=== PATIENT | male | born 1955 | race Caucasian/White ===

== ENCOUNTER → 2017-02-06 | Outpatient (REF) | payer OTHER | LOC: M SFHCPLAZ 10:06 | PROVIDERS: ATTEND Family Medicine | DX: K74.60 Unspecified cirrhosis of liver (principal); R63.4 Abnormal weight loss; B18.2 Chronic viral hepatitis C; K52.9 Noninfective gastroenteritis and colitis, unspecified; Z53.9 Procedure and treatment not carried out, unspecified reason ==

== ENCOUNTER → 2017-02-12 | Outpatient (CLI) | payer OTHER ==
[2017-02-12 19:22] LABS: MEAN CORPUSCULAR HGB CONC 34.2 g/dl (32.0-36.5); MEAN CORPUSCULAR VOLUME 96.4 fl (80.0-96.0); RED CELL DISTRIBUTION WIDTH 12.2 % (11.5-14.5); WHITE BLOOD COUNT 5.3 K/mm3 (4.0-10.0)
[2017-02-12 19:32] LABS: ALBUMIN 4.2 GM/DL (3.2-5.2); ALBUMIN/GLOBULIN RATIO 1.11 (1.00-1.93); ALKALINE PHOSPHATASE 108 U/L (45-117); ALT/SGPT 89 U/L (12-78); ANION GAP 10 MEQ/L (8-16); AST/SGOT 84 U/L (15-37); BILIRUBIN,TOTAL 0.6 MG/DL (0.2-1.0); BLOOD UREA NITROGEN 5 MG/DL (7-18); CARBON DIOXIDE LEVEL 23 MEQ/L (21-32); CHLORIDE LEVEL 100 MEQ/L (98-107); CREATININE FOR GFR 0.58 MG/DL (0.70-1.30); FREE T4 0.88 NG/DL (0.76-1.46); GLOMERULAR FILTRATION RATE > 60.0 (>56); GLUCOSE, FASTING 109 MG/DL (70-105); POTASSIUM SERUM 3.8 MEQ/L (3.5-5.1); SODIUM LEVEL 133 MEQ/L (136-145)
--- NOTE | 2017-02-12 23:42 | REP ---
Clinical: Abnormal weight loss. Comparison: None. Findings: The bilateral lung collins are well-aerated and demonstrate minimal emphysematous changes along with mild bronchiectasis. A small calcified granuloma is noted in the right lower lobe along with few calcified mediastinal lymph nodes suggesting prior granulomatous disease. No acute consolidation, nodule, or mass lesion appreciated. No pleural effusion/reaction or pneumothorax. Tracheobronchial tree is patent. No adenopathy. Mild atherosclerotic changes to the thoracic aorta and coronary arteries noted without aortic aneurysm, cardiomegaly, or pericardial effusion. Impression: Mild emphysematous changes and prior granulomatous disease. No acute mediastinal or pleuroparenchymal process appreciated. Signed by Odilon Perez MD 02/12/2017 11:33 P
--- NOTE | 2017-02-13 06:39 | REP ---
Clinical: Headache. Abnormal weight loss . Comparison: None . Findings: The ventricles, sulci, and cisterns are normal in position and appearance. Lamb-white differentiation is maintained. No acute intracranial hemorrhage, mass/mass effect, pathology or trauma/injury. No evidence for acute infarction. No extra-axial fluid collection. Calvarium is intact. Paranasal sinuses and mastoid air cells are clear. Impression: Normal noncontrast head CT. No evidence for acute intracranial pathology or trauma/injury. Signed by Odilon Perez MD 02/13/2017 06:30 A
[2017-02-18 14:18] LABS: Chitobioside Carbohydrat (ACCA 56 units (0-90); HEPATITIS C QUANTITATION HCV Not Detected IU/mL (.); Laminaribioside Carbohyd (ALCA 64 units (0-60); Mannobioside Carbohydrat (AMCA 112 units (0-100); Saccharomyces cerevisiae IgG A 32 units (0-50)
== END ==
LOC: M LAB 18:03
PROVIDERS: ATTEND Family Medicine
DX: J44.9 Chronic obstructive pulmonary disease, unspecified (principal); R63.4 Abnormal weight loss; G44.309 Post-traumatic headache, unspecified, not intractable; K74.60 Unspecified cirrhosis of liver; B18.2 Chronic viral hepatitis C; K52.9 Noninfective gastroenteritis and colitis, unspecified

== ENCOUNTER → 2017-02-22 | Outpatient (REF) | payer OTHER | LOC: M LAB REF 11:50 | PROVIDERS: ATTEND Family Medicine | DX: K52.9 Noninfective gastroenteritis and colitis, unspecified (principal) ==

== ENCOUNTER → 2017-04-22 | Outpatient (CLI) | payer OTHER ==
[~2017-04-22] MED LIST: FLUT1SPR2; FOLI1TAB4; MELO15TA4 PO; OMEP20CA3 PO; TRAZ-136 PO; VITA100T2
--- NOTE | 2017-04-22 09:46 | REP ---
RIGHT UPPER QUADRANT ULTRASOUND: Real-time sonographic evaluation of the right upper quadrant performed and compared to a prior study of . The gallbladder demonstrates no evidence of gallstones. There is no gallbladder wall thickening or pericholecystic fluid. There is no intrahepatic or extrahepatic biliary dilatation, the common bile duct measuring 6 mm in diameter. The liver and pancreas demonstrate homogeneous echotexture with no gross mass, pancreatic tail is not well seen due to overlying bowel gas. Right kidney demonstrates no hydronephrosis or nephrolithiasis with normal size at 12.3 cm in length. IMPRESSION: Essentially negative right upper quadrant ultrasound. Signed by Henrique Lamb MD 04/22/2017 11:58 A
== END ==
LOC: M RAD 08:52
PROVIDERS: ATTEND Family Medicine
DX: B18.2 Chronic viral hepatitis C (principal)

== ENCOUNTER → 2017-05-15 | Outpatient (CLI) | payer OTHER ==
[~2017-05-15] MED LIST changes: +GASTROGRAFIN SOLUTION 30ML (Q9963) As Ordered ONE; +ISOVUE-370 76% 100ML VIAL (Q9967) As Ordered ONE
--- NOTE | 2017-05-16 14:33 | REP ---
Nickel: Abnormal weight loss. Technique: Axial contrast enhanced images from the lung bases to the pubic symphysis using oral and 100 ml Isovue 370 intravenous contrast material with precontrast and delayed images of the abdomen as well as coronal and sagittal re-formations. Findings: Lung bases are clear. Visualized heart and pericardium are normal. Liver, spleen, pancreas, gallbladder, bilateral adrenal glands and kidneys are normal. Prominent lymph nodes in the livia hepatis and epigastric region above the level of the pancreatic head/neck measure up to 17 mm and are otherwise nonspecific. The enteric system including stomach, small and large bowel is without obstruction or acute inflammatory process. Surgical clips in the right lower quadrant suggest prior appendectomy. Pelvis demonstrates normal bladder and mildly prominent prostate gland measuring 4.9 cm maximal diameter. No pelvic fluid or ascites. No retroperitoneal adenopathy. No free air. Impression: 1. Mildly prominent lymph nodes in the livia hepatis and epigastric region are otherwise nonspecific. No obvious upper abdominal mass lesion or further pathology is appreciated at CT evaluation. 2. Prominent prostate gland measuring 4.9 cm maximal diameter. Signed by Odilon Perez MD 05/16/2017 12:25 A
== END ==
LOC: M RAD 09:09
PROVIDERS: ATTEND Internal Medicine Gastroenterology
DX: R63.4 Abnormal weight loss (principal)
CPT/HCPCS: 74178; Q9963; Q9967

== ENCOUNTER → 2017-05-23 | Outpatient (CLI) | payer OTHER ==
[~2017-05-23] VITALS: Ht 177.8 cm; Wt 68.9 kg
[~2017-05-23] MED LIST changes: -GASTROGRAFIN SOLUTION 30ML (Q9963) As Ordered ONE; -ISOVUE-370 76% 100ML VIAL (Q9967) As Ordered ONE; +LIDOCAINE 2% INJ 100 MG/5 ML SDV (FOR ANES.) As Ordered ONE; +NS 1,000 ML IV ONE; +PROPOFOL 200 MG/20 ML VIAL As Ordered ONE
--- NOTE | 2017-05-23 12:10 | ROOR ---
Patient Name: Maverick Benjamin Procedure Date: 05/23/2017 11:27 AM Date of : 1955 Age: 61 Room: [facility] Gender: Male Note Status: Finalized Procedure: Upper GI endoscopy Indications: Cirrhosis with suspected esophageal varices, Weight loss Providers: Kali Hampton MD Referring MD: Yonatan Ortiz MD Requesting Provider: Medicines: Monitored Anesthesia Care Complications: No immediate complications. Procedure: Pre-Anesthesia Assessment: - Prior to the procedure, a History and Physical was performed, and patient medications and allergies were reviewed. The patient is competent. The risks and benefits of the procedure and the sedation options and risks were discussed with the patient. All questions were answered and informed consent was obtained. Patient identification and proposed procedure were verified by the physician, the nurse and the fishery biologist in the procedure room. Mental Status Examination: normal. Airway Examination: normal oropharyngeal airway and neck mobility. Respiratory Examination: clear to auscultation. CV Examination: normal. Prophylactic Antibiotics: The patient does not require prophylactic antibiotics. Prior Anticoagulants: The patient has taken no previous anticoagulant or antiplatelet agents. ASA Grade Assessment: II - A patient with mild systemic disease. After reviewing the risks and benefits, the patient was deemed in satisfactory condition to undergo the procedure. The anesthesia plan was to use monitored anesthesia care (MAC). Immediately prior to administration of medications, the patient was re-assessed for adequacy to receive sedatives. The heart rate, respiratory rate, oxygen saturations, blood pressure, adequacy of pulmonary ventilation, and response to care were monitored throughout the procedure. The physical status of the patient was re-assessed after the procedure. The Endoscope was introduced through the mouth, and advanced to the second part of duodenum. The upper GI endoscopy was accomplished without difficulty. The patient tolerated the procedure well. Findings: The examined esophagus was normal. There is no endoscopic evidence of varices in the entire esophagus. Diffuse minimal inflammation characterized by erythema and granularity was found in the gastric body and in the gastric antrum. Biopsies were taken with a cold forceps for histology. No gross lesions were noted in the duodenal bulb and in the second portion of the duodenum. Biopsies for histology were taken with a cold forceps for evaluation of celiac disease. Verification of patient identification for the specimen was done by the physician and nurse using the patient's name, date and medical record number. Estimated blood loss was minimal. Impression: - Normal esophagus. - Gastritis. Biopsied. - No gross lesions in the duodenal bulb and in the second portion of the duodenum. Biopsied. Recommendation: - Patient has a contact number available for emergencies. The signs and symptoms of potential delayed complications were discussed with the patient. Return to normal activities tomorrow. Written discharge instructions were provided to the patient. - Resume previous diet. - Continue present medications. - Await pathology results. - Return to GI clinic as previously scheduled 06/06/2017 at 1:30 PM. - Return to primary care physician. Kali Hampton MD Kali Hampton MD 05/23/2017 12:10:07 PM This report has been signed electronically. Number of Addenda: 0 Note Initiated On: 05/23/2017 11:27 AM Estimated Blood Loss: Estimated blood loss was minimal.
--- NOTE | 2017-05-23 12:16 | ROOR ---
Patient Name: Maverick Benjamin Procedure Date: 05/23/2017 11:27 AM Date of : 1955 Age: 61 Room: [facility] Gender: Male Note Status: Finalized Procedure: Colonoscopy Indications: Chronic diarrhea Providers: Kali Hampton MD Referring MD: Yonatan Ortiz MD Requesting Provider: Medicines: Monitored Anesthesia Care Complications: No immediate complications. Procedure: Pre-Anesthesia Assessment: - Prior to the procedure, a History and Physical was performed, and patient medications and allergies were reviewed. The patient is competent. The risks and benefits of the procedure and the sedation options and risks were discussed with the patient. All questions were answered and informed consent was obtained. Patient identification and proposed procedure were verified by the physician, the nurse and the concession attendant in the procedure room. Mental Status Examination: alert and oriented. Airway Examination: normal oropharyngeal airway and neck mobility. Respiratory Examination: clear to auscultation. CV Examination: normal. Prophylactic Antibiotics: The patient does not require prophylactic antibiotics. Prior Anticoagulants: The patient has taken no previous anticoagulant or antiplatelet agents. ASA Grade Assessment: II - A patient with mild systemic disease. After reviewing the risks and benefits, the patient was deemed in satisfactory condition to undergo the procedure. The anesthesia plan was to use monitored anesthesia care (MAC). Immediately prior to administration of medications, the patient was re-assessed for adequacy to receive sedatives. The heart rate, respiratory rate, oxygen saturations, blood pressure, adequacy of pulmonary ventilation, and response to care were monitored throughout the procedure. The physical status of the patient was re-assessed after the procedure. The Colonoscope was introduced through the anus and advanced to the terminal ileum, with identification of the appendiceal orifice and IC valve. The colonoscopy was performed without difficulty. The patient tolerated the procedure well. The quality of the bowel preparation was adequate to identify polyps 6 mm and larger in size and fair. The terminal ileum, ileocecal valve, appendiceal orifice, and rectum were photographed. Scope insertion time was 3 minutes. Scope withdrawal time was 12 minutes. The total duration of the procedure was 17 minutes. Findings: The perianal and digital rectal examinations were normal. The terminal ileum appeared normal. A 3 mm polyp was found in the ascending colon. The polyp was sessile. The polyp was removed with a cold biopsy forceps. Resection and retrieval were complete. Verification of patient identification for the specimen was done by the physician and nurse using the patient's name, date and medical record number. Estimated blood loss was minimal. Two sessile polyps were found in the transverse colon. The polyps were 3 to 4 mm in size. These polyps were removed with a cold biopsy forceps. Resection and retrieval were complete. A few sessile polyps were found in the rectum. The polyps were 3 to 4 mm in size. These polyps were removed with a cold biopsy forceps. Resection and retrieval were complete. Non-bleeding external and internal hemorrhoids were found during retroflexion. The hemorrhoids were large. Normal mucosa was found from rectum to cecum. Biopsies for histology were taken with a cold forceps from the ascending colon, transverse colon and rectum for evaluation of microscopic colitis. Impression: - Preparation of the colon was fair. - The examined portion of the ileum was normal. - One 3 mm polyp in the ascending colon, removed with a cold biopsy forceps. Resected and retrieved. - Two 3 to 4 mm polyps in the transverse colon, removed with a cold biopsy forceps. Resected and retrieved. - A few 3 to 4 mm polyps in the rectum, removed with a cold biopsy forceps. Resected and retrieved. - Non-bleeding external and internal hemorrhoids. - Normal mucosa from rectum to cecum. Biopsied. Recommendation: - Patient has a contact number available for emergencies. The signs and symptoms of potential delayed complications were discussed with the patient. Return to normal activities tomorrow. Written discharge instructions were provided to the patient. - Resume previous diet. - Continue present medications. - Await pathology results. - Repeat colonoscopy in 3 - 5 years for surveillance based on pathology results. - Return to GI clinic as previously scheduled 06/06/2017 at 1:30 PM - Return to primary care physician. Kali Hampton MD Kali Hampton MD 05/23/2017 12:15:50 PM This report has been signed electronically. Number of Addenda: 0 Note Initiated On: 05/23/2017 11:27 AM Estimated Blood Loss: Estimated blood loss was minimal.
[2017-05-23 12:42] VITALS: BP 149/86
== END | disposition home or self-care (01) ==
LOC: M OPP 10:07
PROVIDERS: ATTEND Internal Medicine Gastroenterology
DX: R19.7 Diarrhea, unspecified (principal); R63.4 Abnormal weight loss; D12.2 Benign neoplasm of ascending colon; D12.3 Benign neoplasm of transverse colon; K62.1 Rectal polyp; K64.4 Residual hemorrhoidal skin tags; K64.8 Other hemorrhoids; K74.60 Unspecified cirrhosis of liver; K29.70 Gastritis, unspecified, without bleeding; Z86.19 Personal history of other infectious and parasitic diseases; M19.90 Unspecified osteoarthritis, unspecified site; R06.2 Wheezing; F19.10 Other psychoactive substance abuse, uncomplicated; Z79.899 Other long term (current) drug therapy; Z80.1 Family history of malignant neoplasm of trachea, bronchus and lung

== ENCOUNTER 2017-06-11 19:38 | Emergency (ER) | payer OTHER ==
[~2017-06-11] VITALS: Ht 177.8 cm; Wt 66.8 kg
[~2017-06-11 19:38] MED LIST changes: -FOLI1TAB4; -LIDOCAINE 2% INJ 100 MG/5 ML SDV (FOR ANES.) As Ordered ONE; -NS 1,000 ML IV ONE; -PROPOFOL 200 MG/20 ML VIAL As Ordered ONE; -VITA100T2
[2017-06-11] MEDS ORDERED: VITA100T2 (19:58)
[2017-06-11] MEDS ORDERED: FOLI1TAB4 (19:58)
[2017-06-11] MEDS ORDERED: NS 1,000 ML IV ONE (20:30)
[2017-06-11] MEDS ORDERED: GI COCKTAIL 50ML BTL(HYOSCYAMINE/MAALOX/LIDOCAINE VISCOUS)(1:3:1) PO ONE (20:30)
[2017-06-11] MEDS ORDERED: ASPIRIN 81 MG CHEW TABLET PO ONE (20:30)
[2017-06-11 20:58] LABS: INR 0.99
[2017-06-11 21:16] LABS: ALBUMIN 4.1 GM/DL (3.2-5.2); ALBUMIN/GLOBULIN RATIO 1.17 (1.00-1.93); ALKALINE PHOSPHATASE 113 U/L (45-117); ALT/SGPT 101 U/L (12-78); ANION GAP 8 MEQ/L (8-16); AST/SGOT 133 U/L (15-37); BILIRUBIN,DIRECT 0.2 MG/DL (0.0-0.2); BILIRUBIN,TOTAL 0.6 MG/DL (0.2-1.0); BLOOD UREA NITROGEN 6 MG/DL (7-18); CALCIUM LEVEL 8.3 MG/DL (8.5-10.1); CARBON DIOXIDE LEVEL 23 MEQ/L (21-32); CHLORIDE LEVEL 103 MEQ/L (98-107); CREATININE FOR GFR 0.57 MG/DL (0.70-1.30); GLOMERULAR FILTRATION RATE > 60.0 (>56); GLUCOSE, FASTING 86 MG/DL (70-105); POTASSIUM SERUM 3.9 MEQ/L (3.5-5.1); SODIUM LEVEL 134 MEQ/L (136-145); TOTAL PROTEIN 7.6 GM/DL (6.4-8.2)
[2017-06-11 21:21] LABS: BASO # 0.1 10^3/uL (0.0-0.2); EOS # 0.1 10^3/uL (0.0-0.50); IMMATURE GRANULOCYTE % 0.3 % (0-0); LYMPH # 2.4 10^3/uL (1.5-4.5); LYMPH % 39.6 % (24.0-44.0); MEAN CORPUSCULAR HGB CONC 35.8 g/dl (32.0-36.5); MEAN CORPUSCULAR VOLUME 92.2 fl (80.0-96.0); MONO # 0.6 10^3/uL (0.0-0.8); MONO % 9.9 % (0.0-5.0); NEUTROPHILS # 2.9 10^3/uL (1.8-7.7); NEUTROPHILS % 47.2 % (36.0-66.0); PLATELET COUNT, AUTOMATED 104 10^3/uL (150-450); RED CELL DISTRIBUTION WIDTH 12.2 % (11.5-14.5); WHITE BLOOD COUNT 6.1 10^3/uL (4.0-10.0)
[2017-06-11 21:46] LABS: METHADONE URINE NEGATIVE (NEGATIVE)
[2017-06-11 21:47] LABS: ADD MORPHOLOGY? NO
[2017-06-11 22:15] VITALS: BP 118/61
--- NOTE | 2017-06-12 00:14 | REP ---
Clinical: Chest pain . Comparison: 04/13/2016 . Technique: PA and lateral. Findings: The mediastinum and cardiac silhouette are normal. The lung collins are clear and without acute consolidation, effusion, or pneumothorax. The skeletal structures are intact and normal. Impression: 1. No acute cardiopulmonary process. Signed by Odilon Perez MD 06/12/2017 12:06 A
--- NOTE | 2017-06-12 20:44 | ECGEPIP ---
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
== END 2017-06-11 22:22 | disposition home or self-care (01) ==
LOC: M ED 19:38
DX: F32.9 Major depressive disorder, single episode, unspecified (principal); F10.20 Alcohol dependence, uncomplicated; F17.200 Nicotine dependence, unspecified, uncomplicated; Z79.899 Other long term (current) drug therapy

== ENCOUNTER → 2017-07-29 | Outpatient (REF) | payer OTHER ==
[~2017-07-29] MED LIST changes: +FOLI1TAB4; +VITA100T2
[2017-07-29 13:24] LABS: MEAN CORPUSCULAR HEMOGLOBIN 32.6 pg (27.0-33.0); MEAN CORPUSCULAR HGB CONC 34.4 g/dl (32.0-36.5); PLATELET COUNT, AUTOMATED 189 10^3/uL (150-450); RED CELL DISTRIBUTION WIDTH 11.8 % (11.5-14.5); WHITE BLOOD COUNT 6.2 10^3/uL (4.0-10.0)
[2017-07-29 13:47] LABS: ALBUMIN 4.4 GM/DL (3.2-5.2); ALKALINE PHOSPHATASE 82 U/L (45-117); ALT/SGPT 67 U/L (12-78); ANION GAP 7 MEQ/L (8-16); AST/SGOT 77 U/L (7-37); BILIRUBIN,TOTAL 0.6 MG/DL (0.2-1.0); BLOOD UREA NITROGEN 6 MG/DL (7-18); CALCIUM LEVEL 9.9 MG/DL (8.5-10.1); CARBON DIOXIDE LEVEL 27 MEQ/L (21-32); CHLORIDE LEVEL 102 MEQ/L (98-107); CREATININE FOR GFR 0.68 MG/DL (0.70-1.30); GLOMERULAR FILTRATION RATE > 60.0 (>56); GLUCOSE, FASTING 96 MG/DL (70-105); SODIUM LEVEL 136 MEQ/L (136-145); TOTAL PROTEIN 8.4 GM/DL (6.4-8.2)
[2017-07-29 13:50] LABS: POTASSIUM SERUM 5.4 MEQ/L (3.5-5.1)
== END ==
LOC: M SFHCPLAZ 10:52
PROVIDERS: ATTEND Family Medicine
DX: B18.2 Chronic viral hepatitis C (principal)

== ENCOUNTER → 2017-10-13 | Outpatient (CLI) | payer OTHER | LOC: M RAD 07:25 | DX: B18.2 Chronic viral hepatitis C (principal); K74.60 Unspecified cirrhosis of liver; R77.2 Abnormality of alphafetoprotein | CPT/HCPCS: 76705 ==

== ENCOUNTER → 2017-11-27 | Outpatient (REF) | payer OTHER | LOC: M SFHCPLAZ 17:01 | DX: J02.9 Acute pharyngitis, unspecified (principal) ==

== ENCOUNTER → 2018-01-27 | Outpatient (REF) | payer OTHER ==
[2018-01-27 19:13] LABS: HEMATOCRIT 39.6 % (42.0-52.0); HEMOGLOBIN 13.3 g/dl (13.5-17.5); MEAN CORPUSCULAR HEMOGLOBIN 31.8 pg (27.0-33.0); MEAN CORPUSCULAR HGB CONC 33.6 g/dl (32.0-36.5); MEAN CORPUSCULAR VOLUME 94.7 fl (80.0-96.0); PLATELET COUNT, AUTOMATED 215 10^3/uL (150-450); RED BLOOD COUNT 4.18 10^6/uL (4.30-6.10); RED CELL DISTRIBUTION WIDTH 12.2 % (11.5-14.5); WHITE BLOOD COUNT 5.8 10^3/uL (4.0-10.0)
[2018-01-27 19:30] LABS: ANION GAP 6 MEQ/L (8-16); BLOOD UREA NITROGEN 8 MG/DL (7-18); CALCIUM LEVEL 8.7 MG/DL (8.8-10.2); CARBON DIOXIDE LEVEL 26 MEQ/L (21-32); CHLORIDE LEVEL 110 MEQ/L (98-107); CREATININE FOR GFR 0.82 MG/DL (0.70-1.30); GLOMERULAR FILTRATION RATE > 60.0 (>49); GLUCOSE, FASTING 95 MG/DL (70-100); POTASSIUM SERUM 4.1 MEQ/L (3.5-5.1); SODIUM LEVEL 142 MEQ/L (136-145)
[2018-01-27 19:31] LABS: ALBUMIN/GLOBULIN RATIO 1.11 (1.00-1.93); ALKALINE PHOSPHATASE 87 U/L (45-117); ALT/SGPT 21 U/L (12-78); AST/SGOT 20 U/L (7-37); BILIRUBIN,TOTAL 0.3 MG/DL (0.2-1.0); PSA SCREENING 0.79 NG/ML (< 4.0); TOTAL PROTEIN 7.6 GM/DL (6.4-8.2)
[2018-01-27 19:36] LABS: ALPHA FETOPROTEIN TUMOR QUANT < 1.3 NG/ML (<8.1)
== END ==
LOC: M SFHCADAM 11:29
DX: K74.60 Unspecified cirrhosis of liver (principal); F32.9 Major depressive disorder, single episode, unspecified; Z12.5 Encounter for screening for malignant neoplasm of prostate; R77.2 Abnormality of alphafetoprotein

== ENCOUNTER 2018-06-07 13:49 | Emergency (ER) | payer OTHER ==
[2018-06-07] MEDS: NORCO, ANEXSIA 5/325MG TABLET (HYDROcodone/ACETAMINOPHEN) PO (14:20)
== END 2018-06-07 15:39 | disposition home or self-care (01) ==
LOC: M ED 13:49
DX: S13.4XXA Sprain of ligaments of cervical spine, initial encounter (principal); G44.309 Post-traumatic headache, unspecified, not intractable; Y04.8XXA Assault by other bodily force, initial encounter; Y92.89 Other specified places as the place of occurrence of the external cause; K21.9 Gastro-esophageal reflux disease without esophagitis; F17.210 Nicotine dependence, cigarettes, uncomplicated; Z79.899 Other long term (current) drug therapy
CPT/HCPCS: 70450

== ENCOUNTER → 2018-07-30 | Outpatient (REF) | payer OTHER ==
[2018-07-30 20:15] LABS: HEMATOCRIT 48.8 % (42.0-52.0); HEMOGLOBIN 16.5 g/dl (13.5-17.5); MEAN CORPUSCULAR HEMOGLOBIN 32.2 pg (27.0-33.0); MEAN CORPUSCULAR HGB CONC 33.8 g/dl (32.0-36.5); MEAN CORPUSCULAR VOLUME 95.3 fl (80.0-96.0); PLATELET COUNT, AUTOMATED 211 10^3/uL (150-450); RED BLOOD COUNT 5.12 10^6/uL (4.30-6.10); RED CELL DISTRIBUTION WIDTH 12.1 % (11.5-14.5); WHITE BLOOD COUNT 7.4 10^3/uL (4.0-10.0)
[2018-07-30 20:35] LABS: ALBUMIN 4.4 GM/DL (3.2-5.2); ALBUMIN/GLOBULIN RATIO 1.16 (1.00-1.93); ALKALINE PHOSPHATASE 101 U/L (45-117); ALT/SGPT 24 U/L (12-78); ANION GAP 8 MEQ/L (8-16); AST/SGOT 24 U/L (7-37); BILIRUBIN,TOTAL 0.6 MG/DL (0.2-1.0); BLOOD UREA NITROGEN 7 MG/DL (7-18); CALCIUM LEVEL 9.7 MG/DL (8.8-10.2); CARBON DIOXIDE LEVEL 28 MEQ/L (21-32); CHLORIDE LEVEL 100 MEQ/L (98-107); CHOLESTEROL LEVEL 175 MG/DL (<200); CHOLESTEROL RISK RATIO 2.333 (<5); CREATININE FOR GFR 0.71 MG/DL (0.70-1.30); GLOMERULAR FILTRATION RATE > 60.0 (>49); GLUCOSE, FASTING 123 MG/DL (70-100); HDL CHOLESTEROL 75 MG/DL (>40); LDL CHOLESTEROL 81 MG/DL (<100); NON-HDL-C 100 MG/DL; POTASSIUM SERUM 5.3 MEQ/L (3.5-5.1); SODIUM LEVEL 136 MEQ/L (136-145); TOTAL PROTEIN 8.2 GM/DL (6.4-8.2); TRIGLYCERIDES LEVEL 96 MG/DL (<150)
== END ==
LOC: M SFHCADAM 12:03
DX: B18.2 Chronic viral hepatitis C (principal); R77.2 Abnormality of alphafetoprotein; F32.9 Major depressive disorder, single episode, unspecified
CPT/HCPCS: 84443

== ENCOUNTER 2018-11-18 12:23 | Emergency (ER) | payer OTHER ==
[~2018-11-18] VITALS: Ht 177.8 cm; Wt 71.6 kg
[~2018-11-18 12:23] MED LIST changes: +FOLI1TAB11; -FOLI1TAB4; +MELO15TA28 PO; -MELO15TA4 PO; -TRAZ-136 PO; +TRAZ-163 PO; -VITA100T2; +VITA100T8
[2018-11-18] MEDS ORDERED: NS 1,000 ML IV ONE (13:15)
[2018-11-18 13:40] LABS: BASO # 0.1 10^3/uL (0.0-0.2); BASO % 1.4 % (0.0-1.0); EOS # 0.1 10^3/uL (0.0-0.50); HEMATOCRIT 46.7 % (42.0-52.0); HEMOGLOBIN 16.6 g/dl (13.5-17.5); LYMPH # 1.2 10^3/uL (1.5-4.5); MEAN CORPUSCULAR HEMOGLOBIN 32.9 pg (27.0-33.0); MEAN CORPUSCULAR HGB CONC 35.5 g/dl (32.0-36.5); MEAN CORPUSCULAR VOLUME 92.5 fl (80.0-96.0); MONO # 0.6 10^3/uL (0.0-0.8); MONO % 10.9 % (0.0-5.0); NEUTROPHILS # 3.2 10^3/uL (1.8-7.7); NEUTROPHILS % 62.5 % (36.0-66.0); PLATELET COUNT, AUTOMATED 192 10^3/uL (150-450); RED BLOOD COUNT 5.05 10^6/uL (4.30-6.10)
[2018-11-18] MEDS: GASTROGRAFIN SOLUTION 30ML PO SCH ×2 (13:45→14:13)
[2018-11-18 14:12] LABS: ALBUMIN 3.9 GM/DL (3.2-5.2); ALT/SGPT 87 U/L (12-78); AMYLASE 37 U/L (25-115); BILIRUBIN,DIRECT 0.2 MG/DL (0.0-0.2); BILIRUBIN,TOTAL 0.6 MG/DL (0.2-1.0); BLOOD UREA NITROGEN 4 MG/DL (7-18); CALCIUM LEVEL 8.4 MG/DL (8.8-10.2); CARBON DIOXIDE LEVEL 22 MEQ/L (21-32); CHLORIDE LEVEL 99 MEQ/L (98-107); CREATININE FOR GFR 0.65 MG/DL (0.70-1.30); GLOMERULAR FILTRATION RATE > 60.0 (>49); GLUCOSE, FASTING 116 MG/DL (70-100); LIPASE 127 U/L (73-393); POTASSIUM SERUM 3.5 MEQ/L (3.5-5.1); SODIUM LEVEL 132 MEQ/L (136-145); TOTAL PROTEIN 8.2 GM/DL (6.4-8.2)
[2018-11-18] MEDS ORDERED: ISOVUE-370 76% 100ML VIAL (Q9967) As Ordered ONE (14:35)
--- NOTE | 2018-11-18 16:38 | REP ---
CT ABDOMEN AND PELVIS WITH ORAL AND IV CONTRAST: TECHNIQUE: Axial contrast enhanced images from the lung bases to the pubic symphysis using 100 mL Isovue 370 intravenous contrast material with multiplanar reformations. COMPARISON: 05/15/2017 Visualized lung bases are clear. Liver demonstrates diffuse fatty infiltration. Gallbladder is grossly unremarkable. Spleen demonstrates a few tiny calcified granulomas. Adrenals, pancreas and kidneys appear unremarkable. There is no hydroureteronephrosis bilaterally. There is moderate atherosclerotic calcification of the abdominal aorta without evidence of aneurysm. There is no adenopathy. There is no free air or free fluid. There is no bowel wall thickening. There are metallic clips in the right lower quadrant. No pelvic mass is seen. Urinary bladder is unremarkable. IMPRESSION: No acute abnormalities. Diffuse fatty infiltration of the liver. Electronically Signed by Henrique Lamb MD 11/18/2018 11:49 P
[2018-11-18 16:54] VITALS: BP 134/81
== END 2018-11-18 17:20 | disposition home or self-care (01) ==
LOC: M ED 12:23
DX: R63.0 Anorexia (principal); E87.1 Hypo-osmolality and hyponatremia
CPT/HCPCS: 74177; 80048; 80076; 82150; 83690; 85025; 87507; 96360; 99284; Q9963; Q9967

== ENCOUNTER → 2018-11-25 | Outpatient (REF) | payer OTHER | LOC: M SFHCPLAZ 18:21 | PROVIDERS: ATTEND Physician Assistant | DX: R63.0 Anorexia (principal) ==

== ENCOUNTER → 2019-01-14 | Outpatient (CLI) | payer OTHER ==
--- NOTE | 2019-01-18 16:12 | REP ---
Clinical: Lung screening. History smoking. Comparison: 02/12/2017. Technique: Axial low-dose noncontrast images from the thoracic inlet to the upper abdomen using lung screening technique. Findings: The lung collins are well-aerated. No consolidation, significant nodule or mass lesion is appreciated. Few small 2 mm calcified nodules are identified consistent with prior granulomatous disease and remain stable compared to 02/12/2017. No pleural effusion/reaction or pneumothorax. Tracheobronchial tree is patent. Mediastinum demonstrates mild atherosclerotic changes of the coronary arteries without cardiomegaly. Impression: Lung-RADS category I. No significant nodule or suspicious abnormality. Evidence for granulomatous disease. Management recommendations include annual low-dose CT evaluation. Electronically Signed by Odilon Perez MD 01/15/2019 05:36 A
== END ==
LOC: M RAD 15:47
PROVIDERS: ATTEND Physician Assistant
DX: Z12.2 Encounter for screening for malignant neoplasm of respiratory organs (principal); Z87.891 Personal history of nicotine dependence; R91.8 Other nonspecific abnormal finding of lung field

== ENCOUNTER 2019-05-14 15:55 | Emergency (ER) | payer OTHER ==
[~2019-05-14] VITALS: Ht 177.8 cm; Wt 77.3 kg
[~2019-05-14 15:55] MED LIST changes: -OMEP20CA3 PO; +OMEP20CA4 PO
[2019-05-14 16:06] VITALS: BP 135/79
[2019-05-14] MEDS ORDERED: OXYC1TAB23 (16:10)
[2019-05-14] MEDS ORDERED: NS 1,000 ML IV SCH (16:15)
[2019-05-14 16:44] LABS: HEMATOCRIT 38.5 % (42.0-52.0); HEMOGLOBIN 13.5 g/dl (13.5-17.5); MEAN CORPUSCULAR HEMOGLOBIN 33.7 pg (27.0-33.0); MEAN CORPUSCULAR HGB CONC 35.1 g/dl (32.0-36.5); PLATELET COUNT, AUTOMATED 143 10^3/uL (150-450); RED BLOOD COUNT 4.01 10^6/uL (4.30-6.10); WHITE BLOOD COUNT 6.3 10^3/uL (4.0-10.0)
[2019-05-14 16:59] LABS: BLOOD UREA NITROGEN 6 MG/DL (7-18); CARBON DIOXIDE LEVEL 23 MEQ/L (21-32); CHLORIDE LEVEL 103 MEQ/L (98-107); CREATININE FOR GFR 0.61 MG/DL (0.70-1.30); ETHYL ALCOHOL (ETHANOL) 0.173 % (0.000-0.010); GLOMERULAR FILTRATION RATE > 60.0 (>49); GLUCOSE, FASTING 84 MG/DL (70-100); SODIUM LEVEL 137 MEQ/L (136-145)
[2019-05-14] MEDS ORDERED: ISOVUE-370 76% 100ML VIAL (Q9967) As Ordered ONE (17:07)
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
== END 2019-05-14 17:33 | disposition left against medical advice (07) ==
LOC: M ED 15:55 → EDBD 15:55 → M ED 17:33
DX: Z04.1 Encounter for examination and observation following transport accident (principal); F10.20 Alcohol dependence, uncomplicated; V13.4XXA Pedal cycle driver injured in collision with car, pick-up truck or van in traffic accident, initial encounter; Y92.410 Unspecified street and highway as the place of occurrence of the external cause; Z79.899 Other long term (current) drug therapy; F17.210 Nicotine dependence, cigarettes, uncomplicated
CPT/HCPCS: 36415; 70450; 71260; 72125; 73070; 80048; 85027; 99284; G0480; Q9967

== ENCOUNTER 2019-05-16 11:39 | Emergency (ER) | payer OTHER ==
[~2019-05-16] VITALS: Ht 177.8 cm; Wt 77.1 kg
[~2019-05-16 11:39] MED LIST changes: +OXYC1TAB23
[2019-05-16 11:40] VITALS: BP 134/76
[2019-05-16 13:01] LABS: AMPHETAMINES LEVEL URINE NEGATIVE (NEGATIVE); BARBITURATES URINE NEGATIVE (NEGATIVE); BENZODIAZEPINES URINE NEGATIVE (NEGATIVE); CANNABINOIDS URINE NEGATIVE (NEGATIVE); COCAINE METABOLITE URINE NEGATIVE (NEGATIVE); METHADONE URINE NEGATIVE (NEGATIVE); OPIATES URINE NEGATIVE (NEGATIVE); PHENCYCLIDINE URINE NEGATIVE (NEGATIVE)
[2019-05-16] MEDS ORDERED: IBUPROFEN 800 MG TAB PO ONE (13:30)
== END 2019-05-16 13:30 | disposition home or self-care (01) ==
LOC: M ED 11:39
DX: M54.2 Cervicalgia (principal); F10.129 Alcohol abuse with intoxication, unspecified; K21.9 Gastro-esophageal reflux disease without esophagitis; F17.210 Nicotine dependence, cigarettes, uncomplicated; Z87.828 Personal history of other (healed) physical injury and trauma
CPT/HCPCS: 36415; 80307; 99284; G0480

== ENCOUNTER → 2019-10-06 | Outpatient (REF) | payer OTHER ==
[~2019-10-06] MED LIST changes: +OMEP1CAP73 PO; -OMEP20CA4 PO; -TRAZ-163 PO; +TRAZ-257 PO
[2019-10-06 13:26] LABS: HEMATOCRIT 48.3 % (42.0-52.0); HEMOGLOBIN 15.9 g/dl (13.5-17.5); MEAN CORPUSCULAR HEMOGLOBIN 32.1 pg (27.0-33.0); MEAN CORPUSCULAR HGB CONC 32.9 g/dl (32.0-36.5); MEAN CORPUSCULAR VOLUME 97.4 fl (80.0-96.0); PLATELET COUNT, AUTOMATED 214 10^3/uL (150-450); RED BLOOD COUNT 4.96 10^6/uL (4.30-6.10); WHITE BLOOD COUNT 5.1 10^3/uL (4.0-10.0)
[2019-10-06 14:11] LABS: ALBUMIN 4.2 GM/DL (3.2-5.2); ALT/SGPT 34 U/L (12-78); BILIRUBIN,TOTAL 0.5 MG/DL (0.2-1.0); BLOOD UREA NITROGEN 5 MG/DL (7-18); CALCIUM LEVEL 8.8 MG/DL (8.8-10.2); CARBON DIOXIDE LEVEL 24 MEQ/L (21-32); CHLORIDE LEVEL 101 MEQ/L (98-107); CHOLESTEROL LEVEL 174 MG/DL (<200); CHOLESTEROL RISK RATIO 2.558 (<5); CREATININE FOR GFR 0.78 MG/DL (0.70-1.30); FREE T4 0.89 NG/DL (0.76-1.46); GLOMERULAR FILTRATION RATE > 60.0 (>49); GLUCOSE, FASTING 85 MG/DL (70-100); HDL CHOLESTEROL 68 MG/DL (>40); LDL CHOLESTEROL 95 MG/DL (<100); NON-HDL-C 106 MG/DL; POTASSIUM SERUM 4.7 MEQ/L (3.5-5.1); SODIUM LEVEL 136 MEQ/L (136-145); TRIGLYCERIDES LEVEL 54 MG/DL (<150)
[2019-10-06 14:42] LABS: HEMOGLOBIN A1c 5.1 %
== END ==
LOC: M SFHCADAM 11:03
PROVIDERS: ATTEND Family Medicine
DX: R77.2 Abnormality of alphafetoprotein (principal); K74.60 Unspecified cirrhosis of liver; F32.9 Major depressive disorder, single episode, unspecified; K76.0 Fatty (change of) liver, not elsewhere classified

== ENCOUNTER → 2019-11-17 | Outpatient (CLI) | payer OTHER ==
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
== END ==
LOC: M PAIN 10:30
PROVIDERS: ATTEND Nurse Practitioner Family
DX: M54.2 Cervicalgia (principal); Z86.19 Personal history of other infectious and parasitic diseases; J44.9 Chronic obstructive pulmonary disease, unspecified; F17.210 Nicotine dependence, cigarettes, uncomplicated; Z88.8 Allergy status to other drugs, medicaments and biological substances; Z79.899 Other long term (current) drug therapy

== ENCOUNTER 2020-10-05 10:37 | Emergency (ER) | payer OTHER, SELFPAY ==
[~2020-10-05] VITALS: Ht 177.8 cm; Wt 78.3 kg
--- OUTSIDE RECORDS SUMMARY | 2020-10-05 10:51 | CCD | Continuity of Care Document ---
Author Author Maverick BIRD M.D. Organization Unknown Address [address] [place] [address] Phone [phone] Problems Description No Information Available Social History Type Date Description Comments Sex Unknown Allergies, Adverse Reactions, Alerts Description No Known Drug Allergies Medications Active Medications SIG Qnty Indications Ordering Provide r Date Meloxicam 15mg Tablets 1 by mouth tid 90taErick Zazueta M.D. 07/17/2020 Acamprosate Calcium 333mg Tablets DR 2 tabs po tid 90taErick Zazueta M.D. 07/14/[address] by mouth daily 30caps Erick Bird M.D. 07/14/2020 Anoro Ellipta 62.5-25mcg/Inh Aeros ol 1 puff by mouth daily 2units Erick Bird M.D. 07/14/20 20 Fluticasone Propionate 50mcg/Act Suspension 1 spray per nostril twice a day 16gm Sarah Bird M.D. 07/14/2020 History Medications Melodetta 24 Fe 1-20mg-mcg(24) ChewErick Bustillo M.D. 07/17/2020 - 020 Meloxicam 15mg Tablets 1 by mouth every day 90taErick Zazueta M.D. 07/14/2020 - 07/17/2020 Immunizations Description No Information Available Vital Signs Date Vital Result Comment 07/14/2020 9:39am BP Systolic 126 mmHg BP Diastolic 79 mmHg Heart Rate 105 /min Respiratory Rate 18 /min Body Temperature 98.0 F Weight 165.00 lb Results Description No Information Available Procedures Description No Information Available Medical Devices Description No Information Available Encounters Description No Information Available Assessments Description No Information Available Plan of Treatment No Information Available Functional Status Description No Information Available Mental Status Description No Information Available Referrals Description No Information Available
--- OUTSIDE RECORDS SUMMARY | 2020-10-05 10:51 | CCD | Continuity of Care Document ---
Author Author Maverick BIRD M.D. Organization Unknown Address [address] [place] [address] Phone [phone] Problems Description No Information Available Social History Type Date Description Comments Sex Unknown Allergies, Adverse Reactions, Alerts Description No Known Drug Allergies Medications Active Medications SIG Qnty Indications Ordering Provide r Date Acamprosate Calcium 333mg Tablets DR 2 tabs po tid 90tabs Erick Bird M.D. 07/14/[address] by mouth daily 30caps Erick Bird M.D. 07/14/2020 Meloxicam 15mg Tablets 1 by mouth every day 90tabs Erick Bird M.D. 07/14/2020 Anoro Ellipta 62.5-25mcg/Inh Aeros ol 1 puff by mouth daily 2units Erick Bird M.D. 07/14/20 20 Fluticasone Propionate 50mcg/Act Suspension 1 spray per nostril twice a day 16gm Sarah Bird M.D. 07/14/2020 Immunizations Description No Information Available Vital Signs [...]
--- OUTSIDE RECORDS SUMMARY | 2020-10-05 10:51 | CCD | Continuity of Care Document ---
Author Author Maverick BIRD M.D. Organization Unknown Address [address] [place] [address] Phone [phone] Problems Description No Information Available Social History [...]
--- OUTSIDE RECORDS SUMMARY | 2020-10-05 10:52 | CCD | Continuity of Care Document ---
Author Author Maverick MCCARTY M.D. Organization Unknown Address [address] [place] [address] Phone [phone] Problems Description No Information Available Social History Type Date Description Comments Sex Unknown Allergies, Adverse Reactions, Alerts Description No Information Available Medications Description No Information Available Immunizations Description No Information Available Vital Signs Description No Information Available Results Description No Information Available Procedures Description No Information Available Medical Devices Description No Information Available Encounters Description No Information Available Assessments Description No Information Available Plan of Treatment No Information Available Functional Status Description No Information Available Mental Status Description No Information Available Referrals Description No Information Available
--- OUTSIDE RECORDS SUMMARY | 2020-10-05 10:53 | CCD ---
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 12:00:00 AM [facility] Individual Counseling for Substance Abuse Treatment, C ognitive-Behavioral INDIV [employer] FINISHER FOR SUBSTANCE ABUSE, COGNITIVE BEHAVIORAL 07/01/2020 12:00:00 AM [facility] Detoxification Services for Substance Abuse Treatment DETOXIFICATION SERVICES FOR SUBSTANCE ABUSE TREATMENT 07/01/2020 12:00:00 AM [facility] ESTABILISHED PATIENT [facility] FAC[facility] CHARGE 020 12:00:00 AM EST eCW1 ([facility]) Group Counseling for Substance Abuse Treatment, Cognit ulysses-Behavioral GROUP [employer] FINISHER FOR SUBSTANCE ABUSE, COGNITIVE BEHAVIORAL 10/28/2019 12:00:00 AM [facility] Results ID Date Data Source [id number] 07/06/2020 07:35:00 AM [facility] Name Value Range Interpretation Code Description Data Ana rce(s) Supporting Document(s) Sodium 138 mmol/L 136-145 Normal (applies to non-numeric resul ts) [facility] Potassium 3.5-5.1 Normal (applies to non-numeric resul ts) [facility] Chloride 103 mmol/L 98-107 Normal (applies to non-numeric resul ts) [facility] Carbon Dioxide CO2 21-32 Normal (applies to non-numer ic results) [facility] Anion Gap 5.0-16.0 Normal (applies to non-numeric resul ts) [facility] BUN 14 mg/dL 7-18 Normal (applies to non-numeric results) [facility] Creatinine,Serum 0.8-1.5 Below low normal [facility] GFR >60 Normal (applies to non-numeric results) [facility] Glucose Level 98 mg/dL 60-99 Normal (applies to non-numeric re sults) [facility] Reference range is only applicable when patient is fasting Note the following drug interference: Sulfasalazine Sulfapyridine Can see falsely depressed Can see falsely elevated result with up to 17% results with up to 11% decrease in measurement increase in measurement Recommend patients be collected for this test prior to administration of either drug. Calcium 8.5-10.1 Normal (applies to non-numeric resul ts) [facility] ID Date Data Source [id number] 07/06/2020 07:36:00 AM EDT [facility] Name Value Range Interpretation Code Description Data Ana rce(s) Supporting Document(s) Magnesium 1.8-2.4 Normal (applies to non-numeric resul ts) [facility] ID Date Data Source [id number] 07/02/2020 08:43:00 AM EDT [facility] Name Value Range Interpretation Code Description Data Ana rce(s) Supporting Document(s) Sodium 135 mmol/L 136-145 Below low normal [facility] ospital Potassium 3.5-5.1 Normal (applies to non-numeric resul ts) [facility] Chloride 100 mmol/L 98-107 Normal (applies to non-numeric resul ts) [facility] Carbon Dioxide CO2 21-32 Normal (applies to non-numer ic results) [facility] Anion Gap 5.0-16.0 Normal (applies to non-numeric resul ts) [facility] BUN 6 mg/dL 7-18 Below low normal [facility] Creatinine,Serum 0.8-1.5 Below low normal [facility] GFR >60 Normal (applies to non-numeric results) [facility] Glucose Level 101 mg/dL 60-99 Above high normal [facility] Reference range is only applicable when patient is fasting Note the following drug interference: Sulfasalazine Sulfapyridine Can see falsely depressed Can see falsely elevated result with up to 17% results with up to 11% decrease in measurement increase in measurement Recommend patients be collected for this test prior to administration of either drug. Calcium 8.5-10.1 Normal (applies to non-numeric resul ts) [facility] ID Date Data Source [id number] 07/04/2020 02:42:00 PM EDT [facility] Name Value Range Interpretation Code Description Data Ana rce(s) Supporting Document(s) Chlamydia,Urine Negative Normal (applies to non-numeric results) [facility] Test Performed By: [facility] [address] [place] [address] Director: Ana María Smith MD . GC Urine Negative Normal (applies to non-numeric resul ts) [facility] Test Performed By: [facility] [address] [place] [address] Director: Ana María Smith MD . Methodology: Second generation nucleic acid amplification. ID Date Data Source [id number] 07/04/2020 11:40:00 AM EDT [facility] Name Value Range Interpretation Code Description Data Ana rce(s) Supporting Document(s) Hepatitis A Ab,IgG result Normal (applies to no n-numeric results) [facility] Result indicates no past exposure or imm unity to hepatitis A infection. REFERENCE VALUE Unvaccinated: Negative Vaccinated: Positive Test Performed by: [place] [address] Stove Fitter: Luis Alfredo Beck M.D. Ph.D.; CLIA# [id number] ID Date Data Source [id number] 07/04/2020 10:11:00 AM EDT [facility] Value Range Interpretation Code Description Data Ana e(s) Supporting Document(s) Hepatitis A Ab,IgG result Normal (applies to no n-numeric results) [facility] Result indicates no past exposure or imm unity to hepatitis A infection. REFERENCE VALUE Unvaccinated: Negative Vaccinated: Positive Test Performed by: [place] [address] Stove Fitter: Luis Alfredo Beck M.D. Ph.D.; CLIA# [id number] ID Date Data Source [id number] 07/01/2020 01:58:00 PM EDT [facility] Name Value Range Interpretation Code Description Data Ana rce(s) Supporting Document(s) Sodium 130 mmol/L 136-145 Below low normal [facility] ospital Potassium 3.5-5.1 Below low normal [facility] spital Chloride 95 mmol/L 98-107 Below low normal [facility] spital Carbon Dioxide CO2 21-32 Normal (applies to non-numer ic results) [facility] Anion Gap 5.0-16.0 Normal (applies to non-numeric resul ts) [facility] BUN 3 mg/dL 7-18 Below low normal [facility] spital Creatinine,Serum 0.8-1.5 Below low normal [facility] GFR >60 Normal (applies to non-numeric results) [facility] Glucose Level 119 mg/dL 60-99 Above high normal [facility] Reference range is only applicable when patient is fasting Note the following drug interference: Sulfasalazine Sulfapyridine Can see falsely depressed Can see falsely elevated result with up to 17% results with up to 11% decrease in measurement increase in measurement Recommend patients be collected for this test prior to administration of either drug. Calcium 8.5-10.1 Normal (applies to non-numeric resul ts) [facility] Bilirubin,Total 0.1-1.9 Normal (applies to non-numeric results) [facility] SGOT(AST) 63 U/L 15-37 Above high normal [facility] ospital Note the following drug interference: Sulfasalazine Sulfapyridine Can see falsely depressed Can see falsely elevated result with up to 10% results with up to 10% decrease in measurement increase in measurement Recommend patients be collected for this test prior to administration of either drug. SGPT(ALT) 51 U/L 12-78 Normal (applies to non-numeric resul ts) [facility] Note the following drug interference: Sulfasalazine Sulfapyridine Can see falsely depressed Can see falsely elevated result with up to 29% results with up to 10% decrease in measurement increase in measurement Recommend patients be collected for this test prior to administration of either drug. Alkaline Phosphatase 70 U/L 38-126 Normal (applies to non-num young results) [facility] can increase Alkaline Phosp le vels up to 2 times the normal adult value. Normal values for children and adolescents are 2 to 3 times the normal adult value. Total Protein 6.0-8.2 Normal (applies to non-numeric re sults) [facility] Albumin Level 3.4-5.0 Normal (applies to non-numeric re sults) [facility] ID Date Data Source [id number] 07/01/2020 01:58:00 PM EDT [facility] Name Value Range Interpretation Code Description Data Ana rce(s) Supporting Document(s) Magnesium 1.8-2.4 Below low normal [facility] spital ID Date Data Source [id number] 07/01/2020 01:58:00 PM EDT [facility] Value Range Interpretation Code Description Data Ana rce(s) Supporting Document(s) Phosphorus 2.5-4.9 Normal (applies to non-numeric resul ts) [facility] ID Date Data Source [id number] 07/01/2020 01:58:00 PM EDT [facility] Name Value Range Interpretation Code Description Data Ana rce(s) Supporting Document(s) Thyroid Stimulate Hormone TSH 0.358-3.74 No rmal (applies to non-numeric results) [facility] ID Date Data Source [id number] 07/01/2020 01:58:00 PM EDT [facility] Value Range Interpretation Code Description Data Ana rce(s) Supporting Document(s) Bilirubin,Direct 0.05-0.20 Normal (applies to non-numeric results) [facility] ID Date Data Source [id number] 07/01/2020 06:13:00 PM EDT [facility] Value Range Interpretation Code Description Data Ana rce(s) Supporting Document(s) CPK result 116 U/L 39-308 Normal (applies to non-numeric resul ts) [facility] Test Performed By: [facility] [address] [place] [address] Director: Ana María Smith MD ID Date Data Source [id number] 07/01/2020 05:10:00 PM EDT [facility] Name Value Range Interpretation Code Description Data Ana rce(s) Supporting Document(s) CPK 116 U/L 39-308 Normal (applies to non-numeric resul ts) [facility] Test Performed By: [facility] [address] [place] [address] Director: Ana María Smith MD ID Date Data Source [id number] 07/01/2020 01:52:00 PM EDT [facility] Name Value Range Interpretation Code Description Data Ana rce(s) Supporting Document(s) Ethanol Less than 10.0 Above high normal [facility] ID Date Data Source [id number] 07/01/2020 01:51:00 PM EDT [facility] Name Value Range Interpretation Code Description Data Ana rce(s) Supporting Document(s) White Blood Count 3.5-10.5 Normal (applies to non-numeri c results) [facility] Red Blood Count 4.30-5.70 Normal (applies to non-numeric results) [facility] Hemoglobin 13.5-17.5 Normal (applies to non-numeric resul ts) [facility] Hematocrit 38.8-50.0 Normal (applies to non-numeric resul ts) [facility] Mean Corpuscular Volume 81.2-95.1 Normal (applies to non- numeric results) [facility] Mean Corpuscular Hgb 25.6-32.[address] [facility] Mean Corpuscular Hgb Conc 32.0-36.0 Normal (applies to no n-numeric results) [facility] Red Cell Distribution Width 11.8-15.6 Normal (appli es to non-numeric results) [facility] Platelet Count 198 x10 3/uL 150-450 Normal (applies to non-numeric results) [facility] Mean Platelet Volume 9.4-12.4 Below low normal [facility] Neutrophils% (Auto) 31.0-71.0 Normal (applies to non-nume ava results) [facility] Lymphocytes% (Auto) 20.0-55.0 Normal (applies to non-nume ava results) [facility] Monocytes% (Auto) 4.0-12.0 Normal (applies to non-numeri c results) [facility] Eosinophils% (Auto) 1.0-8.0 Normal (applies to non-nume ava results) [facility] Basophils% (Auto) 0.0-2.0 Normal (applies to non-numeri c results) [facility] Immature Granulocytes% (Auto) 0.0-2.0 Normal (tong lies to non-numeric results) [facility] Neutrophils# (Auto) 1.50-6.20 Normal (applies to non-nume ava results) [facility] Lymphocytes# (Auto) 1.20-4.00 Normal (applies to non-nume ava results) [facility] Monocytes# (Auto) 0.00-0.90 Normal (applies to non-numeri c results) [facility] Eosinophils# (Auto) 0.00-0.50 Normal (applies to non-nume ava results) [facility] Basophils# (Auto) 0.00-0.20 Normal (applies to non-numeri c results) [facility] Immature Granulocytes# (Auto) 0.00-7.00 No rmal (applies to non-numeric results) [facility] ID Date Data Source [id number] 07/04/2020 03:30:[address] [facility] Name Value Range Interpretation Code Description Data Ana rce(s) Supporting Document(s) Chlamydia,Urine result Negative Normal (applies to non-n umeric results) [facility] Test [facility] By: [facility] [address] [place] [address] Director: Ana María Smith MD . GC Urine result Negative Normal (applies to non-numeric results) [facility] Test Performed By: [facility] [address] [place] [address] Director: Ana María Smith MD . Methodology: Second generation nucleic acid amplification. ID Date Data Source [id number] 07/01/2020 01:53:00 PM EDT [facility] Name Value Range Interpretation Code Description Data Ana rce(s) Supporting Document(s) UDS Phencyclidine Screen Negative Normal (applies to non -numeric results) [facility] UDS Benzodiazepines Screen Negative Normal (applies to n on-numeric results) [facility] UDS Cocaine Screen Negative Normal (applies to non-numer ic results) [facility] UDS Ampetamine Screen Negative Normal (applies to non-nu meric results) [facility] UDS Cannabinoids Screen Negative [facility] UDS Opiates Screen Negative Normal (applies to non-numer ic results) [facility] UDS Barbiturates Screen Negative Normal (applies to non- numeric results) [facility] UDS Tricyclic Screen Negative Normal (applies to non-num young results) [facility] Therapeutic Drug Ranges for Emergency Threshold Levels (ng/mL) PCP 25 Benzodiazepine 300 Cocaine 300 Amphetamines 1000 Cannabinoids 50 Opiates 300 Barbiturates 300 Tricyclic(TCA) 1000 Emergency toxicology analytes exceeding the therapeutic threshold levels are positive. Positive findings are unconfirmed. Positive drug levels may be confirmed at the request of the ordering provider. Results are to be used for medical treatment purposes only. ID Date Data Source [id number] 07/01/2020 01:35:00 PM T [facility] Collected By: Academic Physician Name Value Range Interpretation Code Description Data Ana rce(s) Supporting Document(s) Color,Urine Colorl-Dk Y Normal (applies to non-numeric res ults) [facility] Clarity,Urine Clear Normal (applies to non-numeric re sults) [facility] Specific [place],Urine 1.005-1.030 Normal (applies to non- numeric results) [facility] pH,Urine 5.0-8.0 Normal (applies to non-numeric resul ts) [facility] Protein,Urine Negative Normal (applies to non-numeric re sults) [facility] Glucose,Urine Negative Normal (applies to non-numeric re sults) [facility] Ketones,Urine Negative Normal (applies to non-numeric re sults) [facility] Blood,Urine Negative Normal (applies to non-numeric resu lts) [facility] Bilirubin,Urine Negative Normal (applies to non-numeric results) [facility] Urobilinogen,Urine 0.2-1.0 Normal (applies to non-numer ic results) [facility] Leukocyte Esterase,Urine Negative Normal (applies to non -numeric results) [facility] Nitrite,Urine Negative Normal (applies to non-numeric re sults) [facility] ID Date Data Source [id number] 03/05/2020 11:23:00 AM EDT [facility] Imaging Services Department Imaging Report [address], [place] [address] %(RAD)RES..mtdd.print.filter("line") Name: SIVA BENJAMIN : 1955 Age/Sex: 64M Ordering Provider: Ja Givens MD Med Rec #: [id number] Reg Status: DIS IN Room #: 125-1 Date of Service: 03/04/20 Report Number: [id number] cc:Ja Givens MD; PCP None Send Report To: [id number] XRP/XR C Spine w Flex and Ext Reason for exam: Neck pain FINDINGS: Prior anterior fusion at C5/7. No instrumentation complication. Mild degenerative retrolisthesis on C3 on C4 demonstrates minimal instability, return to neutral position during flexion. No other sites of instability. Moderate narrowing of the superior C3/4 disc space with angio osteophytes at C4/5. No significant compromise. IMPRESSION: Prior C5-C7 fusion with moderate degenerative disc disease. Minimal sagittal instability at C3/4. Time portable performed: Fluoroscopy time in seconds: Number of Exposures: Contrast Agent in ml: Method of Administration: REPORT SIGNATURE ON FILE Reported By: Diaz Llamas MD <Electronically signed by Diaz Llamas MD> 03/06/20 0906 Dictation Date/Time: 03/04/20 1112 Transcribed Date/Time: 03/05/20 1123 Oyster Farmer: LARRYJAY JAY Name Value Range Interpretation Code Description Data Ana rce(s) Supporting Document(s) ID Date Data Source [id number] 03/05/2020 11:26:00 AM EDT [facility] Imaging Services Department Imaging Report [address], [place] [address] %(RAD)RES..mtdd.print.filter("line") Name: SIVA BENJAMIN : 1955 Age/Sex: 64M Ordering Provider: Ja Givens MD Med Rec #: [id number] Reg Status: DIS IN Room #: 125-1 Date of Service: 03/04/20 Report Number: [id number] cc:Ja Givens MD; PCP None Send Report To: [id number] XRP/XR T Spine 3 View Reason for exam: Pleuritic chest pain FINDINGS: Thoracic spine alignment is within normal limits. Mild superior endplate concavities mid thoracic vertebral bodies, could well be degenerative in nature. T4 through T6 are involved. Osteoporosis is present. No definite compression fracture and no evidence of acute compression fracture. Mild degenerative findings. IMPRESSION: 1. No acute abnormality. 2. Mild degenerative disc disease. 3. T4 through T6 superior endplate concavities are nonspecific. Time portable performed: Fluoroscopy time in seconds: Number of Exposures: Contrast Agent in ml: Method of Administration: REPORT SIGNATURE ON FILE Reported By: Diaz Llamas MD <Electronically signed by Diaz Llamas MD> 03/06/20 0906 Dictation Date/Time: 03/04/20 1116 Transcribed Date/Time: 03/05/20 1126 Oyster Farmer: HIEN Name Value Range Interpretation Code Description Data Ana rce(s) Supporting Document(s) ID Date Data Source [id number] 03/04/2020 02:28:00 PM EDT [facility] Imaging Services Department Imaging Report [address], [place] [address] %(RAD)RES..mtdd.print.filter("line") Name: SIVA BENJAMIN : 1955 Age/Sex: 64M Ordering Provider: Ja Givens MD Med Rec #: [id number] Reg Status: DIS IN Room #: 125-1 Date of Service: 03/03/20 Report Number: [id number] cc:Ja Givens MD; PCP None Send Report To: [id number] XRP/XR Chest 2 View [Pa & Lat] Reason for exam: cough FINDINGS: There is no evidence of acute consolidation or congestive heart failure. The lungs are hyperexpanded bilaterally. There is mild bibasilar subsegmental atelectasis and/or pleural parenchymal scarring. The heart is not enlarged. There is no hilar adenopathy. The aorta is slightly calcified. There are no pleural effusions. The bones are demineralized with mild degenerative changes. Slight demineralization with fixation hardware projecting over the lower cervicals pine. IMPRESSION: No evidence of significant acute pulmonary disease. Time portable performed: Fluoroscopy time in seconds: Number of Exposures: Contrast Agent in ml: Method of Administration: REPORT SIGNATURE ON FILE Reported By: Fadi Farris MD <Electronically signed by Fadi Farris MD> 03/06/20 0909 Dictation Date/Time: 03/03/20 1537 Transcribed Date/Time: 03/04/20 1428 Oyster Farmer: HIEN Name Value Range Interpretation Code Description Data Ana rce(s) Supporting Document(s) ID Date Data Source [id number] 03/02/2020 08:09:00 AM EDT [facility] Name Value Range Interpretation Code Description Data Ana rce(s) Supporting Document(s) Bilirubin,Total 0.1-1.9 Normal (applies to non-numeric results) [facility] Bilirubin,Direct 0.05-0.20 Normal (applies to non-numeric results) [facility] SGOT(AST) 63 U/L 15-37 Above high normal [facility] ospital Note the following drug interference: Sulfasalazine Sulfapyridine Can see falsely depressed Can see falsely elevated result with up to 10% results with up to 10% decrease in measurement increase in measurement Recommend patients be collected for this test prior to administration of either drug. SGPT(ALT) 91 U/L 12-78 Above high normal [facility] ospital Note the following drug interference: Sulfasalazine Sulfapyridine Can see falsely depressed Can see falsely elevated result with up to 29% results with up to 10% decrease in measurement increase in measurement Recommend patients be collected for this test prior to administration of either drug. Alkaline Phosphatase 80 U/L 38-126 Normal (applies to non-num young results) [facility] can increase Alkaline Phosp le vels up to 2 times the normal adult value. Normal values for children and adolescents are 2 to 3 times the normal adult value. Total Protein 6.0-8.2 Normal (applies to non-numeric re sults) [facility] Albumin Level 3.4-5.0 Normal (applies to non-numeric re sults) [facility] ID Date Data Source [id number] 03/02/2020 08:09:00 AM EDT [facility] Name Value Range Interpretation Code Description Data Ana rce(s) Supporting Document(s) Magnesium 1.8-2.4 Normal (applies to non-numeric resul ts) [facility] ID Date Data Source [id number] 03/02/2020 08:09:00 AM EDT [facility] Name Value Range Interpretation Code Description Data Ana rce(s) Supporting Document(s) Sodium 136 mmol/L 136-145 Normal (applies to non-numeric resul ts) [facility] Potassium 3.5-5.1 Normal (applies to non-numeric resul ts) [facility] Chloride 99 mmol/L 98-107 Normal (applies to non-numeric resul ts) [facility] Carbon Dioxide CO2 21-32 Normal (applies to non-numer ic results) [facility] Anion Gap 5.0-16.0 Normal (applies to non-numeric resul ts) [facility] BUN 8 mg/dL 7-18 Normal (applies to non-numeric results) [facility] Creatinine,Serum 0.8-1.5 Below low normal [facility] GFR >60 Normal (applies to non-numeric results) [facility] Glucose Level 102 mg/dL 60-99 Above high normal [facility] Reference range is only applicable when patient is fasting Note the following drug interference: Sulfasalazine Sulfapyridine Can see falsely depressed Can see falsely elevated result with up to 17% results with up to 11% decrease in measurement increase in measurement Recommend patients be collected for this test prior to administration of either drug. Calcium 8.5-10.1 Normal (applies to non-numeric resul ts) [facility] ID Date Data Source [id number] 03/02/2020 08:08:00 AM EDT [facility] Name Value Range Interpretation Code Description Data Ana rce(s) Supporting Document(s) Ammonia 18 umol/L 11-32 Normal (applies to non-numeric resul ts) [facility] Note the following drug interference: Sulfasalazine Sulfapyridine Can see falsely elevated Can see falsely depressed result with up to 10% results with up to 19% increase in measurement decrease in measurement Recommend patients be collected for this test prior to administration of either drug. ID Date Data Source [id number] 03/02/2020 07:49:00 AM EDT [facility] Name Value Range Interpretation Code Description Data Ana rce(s) Supporting Document(s) White Blood Count 3.5-10.5 Normal (applies to non-numeri c results) [facility] Red Blood Count 4.30-5.70 Normal (applies to non-numeric results) [facility] Hemoglobin 13.5-17.5 Normal (applies to non-numeric resul ts) [facility] Hematocrit 38.8-50.0 Normal (applies to non-numeric resul ts) [facility] Mean Corpuscular Volume 81.2-95.1 Normal (applies to non- numeric results) [facility] Mean Corpuscular Hgb 25.6-32.2 Normal (applies to non-num young results) [facility] Mean Corpuscular Hgb Conc 32.0-36.0 Normal (applies to no n-numeric results) [facility] Red Cell Distribution Width 11.8-15.6 Normal (appli es to non-numeric results) [facility] Platelet Count 146 x10 3/uL 150-450 Below low normal [facility] Mean Platelet Volume 9.4-12.4 Normal (applies to non-num young results) [facility] Neutrophils% (Auto) 31.0-71.0 Normal (applies to non-nume ava results) [facility] Lymphocytes% (Auto) 20.0-55.0 Normal (applies to non-nume ava results) [facility] Monocytes% (Auto) 4.0-12.0 Above high normal [facility] Eosinophils% (Auto) 1.0-8.0 Normal (applies to non-nume ava results) [facility] Basophils% (Auto) 0.0-2.0 Normal (applies to non-numeri c results) [facility] Immature Granulocytes% (Auto) 0.0-2.0 Normal (tong lies to non-numeric results) [facility] Neutrophils# (Auto) 1.50-6.20 Normal (applies to non-nume ava results) [facility] Lymphocytes# (Auto) 1.20-4.00 Below low normal [facility] Monocytes# (Auto) 0.00-0.90 Normal (applies to non-numeri c results) [facility] Eosinophils# (Auto) 0.00-0.50 Normal (applies to non-nume ava results) [facility] Basophils# (Auto) 0.00-0.20 Normal (applies to non-numeri c results) [facility] Immature Granulocytes# (Auto) 0.00-7.00 No rmal (applies to non-numeric results) [facility] ID Date Data Source [id number] 03/03/2020 07:02:00 PM EDT [facility] Name Value Range Interpretation Code Description Data [facility] rce(s) Supporting Document(s) Hepatitis A Ab,IgG result Normal (applies to no n-numeric results) [facility] Result indicates no past exposure or imm unity to hepatitis A infection. REFERENCE VALUE Unvaccinated: Negative Vaccinated: Positive Test Performed by: [place] [address] Stove Fitter: Luis Alfredo Beck M.D. Ph.D.; CLIA# [id number] ID Date Data Source [id number] 03/03/2020 06:31:00 PM EDT [facility] Name Value Range Interpretation Code Description Data [facility] rce(s) Supporting Document(s) Hepatitis A Ab,IgG result Normal (applies to no n-numeric results) [facility] Result indicates no past exposure or imm unity to hepatitis A infection. REFERENCE VALUE Unvaccinated: Negative Vaccinated: Positive Test Performed by: [place] [address] Stove Fitter: Luis Alfredo Beck M.D. Ph.D.; CLIA# [id number] ID Date Data Source [id number] 03/01/2020 10:47:00 PM EDT [facility] Value Range Interpretation Code Description Data Ana rce(s) Supporting Document(s) CPK result 321 U/L 39-308 Wayne [facility] Test Performed By: [facility] [address] [place] [address] Director: Ana María Smith MD ID Date Data Source [id number] 03/01/2020 10:47:00 PM EDT [facility] Value Range Interpretation Code Description Data Ana rce(s) Supporting Document(s) Hepatitis C Virus Ab result Nonreactive Very abnormal (applies to non-numeric units [facility] Test Performed By: [place] [address] Director: Ana María Smith MD Results called 03/01/202240, WOO IRAHETA read back information to Sherry Khan THIS IS A STATE REPORTABLE COMMUNICABLE DISEASE. MAYO read back critical information 03/01/207 ASYA Note: This patient's sample tests reactive with a high Index >/= 11.00. Samples with high indexes have been shown to repeat positive using a different methodology 95% of the time or greater but <5 of every 100 samples might be false positives. Additional testing for verification of the result can be requested by the physician if necessary. ([facility] MMWR No RR-3. 2003). ID Date Data Source [id number] 03/01/2020 10:47:00 PM T [facility] Value Range Interpretation Code Description Data Ana rce(s) Supporting Document(s) Hep Bs Ag result T-Test Nonreactive Normal (applies to non -numeric results) [facility] Test Performed By: [facility] [address] [place] [address] Director: Ana María Smith MD ID Date Data Source [id number] 03/01/2020 10:47:00 PM T [facility] Value Range Interpretation Code Description Data Ana rce(s) Supporting Document(s) Syphilis Serology result Nonreactive Normal (applies to non-numeric results) [facility] Test Performed By: [facility] [address] [place] [address] Director: Ana María Smith MD ID Date Data Source [id number] 03/01/2020 10:44:00 PM EDT [facility] Test Performed By: [facility] [address] [place] [address] Director: Ana María Smith MD Test Performed By: [facility] [address] [place] [address] Director: Ana María Smith MD Name Value Range Interpretation Code Description Data Ana rce(s) Supporting Document(s) Hep C Ab-T Test Nonreactive [facility] Test Performed By: [place] [address] Director: Ana María Smith MD Results called 03/01/20 2241, WOO MYRTLE read back information to Sherry Khan THIS IS A STATE REPORTABLE COMMUNICABLE DISEASE. Note: This patient's sample tests reactive with a high Index >/= 11.00. Samples with high indexes have been shown to repeat positive using a different methodology 95% of the time or greater but <5 of every 100 samples might be false positives. Additional testing for verification of the result can be requested by the physician if necessary. ([facility] MMWR No RR-3. 2003). ID Date Data Source [id number] 03/01/2020 10:44:00 PM EDT [facility] Test Performed By: [facility] [address] [place] [address] Director: Ana María Smith MD Test Performed By: [place] [address] Director: Ana María Smith MD Name Value Range Interpretation Code Description Data Ana rce(s) Supporting Document(s) ID Date Data Source [id number] 03/01/2020 10:44:00 PM EDT [facility] Test Performed By: [facility] [address] [place] [address] Director: Ana María Smith MD Test Performed By: [facility] [address] [place] [address] Director: Ana María Smith MD Name Value Range Interpretation Code Description Data Ana rce(s) Supporting Document(s) ID Date Data Source [id number] 03/01/2020 09:59:00 PM EDT [facility] Name Value Range Interpretation Code Description Data Ana rce(s) Supporting Document(s) CPK 321 U/L 39-308 Above high normal [facility] Test Performed By: [facility] [address] [place] [address] Director: Ana María Smith MD ID Date Data Source [id number] 03/01/2020 04:30:00 PM EDT [facility] Name Value Range Interpretation Code Description Data Ana rce(s) Supporting Document(s) Sodium 129 mmol/L 136-145 Below low normal [facility] Potassium 3.5-5.1 Below low normal [facility] spital Chloride 93 mmol/L 98-107 Below low normal [facility] sp[facility] Carbon Dioxide CO2 21-32 Normal (applies to non-numer ic results) [facility] Anion Gap 5.0-16.0 Normal (applies to non-numeric resul ts) [facility] BUN 6 mg/dL 7-18 Below low normal [facility] spital Creatinine,Serum 0.8-1.5 Below low normal [facility] GFR >60 Normal (applies to non-numeric results) [facility] Glucose Level 108 mg/dL 60-99 Above high normal [facility] Reference range is only applicable when patient is fasting Note the following drug interference: Sulfasalazine Sulfapyridine Can see falsely depressed Can see falsely elevated result with up to 17% results with up to 11% decrease in measurement increase in measurement Recommend patients be collected for this test prior to administration of either drug. Calcium 8.5-10.1 Normal (applies to non-numeric resul ts) [facility] Bilirubin,Total 0.1-1.9 Normal (applies to non-numeric results) [facility] SGOT(AST) 88 U/L 15-37 Above high normal [facility] Note the following drug interference: Sulfasalazine Sulfapyridine Can see falsely depressed Can see falsely elevated result with up to 10% results with up to 10% decrease in measurement increase in measurement Recommend patients be collected for this test prior to administration of either drug. SGPT(ALT) 115 U/L 12-78 Above high normal [facility] Note the following drug interference: Sulfasalazine Sulfapyridine Can see falsely depressed Can see falsely elevated result with up to 29% results with up to 10% decrease in measurement increase in measurement Recommend patients be collected for this test prior to administration of either drug. Alkaline Phosphatase 72 U/L 38-126 Normal (applies to non-num young results) [facility] can increase Alkaline Phosp le vels up to 2 times the normal adult value. Normal values for children and adolescents are 2 to 3 times the normal adult value. Total Protein 6.0-8.2 Normal (applies to non-numeric re sults) [facility] Albumin Level 3.4-5.0 Normal (applies to non-numeric re sults) [facility] ID Date Data Source [id number] 03/01/2020 04:30:00 PM [facility] Value Range Interpretation Code Description Data Ana rce(s) Supporting Document(s) Bilirubin,Direct 0.05-0.20 Normal (applies to non-numeric results) [facility] ID Date Data Source [id number] 03/01/2020 04:30:00 PM T [facility] Value Range Interpretation Code Description Data Ana rce(s) Supporting Document(s) Phosphorus 2.5-4.9 Normal (applies to non-numeric resul ts) [facility] ID Date Data Source [id number] 03/01/2020 04:30:00 PM [facility] Value Range Interpretation Code Description Data Ana rce(s) Supporting Document(s) Magnesium 1.8-2.4 Below low normal [facility] ID Date Data Source [id number] 03/01/2020 04:30:00 PM EDT [facility] Name Value Range Interpretation Code Description Data Ana rce(s) Supporting Document(s) Thyroid Stimulate Hormone TSH 0.358-3.74 No rmal (applies to non-numeric results) [facility] ID Date Data Source [id number] 03/01/2020 04:11:00 PM EDT [facility] Name Value Range Interpretation Code Description Data Ana rce(s) Supporting Document(s) Ethanol Less than 10.0 Above high normal [facility] ID Date Data Source [id number] 03/01/2020 03:56:00 PM EDT [facility] Name Value Range Interpretation Code Description Data Ana rce(s) Supporting Document(s) White Blood Count 3.5-10.5 Normal (applies to non-numeri c results) [facility] Red Blood Count 4.30-5.70 Normal (applies to non-numeric results) [facility] Hemoglobin 13.5-17.5 Normal (applies to non-numeric resul ts) [facility] Hematocrit 38.8-50.0 Normal (applies to non-numeric resul ts) [facility] Mean Corpuscular Volume 81.2-95.1 Normal (applies to non- numeric results) [facility] Mean Corpuscular Hgb 25.6-32.[address] [facility] Mean Corpuscular Hgb Conc 32.0-36.0 Normal (applies to no n-numeric results) [facility] Red Cell Distribution Width 11.8-15.6 Normal (appli es to non-numeric results) [facility] Platelet Count 151 x10 3/uL 150-450 Normal (applies to non-numeric results) [facility] Mean Platelet Volume 9.4-12.4 Normal (applies to non-num young results) [facility] Neutrophils% (Auto) 31.0-71.0 Normal (applies to non-nume ava results) [facility] Lymphocytes% (Auto) 20.0-55.0 Normal (applies to non-nume ava results) [facility] Monocytes% (Auto) 4.0-12.0 Normal (applies to non-numeri c results) [facility] Eosinophils% (Auto) 1.0-8.0 Normal (applies to non-nume ava results) [facility] Basophils% (Auto) 0.0-2.0 Normal (applies to non-numeri c results) [facility] Immature Granulocytes% (Auto) 0.0-2.0 Normal (tong lies to non-numeric results) [facility] Neutrophils# (Auto) 1.50-6.20 Normal (applies to non-nume ava results) [facility] Lymphocytes# (Auto) 1.20-4.00 Normal (applies to non-nume ava results) [facility] Monocytes# (Auto) 0.00-0.90 Normal (applies to non-numeri c results) [facility] Eosinophils# (Auto) 0.00-0.50 Normal (applies to non-nume ava results) [facility] Basophils# (Auto) 0.00-0.20 Normal (applies to non-numeri c results) [facility] Immature Granulocytes# (Auto) 0.00-7.00 No rmal (applies to non-numeric results) [facility] ID Date Data Source [id number] 03/03/2020 04:17:00 PM EDT [facility] Name Value Range Interpretation Code Description Data Ana rce(s) Supporting Document(s) Chlamydia,Urine result Negative Normal (applies to non-n umeric results) [facility] Test Performed By: [facility] [address] [place] [address] Director: Ana María Smith MD . GC Urine result Negative Normal (applies to non-numeric results) [facility] Test Performed By: [facility] [address] [place] [address] Director: Ana María Smith MD . Methodology: Second generation nucleic acid amplification. ID Date Data Source [id number] 03/03/2020 03:52:00 PM EDT [facility] Name Value Range Interpretation Code Description Data Ana rce(s) Supporting Document(s) Chlamydia,Urine Negative Normal (applies to non-numeric results) [facility] Test Performed By: [facility] [address] [place] [address] Director: Ana María Smith MD . GC Urine Negative Normal (applies to non-numeric resul ts) [facility] Test Performed By: [facility] [address] [place] [address] Director: Ana María Smith MD . Methodology: Second generation nucleic acid amplification. ID Date Data Source [id number] 03/01/2020 03:45:00 PM EDT [facility] Name Value Range Interpretation Code Description Data Ana rce(s) Supporting Document(s) UDS Phencyclidine Screen Negative Normal (applies to non -numeric results) [facility] UDS Benzodiazepines Screen Negative Normal (applies to n on-numeric results) [facility] UDS Cocaine Screen Negative Normal (applies to non-numer ic results) [facility] UDS Ampetamine Screen Negative Normal (applies to non-nu meric results) [facility] UDS Cannabinoids Screen Negative [facility] UDS Opiates Screen Negative Normal (applies to non-numer ic results) [facility] UDS Barbiturates Screen Negative Normal (applies to non- numeric results) [facility] UDS Tricyclic Screen Negative Normal (applies to non-num young results) [facility] Therapeutic Drug Ranges for Emergency Threshold Levels (ng/mL) PCP 25 Benzodiazepine 300 Cocaine 300 Amphetamines 1000 Cannabinoids 50 Opiates 300 Barbiturates 300 Tricyclic(TCA) 1000 Emergency toxicology analytes exceeding the therapeutic threshold levels are positive. Positive findings are unconfirmed. Positive drug levels may be confirmed at the request of the ordering provider. Results are to be used for medical treatment purposes only. ID Date Data Source [id number] 03/01/2020 03:32:00 PM EDT [facility] Collected By: Nurse Name Value Range Interpretation Code Description Data Ana rce(s) Supporting Document(s) Color,Urine Colorl-Dk Y Normal (applies to non-numeric res ults) [facility] Clarity,Urine Clear Normal (applies to non-numeric re sults) [facility] Specific [place],Urine 1.005-1.030 Normal (applies to non- numeric results) [facility] pH,Urine 5.0-8.0 Normal (applies to non-numeric resul ts) [facility] Protein,Urine Negative Normal (applies to non-numeric re sults) [facility] Glucose,Urine Negative Normal (applies to non-numeric re sults) [facility] Ketones,Urine Negative Normal (applies to non-numeric re sults) [facility] Blood,Urine Negative Normal (applies to non-numeric resu lts) [facility] Bilirubin,Urine Negative Normal (applies to non-numeric results) [facility] Urobilinogen,Urine 0.2-1.0 Normal (applies to non-numer ic results) [facility] Leukocyte Esterase,Urine Negative Normal (applies to non -numeric results) [facility] Nitrite,Urine Negative Normal (applies to non-numeric re sults) [facility] ID Date Data Source [id number] 11/02/2019 07:18:00 AM EST [facility] Name Value Range Interpretation Code Description Data Ana rce(s) Supporting Document(s) Sodium 140 mmol/L 136-145 Normal (applies to non-numeric resul ts) [facility] Potassium 3.5-5.1 Normal (applies to non-numeric resul ts) [facility] Chloride 103 mmol/L 98-107 Normal (applies to non-numeric resul ts) [facility] Carbon Dioxide CO2 21-32 Normal (applies to non-numer ic results) [facility] Anion Gap 5.0-16.0 Normal (applies to non-numeric resul ts) [facility] BUN 7 mg/dL 7-18 Normal (applies to non-numeric results) [facility] Creatinine,Serum 0.8-1.5 Below low normal [facility] GFR >60 Normal (applies to non-numeric results) [facility] Glucose Level 96 mg/dL 60-99 Normal (applies to non-numeric re sults) [facility] Reference range is only applicable when patient is fasting Note the following drug interference: Sulfasalazine Sulfapyridine Can see falsely depressed Can see falsely elevated result with up to 17% results with up to 11% decrease in measurement increase in measurement Recommend patients be collected for this test prior to administration of either drug. Calcium 8.5-10.1 Normal (applies to non-numeric resul ts) [facility] ID Date Data Source [id number] 10/31/2019 07:41:00 AM [facility] Name Value Range Interpretation Code Description Data Ana rce(s) Supporting Document(s) Sodium 142 mmol/L 136-145 Normal (applies to non-numeric resul ts) [facility] Potassium 3.5-5.1 Normal (applies to non-numeric resul ts) [facility] Chloride 105 mmol/L 98-107 Normal (applies to non-numeric resul ts) [facility] Carbon Dioxide CO2 21-32 Normal (applies to non-numer ic results) [facility] Anion Gap 5.0-16.0 Normal (applies to non-numeric resul ts) [facility] BUN 6 mg/dL 7-18 Below low normal [facility] Creatinine,Serum 0.8-1.5 Below low normal [facility] GFR >60 Normal (applies to non-numeric results) [facility] [facility] Glucose Level 96 mg/dL 60-99 Normal (applies to non-numeric re sults) [facility] Reference range is only applicable when patient is fasting Note the following drug interference: Sulfasalazine Sulfapyridine Can see falsely depressed Can see falsely elevated result with up to 17% results with up to 11% decrease in measurement increase in measurement Recommend patients be collected for this test prior to administration of either drug. Calcium 8.5-10.1 Normal (applies to non-numeric resul ts) [facility] ID Date Data Source [id number] 10/31/2019 07:41:00 AM EST [facility] Name Value Range Interpretation Code Description Data Ana rce(s) Supporting Document(s) Magnesium 1.8-2.4 Below low normal [facility] spital ID Date Data Source [id number] 10/29/2019 03:17:00 PM [facility] Imaging Services Department Imaging Report [address], [place] [address] %(RAD)RES..mtdd.print.filter("line") Name: SIVA BENJAMIN : 1955 Age/Sex: 64M Ordering Provider: Amaya Bernabe MD Med Rec #: [id number] Reg Status: DIS IN Room #: 123-1 Date of Service: 10/29/19 Report Number: [id number] cc:Amaya Bernabe MD; PCP None Send Report To: [id number] XRP/XR Hand Lt Min 3 Views Reason for exam: hand pain post traumatic arthritis FINDINGS: COMPARISON: No prior studies. VIEWS: AP, lateral and two oblique views. There is deformity of the distal portions of the 4th and 5th metacarpals which is likely to be related to previous trauma. There is mild narrowing of the metacarpal phalangeal joint of the middle finger which could indicate an autoimmune form of arthritis. Mild degenerative disease is seen at the distal intraphalangeal joints. The joint spaces and soft tissues are otherwise unremarkable. IMPRESSION: Evidence of old trauma with residual deformity at the 4th and 5th metacarpals. 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 Time portable performed: Fluoroscopy time in seconds: Number of Exposures: Contrast Agent in ml: Method of Administration: REPORT SIGNATURE ON FILE Reported By: Win Valles MD <Electronically signed by Win Valles MD> 11/02/19 1655 Dictation Date/Time: 10/29/19 1403 Transcribed Date/Time: 10/29/19 1517 Oyster Farmer: KAIDEN Name Value Range Interpretation Code Description Data [facility] Supporting Document(s) ID Date Data Source [id number] 10/28/2019 04:44:00 PM [facility] Collected By: Nurse's Aide Name Value Range Interpretation Code Description Data [facility] Supporting Document(s) Color,Urine Colorl-Dk Y Normal (applies to non-numeric res ults) [facility] Clarity,Urine Clear Normal (applies to non-numeric re sults) [facility] Specific [place],Urine 1.005-1.030 Normal (applies to non- numeric results) [facility] pH,Urine 5.0-8.0 Normal (applies to non-numeric resul ts) [facility] Protein,Urine Negative Normal (applies to non-numeric re sults) [facility] Glucose,Urine Negative Normal (applies to non-numeric re sults) [facility] Ketones,Urine Negative Normal (applies to non-numeric re sults) [facility] Blood,Urine Negative Normal (applies to non-numeric resu lts) [facility] Bilirubin,Urine Negative Normal (applies to non-numeric results) [facility] Urobilinogen,Urine 0.2-1.0 Normal (applies to non-numer ic results) [facility] Leukocyte Esterase,Urine Negative Normal (applies to non -numeric results) [facility] Nitrite,Urine Negative Normal (applies to non-numeric re sults) [facility] ID Date Data Source [id number] 11/01/2019 12:56:00 PM [facility] Name Value Range Interpretation Code Description Data [facility](s) Supporting Document(s) Hepatitis A Ab,IgG result Normal (applies to no n-numeric results) [facility] Result indicates no past exposure or imm unity to hepatitis A infection. REFERENCE VALUE Unvaccinated: Negative Vaccinated: Positive Test Performed by: [place] [address] Stove Fitter: Luis Alfredo Beck M.D. Ph.D.; CLIA# [id number] ID Date Data Source [id number] 11/01/2019 12:31:00 PM EST [facility] Name Value Range Interpretation Code Description Data Ana rce(s) Supporting Document(s) Hepatitis A Ab,IgG result Normal (applies to no n-numeric results) [facility] Result indicates no past exposure or imm unity to hepatitis A infection. REFERENCE VALUE Unvaccinated: Negative Vaccinated: Positive Test Performed by: [place] [address] Stove Fitter: Luis Alfredo Beck M.D. Ph.D.; CLIA# [id number] ID Date Data Source [id number] 10/29/2019 03:18:00 PM [facility] Name Value Range Interpretation Code Description Data Ana rce(s) Supporting Document(s) Hepatitis C Virus Ab result Nonreactive Very abnormal (applies to non-numeric units [facility] Results called 10/28/19 GIACOMO Leroy read back information to [facility] THIS IS A STATE REPORTABLE COMMUNICABLE DISEASE. Note: This patient's sample tests reactive with a high Index >/= 11.00. Samples with high indexes have been shown to repeat positive using a different methodology 95% of the time or greater but <5 of every 100 samples might be false positives. Additional te sting for verification of the result can be requested by the physician if necessary. (CDC MMWR No RR-3. 2003). Test Performed By: [facility] [address] [place] [address] Director: Ana María Smith MD called to [id number] Jose ID Date Data Source [id number] 10/29/2019 03:18:00 PM [facility] Name Value Range Interpretation Code Description Data Ana rce(s) Supporting Document(s) Syphilis Serology result Nonreactive Normal (applies to non-numeric results) [facility] Test Performed By: [facility] [address] [place] [address] Director: Ana María Smith MD ID Date Data Source [id number] 10/29/2019 03:18:00 PM [facility] Value Range Interpretation Code Description Data Ana rce(s) Supporting Document(s) CPK result 144 U/L 39-308 Normal (applies to non-numeric resul ts) [facility] Test Performed By: [place] [address] Director: Ana María Smith MD ID Date Data Source [id number] 10/29/2019 03:18:00 PM [facility] Value Range Interpretation Code Description Data Ana rce(s) Supporting Document(s) Chlamydia,Urine result Negative Normal (applies to non-n umeric results) [facility] Test Performed By: [place] [address] Director: Ana María Smith MD . GC Urine result Negative Normal (applies to non-numeric results) [facility] Test Performed By: [place] [address] Director: Ana María Smith MD . Methodology: Second generation nucleic acid amplification. ID Date Data Source [id number] 10/29/2019 03:18:00 PM [facility] Value Range Interpretation Code Description Data Ana rce(s) Supporting Document(s) Hep Bs Ag result T-Test Nonreactive Normal (applies to non -numeric results) [facility] Test Performed By: [place] [address] Director: Ana María Smith MD ID Date Data Source [id number] 10/29/2019 02:54:00 PM EST [facility] Value Range Interpretation Code Description Data Ana rce(s) Supporting Document(s) Chlamydia,Urine Negative Normal (applies to non-numeric results) [facility] Test Performed By: [facility] [address] [place] [address] Director: Ana María Smith MD . GC Urine Negative Normal (applies to non-numeric resul ts) [facility] Test Performed By: [place] [address] Director: Ana María Smith MD . Methodology: Second generation nucleic acid amplification. ID Date Data Source [id number] 10/28/2019 11:25:00 PM EST [facility] Test Performed By: [place] [address] Director: Ana María Smith MD Test Performed By: [place] [address] Director: Ana María Smith MD Name Value Range Interpretation Code Description Data Ana rce(s) Supporting Document(s) Hep C Ab-T Test Nonreactive [facility] Results called 10/28/19 GIACOMO Leroy read back information to [facility] THIS IS A STATE REPORTABLE COMMUNICABLE DISEASE. Note: This patient's sample tests reactive with a high Index >/= 11.00. Samples with high indexes have been shown to repeat positive using a different methodology 95% of the time or greater but <5 of every 100 samples might be false positives. Additional testing for verification of the result can be requested by the physician if necessary. ([facility] MMWR No RR-3. 2003). Test Performed By: [facility] [address] [place] [address] Director: Ana María Smith MD ID Date Data Source [id number] 10/28/2019 11:25:00 PM EST [facility] Test Performed By: [place] [address] Director: Ana María Smith MD Test Performed By: [place] [address] Director: Ana María Smith MD Name Value Range Interpretation Code Description Data Ana rce(s) Supporting Document(s) ID Date Data Source [id number] 10/28/2019 11:25:00 PM [facility] Test Performed By: [facility] [address] [place] [address] Director: Ana María Smith MD Test Performed By: [facility] [address] [place] [address] Director: Ana María Smith MD Name Value Range Interpretation Code Description Data Ana rce(s) Supporting Document(s) ID Date Data Source [id number] 10/28/2019 10:15:00 PM [facility] Name Value Range Interpretation Code Description Data Ana rce(s) Supporting Document(s) CPK 144 U/L 39-308 Normal (applies to non-numeric resul ts) [facility] Test Performed By: [facility] [address] [place] [address] Director: Ana María Smith MD ID Date Data Source [id number] 10/28/2019 04:48:00 PM [facility] Name Value Range Interpretation Code Description Data Ana rce(s) Supporting Document(s) Ethanol Less than 10.0 Above high normal [facility] ID Date Data Source [id number] 10/28/2019 04:48:00 PM [facility] Name Value Range Interpretation Code Description Data Ana rce(s) Supporting Document(s) Sodium 135 mmol/L 136-145 Below low normal [facility] ospital Potassium 3.5-5.1 Normal (applies to non-numeric resul ts) [facility] Chloride 99 mmol/L 98-107 Normal (applies to non-numeric resul ts) [facility] Carbon Dioxide CO2 21-32 Normal (applies to non-numer ic results) [facility] Anion Gap 5.0-16.0 Normal (applies to non-numeric resul ts) [facility] BUN 5 mg/dL 7-18 Below low normal [facility] spital Creatinine,Serum 0.8-1.5 Below low normal [facility] GFR >60 Normal (applies to non-numeric results) [facility] Glucose Level 117 mg/dL 60-99 Above high normal [facility] Reference range is only applicable when patient is fasting Note the following drug interference: Sulfasalazine Sulfapyridine Can see falsely depressed Can see falsely elevated result with up to 17% results with up to 11% decrease in measurement increase in measurement Recommend patients be collected for this test prior to administration of either drug. Calcium 8.5-10.1 Below low normal [facility] spital Bilirubin,Total 0.1-1.9 Normal (applies to non-numeric results) [facility] SGOT(AST) 32 U/L 15-37 Normal (applies to non-numeric resul ts) [facility] Note the following drug interference: Sulfasalazine Sulfapyridine Can see falsely depressed Can see falsely elevated result with up to 10% results with up to 10% decrease in measurement increase in measurement Recommend patients be collected for this test prior to administration of either drug. SGPT(ALT) 23 U/L 12-78 Normal (applies to non-numeric resul ts) [facility] Note the following drug interference: Sulfasalazine Sulfapyridine Can see falsely depressed Can see falsely elevated result with up to 29% results with up to 10% decrease in measurement increase in measurement Recommend patients be collected for this test prior to administration of either drug. Alkaline Phosphatase 72 U/L 38-126 Normal (applies to non-num young results) [facility] can increase Alkaline Phosp le vels up to 2 times the normal adult value. Normal values for children and adolescents are 2 to 3 times the normal adult value. Total Protein 6.0-8.2 Normal (applies to non-numeric re sults) [facility] Albumin Level 3.4-5.0 Normal (applies to non-numeric re sults) [facility] ID Date Data Source [id number] 10/28/2019 04:48:00 PM [facility] Name Value Range Interpretation Code Description Data Ana rce(s) Supporting Document(s) Bilirubin,Direct 0.05-0.20 Normal (applies to non-numeric results) [facility] ID Date Data Source [id number] 10/28/2019 04:48:00 PM [facility] Name Value Range Interpretation Code Description Data Ana rce(s) Supporting Document(s) Phosphorus 2.5-4.9 Normal (applies to non-numeric resul ts) [facility] ID Date Data Source [id number] 10/28/2019 04:48:00 PM EST [facility] Name Value Range Interpretation Code Description Data Ana rce(s) Supporting Document(s) Magnesium 1.8-2.4 Normal (applies to non-numeric resul ts) [facility] ID Date Data Source [id number] 10/28/2019 04:48:00 PM EST [facility] Name Value Range Interpretation Code Description Data Ana rce(s) Supporting Document(s) Thyroid Stimulate Hormone TSH 0.358-3.74 No rmal (applies to non-numeric results) [facility] ID Date Data Source [id number] 10/28/2019 04:38:00 PM [facility] Name Value Range Interpretation Code Description Data Ana rce(s) Supporting Document(s) White Blood Count 3.5-10.5 Normal (applies to non-numeri c results) [facility] Red Blood Count 4.30-5.70 Normal (applies to non-numeric results) [facility] Hemoglobin 13.5-17.5 Normal (applies to non-numeric resul ts) [facility] Hematocrit 38.8-50.0 Normal (applies to non-numeric resul ts) [facility] Mean Corpuscular Volume 81.2-95.1 Normal (applies to non- numeric results) [facility] Mean Corpuscular Hgb 25.6-32.2 Normal (applies to non-num young results) [facility] Mean Corpuscular Hgb Conc 32.0-36.0 Normal (applies to no n-numeric results) [facility] Red Cell Distribution Width 11.8-15.6 Normal (appli es to non-numeric results) [facility] Platelet Count 208 x10 3/uL 150-450 Normal (applies to non-numeric results) [facility] Mean Platelet Volume 9.4-12.4 Below low normal [facility] Neutrophils% (Auto) 31.0-71.0 Normal (applies to non-nume ava results) [facility] Lymphocytes% (Auto) 20.0-55.0 Normal (applies to non-nume ava results) [facility] Monocytes% (Auto) 4.0-12.0 Normal (applies to non-numeri c results) [facility] Eosinophils% (Auto) 1.0-8.0 Below low normal [facility] Basophils% (Auto) 0.0-2.0 Normal (applies to non-numeri c results) [facility] Immature Granulocytes% (Auto) 0.0-2.0 Normal (tong lies to non-numeric results) [facility] Neutrophils# (Auto) 1.50-6.20 Normal (applies to non-nume ava results) [facility] Lymphocytes# (Auto) 1.20-4.00 Normal (applies to non-nume ava results) [facility] Monocytes# (Auto) 0.00-0.90 Normal (applies to non-numeri c results) [facility] Eosinophils# (Auto) 0.00-0.50 Normal (applies to non-nume ava results) [facility] Basophils# (Auto) 0.00-0.20 Normal (applies to non-numeri c results) [facility] Immature Granulocytes# (Auto) 0.00-7.00 No rmal (applies to non-numeric results) [facility] ID Date Data Source [id number] 10/28/2019 04:25:00 PM EST [facility] Name Value Range Interpretation Code Description Data Ana rce(s) Supporting Document(s) UDS Phencyclidine Screen Negative Normal (applies to non -numeric results) [facility] UDS Benzodiazepines Screen Negative Normal (applies to n on-numeric results) [facility] UDS Cocaine Screen Negative Normal (applies to non-numer ic results) [facility] UDS Ampetamine Screen Negative Normal (applies to non-nu meric results) [facility] UDS Cannabinoids Screen Negative [facility] UDS Opiates Screen Negative Normal (applies to non-numer ic results) [facility] UDS Barbiturates Screen Negative Normal (applies to non- numeric results) [facility] UDS Tricyclic Screen Negative Normal (applies to non-num young results) [facility] Therapeutic Drug Ranges for Emergency Threshold Levels (ng/mL) PCP 25 Benzodiazepine 300 Cocaine 300 Amphetamines 1000 Cannabinoids 50 Opiates 300 Barbiturates 300 Tricyclic(TCA) 1000 Emergency toxicology analytes exceeding the therapeutic threshold levels are positive. Positive findings are unconfirmed. Positive drug levels may be confirmed at the request of the ordering provider. Results are to be used for medical treatment purposes only. Procedure Social History Code Duration Value Status Description Data Source(s ) Smoking 01/20/2020 12:00:00 AM EDT Current Smoker completed Curre nt Smoker eCW1 ([facility]) Smoking 01/20/2020 12:00:00 AM EDT Current Smoker completed Curre nt Smoker eCW1 ([facility]) Smoking 01/20/2020 12:00:00 AM EDT Current Smoker completed Curre nt Smoker eCW1 ([facility]) Vital Signs ID Date Data Source UNK Name Value Range Interpretation Code Description Data Source(s) Body weight 165.00 [lb_av] 165.00 [lb_av] MEDEN T ([facility]) Body temperature 98.0 [degF] 98.0 [degF] MEDENT ([facility]) Respiratory rate 18 /min 18 /min MEDENT ( [facility]) Heart rate 105 /min 105 /min MEDENT ([facility]) Diastolic blood pressure 79 mm[Hg] 79 mm[Hg] MEDENT ([facility]) Systolic blood pressure 126 mm[Hg] 126 mm[Hg] M EDENT ([facility]) Diastolic blood pressure 80 mm[Hg] 80 mm[Hg] eCW1 ([facility]) Systolic blood pressure 140 mm[Hg] 140 mm[Hg] e CW1 ([facility]) Body temperature 97.8 [degF] 97.8 [degF] eCW1 ( [facility]) Respiratory rate 20 /min 20 /min eCW1 ([facility]) Heart rate 131 /min 131 /min eCW1 ([facility]) Body mass index (BMI) [Ratio] 26.25 kg/m2 26.25 kg/m2 eCW1 ([facility]) Body height 70 [in_us] 70 [in_us] eCW1 ([facility] to [facility]) Body weight Measured 183 [lb_av] 183 [lb_av] eC W1 ([facility]) Diastolic blood pressure 78 mm[Hg] 78 mm[Hg] eCW1 ([facility]) Systolic blood pressure 156 mm[Hg] 156 mm[Hg] e CW1 ([facility]) Body temperature 96.3 [degF] 96.3 [degF] eCW1 ( [facility]) Respiratory rate 20 /min 20 /min eCW1 ([facility]) Heart rate 127 /min 127 /min eCW1 ([facility]) Body mass index (BMI) [Ratio] 25.95 kg/m2 25.95 kg/m2 W1 ([facility]) Body height 70 [in_us] 70 [in_us] eCW1 ([facility]ending sale to [facility]) Body weight Measured 180.9 [lb_av] 180.9 [lb_av ] eCW1 ([facility]) ID Date Data Source [id number] 07/04/2020 02:42:00 PM EDT [facility] Name Value Range Interpretation Code Description Data Source(s) Weight (Calculated Kilograms) 76.20 76.20 [facility] Height (Calculated Centimeters) 177.8 177. 8 [facility] Body Mass Index (BMI) 24.0 24.0 [facility] ID Date Data Source [id number] 07/25/2020 07:57:00 AM EST [facility] Name Value Range Interpretation Code Description Data Source(s) Weight (Calculated Kilograms) 77.47 77.47 [facility] Weight 2732.8 2732.8 [facility] pital Temperature Source 7 7 [facility] Temperature 97.4 97.4 [facility] Respiratory Effort 1 1 [facility] Respiratory Rate 18 18 [facility] Pulse Assessment Method 4 4 [facility] Pulse Rate 102 102 [facility] pital Height (Calculated Centimeters) 177.8 177. 8 [facility] Height 70 70 [facility] pital Blood Pressure 139/77 139/77 [facility] Body Mass Index (BMI) 24.5 24.5 [facility] Weight (Calculated Kilograms) 77.47 77.47 [facility] Weight 2732.8 2732.8 [facility] pital Temperature Source 7 7 [facility] Temperature 97.4 97.4 [facility] spital Respiratory Effort 1 1 [facility] Respiratory Rate 18 18 [facility] Pulse Assessment Method 4 4 [facility] Pulse Rate 102 102 [facility] pital Height (Calculated Centimeters) 177.8 177. 8 [facility] Height 70 70 [facility] pital Blood Pressure 139/77 139/77 [facility] Body Mass Index (BMI) 24.5 24.5 [facility] Weight (Calculated Kilograms) 77.47 77.47 [facility] Weight 2732.8 2732.8 [facility] pital Temperature Source 7 7 [facility] Temperature 97.4 97.4 [facility] Respiratory Effort 1 1 [facility] Respiratory Rate 18 18 [facility] Pulse Assessment Method 4 4 [facility] Pulse Rate 102 102 [facility] pital Height (Calculated Centimeters) 177.8 177. 8 [facility] Height 70 70 [facility] pital Blood Pressure 139/77 139/77 [facility] Body Mass Index (BMI) 24.5 24.5 [facility] Weight (Calculated Kilograms) 77.47 77.47 [facility] Weight 2732.8 2732.8 [facility] pital Temperature Source 7 7 [facility] Temperature 97.4 97.4 [facility] Respiratory Effort 1 1 [facility] Respiratory Rate 18 18 [facility] Pulse Assessment Method 4 4 [facility] Pulse Rate 102 102 [facility] pital Height (Calculated Centimeters) 177.8 177. 8 [facility]/77 139/77 [facility] Body Mass Index (BMI) 24.5 24.5 [facility] Weight (Calculated Kilograms) 77.47 77.47 [facility] [facility] Weight 2732.8 2732.8 [facility] pital Temperature Source 7 7 [facility] Temperature 97.7 97.7 [facility] spital Respiratory Effort 1 1 [facility] Respiratory Rate 18 18 [facility] Pulse Assessment Method 4 4 [facility] Pulse Rate 89 89 [facility] pital Height (Calculated Centimeters) 177.8 177. 8 [facility] 159/87 159/87 [facility] Body Mass Index (BMI) 24.5 24.5 [facility] Weight (Calculated Kilograms) 77.47 77.47 [facility] Weight 2732.8 2732.8 [facility] pital Temperature Source 7 7 [facility] Temperature 97 97 [facility] spital Respiratory Effort 1 1 [facility] Respiratory Rate 18 18 [facility] Pulse Assessment Method 4 4 [facility] Pulse Rate 78 78 [facility] pital Height (Calculated Centimeters) 177.8 177. 8 [facility] Height 70 70 [facility] 161/81 161/81 [facility] Body Mass Index (BMI) 24.5 24.5 [facility] Weight (Calculated Kilograms) 79.02 79.02 [facility] Height (Calculated Centimeters) 177.8 177. 8 [facility] Body Mass Index (BMI) 25.0 25.0 [facility] ID Date Data Source [id number] 03/03/2020 06:31:00 PM EDT [facility] Hospital Name Value Range Interpretation Code Description Data Source(s) Weight (Calculated Kilograms) 76.20 76.20 [facility] Height (Calculated Centimeters) 177.8 177. 8 [facility] Body Mass Index (BMI) 24.0 24.0 [facility] ID Date Data Source [id number] 03/07/2020 12:02:00 AM EDT [facility] spital Name Value Range Interpretation Code Description Data Source(s) Weight Measurement Method 1 1 [facility] Weight (Calculated Kilograms) 79.02 79.02 [facility] Weight 2787.2 2787.2 [facility] pital Temperature Source 7 7 [facility] Temperature 98 98 [facility] spital Respiratory Effort 1 1 [facility] Respiratory Rate 18 18 [facility] Pulse Assessment Method 4 4 [facility] Pulse Rate 97 97 [facility] pital Height (Calculated Centimeters) 177.8 177. 8 [facility] Height 70 70 [facility] 138/75 138/75 [facility] Body Mass Index (BMI) 25.0 25.0 [facility] Weight Measurement Method 1 1 [facility] Weight (Calculated Kilograms) 79.02 79.02 [facility] Weight 2787.2 2787.2 [facility] pital Temperature Source 7 7 [facility] Temperature 98 98 [facility] spital Respiratory Effort 1 1 [facility] Respiratory Rate 18 18 [facility] Pulse Assessment Method 4 4 [facility] Pulse Rate 97 97 [facility] pital Height (Calculated Centimeters) 177.8 177. 8 [facility] Height 70 70 [facility] Blood [facility] 138/75 138/75 [facility] Body Mass Index (BMI) 25.0 25.0 [facility] Weight Measurement Method 1 1 [facility] Weight (Calculated Kilograms) 79.02 79.02 [facility] Weight 2787.2 2787.2 [facility] pital Temperature Source 7 7 [facility] Temperature 98 98 [facility] Respiratory Effort 1 1 [facility] Respiratory Rate 18 18 [facility] Pulse Assessment Method 4 4 [facility] Pulse Rate 97 97 [facility] pital Height (Calculated Centimeters) 177.8 177. 8 [facility] Height 70 70 [facility] pital Blood Pressure 138/75 138/75 [facility] Body Mass Index (BMI) 25.0 25.0 [facility] Weight Measurement Method 1 1 [facility] Weight (Calculated Kilograms) 79.02 79.02 [facility] Weight 2787.2 2787.2 [facility] pital Temperature Source 7 7 [facility] Temperature 98.1 98.1 [facility] Respiratory Effort 1 1 [facility] Respiratory Rate 18 18 [facility] Pulse Assessment Method 4 4 [facility] Pulse Rate 85 85 [facility] pital Height (Calculated Centimeters) 177.8 177. 8 [facility] Height 70 70 [facility] pital Blood Pressure 131/84 131/84 [facility] Body Mass Index (BMI) 25.0 25.0 [facility] Weight Measurement Method 1 1 [facility] Weight (Calculated Kilograms) 79.02 79.02 [facility] Weight 2787.2 2787.2 [facility] pital Temperature Source 1 1 [facility] Temperature 99.0 99.0 [facility] Respiratory Effort 1 1 [facility] Respiratory Rate 20 20 [facility] Pulse Assessment Method 4 4 [facility] Pulse Rate 86 86 [facility] pital Height (Calculated Centimeters) 177.8 177. 8 [facility] Height 70 70 [facility] pital Blood Pressure 124/77 124/77 [facility] Body Mass Index (BMI) 25.0 25.0 [facility] Weight (Calculated Kilograms) 79.10 79.10 [facility] Height (Calculated Centimeters) 177.8 177. 8 [facility] Body Mass Index (BMI) 25.0 25.0 [facility] ID Date Data Source [id number] 11/01/2019 12:31:00 PM EST [facility] Hospital Name Value Range Interpretation Code Description Data Source(s) Weight (Calculated Kilograms) 76.20 76.20 [facility] Height (Calculated Centimeters) 177.8 177. 8 [facility] Body Mass Index (BMI) 24.0 24.0 [facility] Hospital ID Date Data Source [id number] 11/03/2019 03:30:00 AM EST [facility] spital Name Value Range Interpretation Code Description Data Source(s) Weight Measurement Method 1 1 [facility] Weight (Calculated Kilograms) 79.10 79.10 [facility] Weight 2790 2790 [facility] pital Temperature Source 7 7 [facility] Temperature 97.8 97.8 [facility] spital Respiratory Effort 1 1 [facility] Respiratory Rate 20 20 [facility] Pulse Assessment Method [address] [facility] Pulse Rate 74 74 [facility] pital Height (Calculated Centimeters) 177.8 177. 8 [facility] Height 70 70 [facility] 139/80 139/80 [facility] Body Mass Index (BMI) 25.0 25.0 [facility] Weight Measurement Method 1 1 [facility] Weight (Calculated Kilograms) 79.10 79.10 [facility] Weight 2790 2790 [facility] pital Temperature Source 7 7 [facility] Temperature 97.8 97.8 [facility] spital Respiratory Effort 1 1 [facility] Respiratory Rate 20 20 [facility] Pulse Assessment Method [address] [facility] Pulse Rate 74 74 [facility] pital Height (Calculated Centimeters) 177.8 177. 8 [facility] Height 70 70 [facility] 139/80 139/80 [facility] Body Mass Index (BMI) 25.0 25.0 [facility] Weight Measurement Method 1 1 [facility] Weight (Calculated Kilograms) 79.10 79.10 [facility] Weight 2790 2790 [facility] pital Temperature Source 7 7 [facility] Temperature 97.8 97.8 [facility] Respiratory Effort 1 1 [facility] Respiratory Rate 20 20 [facility] Pulse Assessment Method 1 1 [facility] Pulse Rate 74 74 [facility] pital Height (Calculated Centimeters) 177.8 177. 8 [facility] Height 70 70 [facility] pital Blood Pressure 139/80 139/80 [facility] Body Mass Index (BMI) 25.0 25.0 [facility] Weight Measurement Method 1 1 [facility] Weight (Calculated Kilograms) 79.10 79.10 [facility] Weight 2790 2790 [facility] pital Temperature Source 1 1 [facility] Temperature 98.3 98.3 [facility] Respiratory Effort 1 1 [facility] Respiratory Rate 18 18 [facility] Pulse Assessment Method 4 4 [facility] Pulse Rate 83 83 [facility] pital Height (Calculated Centimeters) 177.8 177. 8 [facility] Height 70 70 [facility] pital Blood Pressure 147/83 147/83 [facility] Body Mass Index (BMI) 25.0 25.0 [facility] Weight Measurement Method 1 1 [facility] Weight (Calculated Kilograms) 79.10 79.10 [facility] Weight 2790 2790 [facility] pital Temperature Source 1 1 [facility] Temperature 98.3 98.3 [facility] Respiratory Effort 1 1 [facility] Respiratory Rate 18 18 [facility] Pulse Assessment Method 4 4 [facility] Pulse Rate 83 83 [facility] pital Height (Calculated Centimeters) 177.8 177. 8 [facility] Height 70 70 [facility] pital Blood Pressure 147/83 147/83 [facility] Body Mass Index (BMI) 25.0 25.0 [facility] Weight Measurement Method 1 1 [facility] Weight (Calculated Kilograms) 79.10 79.10 [facility] Weight 2790 2790 [facility] Temperature Source 7 7 [facility] Temperature 98.3 98.3 [facility] spital Respiratory Effort 1 1 [facility] Respiratory Rate 18 18 [facility] Pulse Assessment Method 4 4 [facility] Pulse Rate 87 87 [facility] Height (Calculated Centimeters) 177.8 177. 8 [facility] Height 70 70 [facility] Blood Pressure 154/84 154/84 [facility] Body Mass Index (BMI) 25.0 25.0 [facility]
[2020-10-05] MEDS ORDERED: AMLO1TAB25 (11:08)
[2020-10-05] MEDS ORDERED: FLUTISP (11:08)
[2020-10-05] MEDS ORDERED: ANOR1AER (11:08)
[2020-10-05] MEDS ORDERED: TRAZ-189 (11:08)
--- OUTSIDE RECORDS SUMMARY | 2020-10-05 11:33 | CCD ---
Author Author [facility] Organization [facility] Address Unknown Phone Unavailable Care Team Providers Care Margin Clerk Name Role Phone Venancio BERNABE MD Unavailable [...] FRANCY, Venancio CONDE MD Unavailable Unavailable FRANCY, Veanncio CONDE MD Unavailable Unavailable FRANCY, Venancio CONDE [...] is protected by Article 27-F of the [facility] Public Health law. If you continue you may have access to information: Regarding HIV / AIDS; Provided by facilities licensed or operated by the [facility] Office of Mental Health; or Provided by the [facility] Office for People With Developmental Disabilities. If such information is present, then the following [facility] mandated warning applies: This information has [...] Flomax Flomax retograde ejaculation Active eC W1 ([facility]) Flomax Flomax Flomax retograde ejaculation Active eC W1 ([facility]) Drug allergy Drug allergy No Known Allergies [facility] Family History Family Member Name Family Member Gender Family Member Status Date o f Status Description Data Source(s) Unknown Unknown Problem MEDENT ([facility], ) Encounters Encounter Providers Location Date Indications Data Source(s ) Outpatient [facility] 07/01/2020 02:11:00 PM EDT [facility] Inpatient Attender: Mikey Arevalo DOAdmitter: Mikey FAY [facility] 07/01/2020 01:11:00 PM EDT - 07/07/2020 08:28:00 AM EDT F1020 [facility] F1020 Patient discharged. [facility] [address] [facility] [address] 04/04/2020 12:00:00 AM EDT eCW1 (Critical access hospital) [place] [address] [facility] [address] 03/27/2020 12:00:00 AM EDT eCW1 (Critical access hospital) [facility] 03/01/2020 08:11:00 PM EDT [facility] Inpatient Attender: LEWIS LEBRON DOAdmitter: LEWIS Ta DO ED-MSP 03/01/2020 02:18:00 PM EDT - 03/05/2020 12:30:00 PM EDT F1020 [facility] F1020 Patient discharged. [place] [address] [facility] [address] 02/28/2020 12:00:00 AM EDT eCW1 (Critical access hospital) [facility] [place] [address] [place] [address] [place] [address] 01/20/2020 12:00:00 AM EDT eCW1 ([facility]) [facility] Center [address] [place] [phone] 01/17/2020 12:00:00 AM EDT eCW1 ([facility]) [facility] Center [address] [place] [phone] 01/07/2020 12:00:00 AM EDT eCW1 ([facility]) Unknown [address] [place] [address] [place] [address] 11/17/2019 12:00:00 AM EST eCW1 ([facility]) [facility] [address] [place] [phone] 11/17/2019 12:00:00 AM EST eCW1 ([facility]) Outpatient [facility] 10/28/2019 08:10:00 PM EST [facility] Inpatient Attender: AMAYA BERNABE MDAdmitter: AMAYA BERNABE MD ED-MSP 10/28/2019 03:11:00 PM EST - 11/02/2019 09:15:00 AM EST F10.20 [facility] F10.20 Patient discharged. [facility] Pain [address] [address] 10/25/2019 12:00:00 AM EST eCW1 ([facility]) [facility] Jesus [address] [place] [address] 10/08/2019 12:00:00 AM EST eCW1 ([facility]) [facility] [place] [address] [place] [phone] 10/06/2019 12:00:00 AM EST eCW1 ([facility]) [facility] [place] [address] [place] [phone] 10/06/2019 12:00:00 AM EST eCW1 ([facility]) [facility] [place] [address] [place] [address] 09/10/2019 12:00:00 AM EST eCW1 (Critical access hospital) [place] [id number] [facility], [facility] [address] 09/06/2019 12:00:00 AM EST eCW1 (Critical access hospital) Medications Medication Brand Name Start Date Product [...] 07/17/2020 12:00:00 AM EST ORAL active MEDENT ([facility]) Melodetta 24 Fe Melodetta 24 Fe 07/17/2020 12:00:00 AM EST completed MEDENT ([facility]) Fluticasone Propionate Fluticasone Propionate 07/14/2020 12:00:00 AM E DT active MEDENT ([facility]) Acamprosate calcium 333 MG Delayed Release Oral Tablet Acamp rosate Calcium 07/14/2020 12:00:00 AM EDT ORAL active MEDENT ([facility]) Omeprazole 20 MG Delayed Release Oral Capsule Omeprazole 07/14/2020 12:00:00 AM EDT ORAL active MEDENT ([facility]) meloxicam 15 MG Oral Tablet Meloxicam 07/14/2020 12:00:00 AM EDT ORAL completed MEDENT ([facility]) 30 ACTUAT umeclidinium 0.0625 MG/ACTUAT / vilanterol 0.025 MG/ACTUAT Dry Powder Inhaler [Anoro] Anoro Ellipta 07/14/2020 12:00:00 AM EDT ORAL active MEDENT ([facility]) 62.5-25 mcg/actuation 06/16/2020 12:00:00 AM EDT [...] tablet immediately after the same meal eCW1 ([facility]) 24 HR Alfuzosin hydrochloride 10 MG Exte nded Release Oral Tablet Alfuzosin HCl ER 10 MG Alfuzosin HCl ER 10 MG 10/08/2019 12:00:00 AM EST 1.0 {tablet_immediately_after_the_same_meal} active Alfuzosin HCl ER 10 MG eCW1 ([facility]) 24 HR Alfuzosin hydrochloride 10 MG Exte nded Release Oral Tablet Alfuzosin HCl ER 10 MG Alfuzosin HCl ER 10 MG 10/08/2019 12:00:00 AM EST 1.0 {tablet_immediately_after_the_same_meal} active Alfuzosin HCl ER 10 MG eCW1 ([facility]) 24 HR Alfuzosin hydrochloride 10 MG Exte nded Release Oral Tablet Alfuzosin HCl ER 10 MG Alfuzosin HCl ER 10 MG 10/08/2019 12:00:00 AM EST active 1 tablet immediately after the same meal eCW1 ([facility]) 24 HR Alfuzosin hydrochloride 10 MG Exte nded Release Oral Tablet Alfuzosin HCl ER 10 MG Alfuzosin HCl ER 10 MG 10/08/2019 12:00:00 AM EST 1.0 {tablet_immediately_after_the_same_meal} active Alfuzosin HCl ER 10 MG eCW1 ([facility]) Chantix Starting Month Jairon 0.5 MG X 11 & 1 MG X 42 Jaz ntix Starting Month Jairon 0.5 MG X 11 & 1 MG X 42 10/06/2019 12:00:00 AM EST suspended Chantix Starting Month Jairon 0.5 MG X 11 & 1 MG X 42 eCW1 ([facility]) Chantix Starting Month Jairon 0.5 MG X 11 & 1 MG X 42 Jaz ntix Starting Month Jairon 0.5 MG X 11 & 1 MG X 42 10/06/2019 12:00:00 AM EST active as directed eCW1 ([facility]) silodosin 8 MG Oral Capsule Silodosin 8 MG Silodosin 8 MG 10/06/2019 12:00:00 AM EST suspended 1 capsule with a meal eCW1 ([facility]) Chantix Starting Month Jairon 0.5 MG X 11 & 1 MG X 42 Jaz ntix Starting Month Jairon 0.5 MG X 11 & 1 MG X 42 10/06/2019 12:00:00 AM EST suspended Chantix Starting Month Jairon 0.5 MG X 11 & 1 MG X 42 eCW1 ([facility]) Chantix Starting Month Jairon 0.5 MG X 11 & 1 MG X 42 Jaz ntix Starting Month Jairon 0.5 MG X 11 & 1 MG X 42 10/06/2019 12:00:00 AM EST suspended Chantix Starting Month Jairon 0.5 MG X 11 & 1 MG X 42 eCW1 ([facility]) silodosin 8 MG Oral Capsule Silodosin 8 MG Silodosin 8 MG 10/06/2019 12:00:00 AM EST 1.0 {capsule_with_a_meal} suspended Silodosin 8 MG eCW1 ([facility]) silodosin 8 MG Oral Capsule Silodosin 8 MG Silodosin 8 MG 10/06/2019 12:00:00 AM EST 1.0 {capsule_with_a_meal} suspended Silodosin 8 MG eCW1 ([facility]) silodosin 8 MG Oral Capsule Silodosin 8 MG Silodosin 8 MG 10/06/2019 12:00:00 AM EST 1.0 {capsule_with_a_meal} suspended Silodosin 8 MG eCW1 ([facility]) silodosin 8 MG Oral Capsule Silodosin 8 MG Silodosin 8 MG 10/06/2019 12:00:00 AM EST suspended 1 capsule with a meal eCW1 ([facility]) Chantix Starting Month Jairon 0.5 MG X 11 & 1 MG X 42 Jaz ntix Starting Month Jairon 0.5 MG X 11 & 1 MG X 42 10/06/2019 12:00:00 AM EST suspended as directed eCW1 ([facility]) Insurance Providers Payer name Policy type / Coverage type Policy ID Covered libertarian ID Covered libertarian's relationship to case Policy Case Plan Information [facility] [id number] SP [id number] SELF PAY ONLY [id number] SP [id number] [facility] [id number] [facility] [id number] Self-employed, [id number] OTHER NO FAULT [id number] SP [id number] [facility] COMMUNITY PLAN [facility] [id number] SP [id number] RAZ [id number] SP [id number] [place] U[place] S [place] O [id number] S [id number] NO FAULT [id number] SP [id number] NO FAULT SP [employer] 00 [id number] ANSI-Medicaid [id number] ANSI-Commercial [id number] ANSI-Medicaid [id number] ANSI-Commercial [id number] ANSI-Commercial [id number] ANSI-Medicaid [id number] ANSI-Medicaid [id number] ANSI-Commercial [id number] ANSI-Medicaid [id number] ANSI-Commercial [id number] ANSI-Commercial [id number] [facility] [id number] ANSI-Commercial [id number] [facility] [id number] ANSI-Commercial [id number] ANSI-Medicaid [id number] ANSI-Commercial [id number] [facility] [id number] [facility] [id number] ANSI-Commercial [id number] ANSI-Medicaid [id number] ANSI-Commercial [id number] RAZ I [id number] Self [id number] [facility] I [id number] Self [id number] MEDICAID M [id number] S [id number] MEDICAID [id number] SP [id number] RAZ [id number] SP [id number] RAZ [id number] SP [id number] Hmo Blue Option/Medicaid Health Maintenance Organization (HMO) [id number] Self [id number] [facility] Medigap Part B [id number] Self [id number] [employer] [facility] [place] Medicaid [id number] Self [id number] RAZ [id number] SP [id number] Hmo Blue Option/Medicaid Health Maintenance Organization (HMO) [id number] Self [id number] RAZ [id number] SP [id number] [place] O [id number] S [id number] MEDICAID [id number] SP [id number] MEDICAID [id number] SP [id number] UNHC COMMUNITY PLAN MCDHMO [id number] SP [id number] HMO BLUE [id number] SP [id number] BLUE [employer] [id number] SP [id number] HMO BLUE [id number] SP [id number] RAZ [id number] SP [id number] [facility](MCAID) O [id number] S [id number] [facility] [id number] SP [id number] [place]ID [place] 3 [id number] SELF PAY 2 UNAVAILABLE 1 UNAVAILA BLE [employer] 2 [id number] Problems, Conditions, and Diagnoses Code Display Name Description Problem Type Effective Dates Data Source(s) K76.0 Fatty liver Fatty liver Problem 10/06/2019 12:00:00 AM EST eCW1 ([facility]) K76.0 Fatty liver Fatty liver Problem 10/06/2019 12:00:00 AM EST eCW1 ([facility]) B18.2 Chronic viral hepatitis C CHRONIC VIRAL HEPATITIS C Di agnosis 07/01/2020 01:11:00 PM [facility] J30.2 Other seasonal allergic rhinitis OTHER SEASONAL ALLERGIC RHINITIS Diagnosis 07/01/2020 01:11:00 PM [facility] F17.219 Nicotine dependence, cigaret hossein, with unspecified nicotine-induced disorders NICOTINE DEPENDENCE, CIGARETTES, W UNSP DISORDERS Diagnosis 07/01/2020 01:11:00 PM [facility] F41.9 Anxiety disorder, unspecified ANXIETY DISORDER, UNSPEC IFIED Diagnosis 07/01/2020 01:11:00 PM [facility] J44.9 Chronic obstructive pulmonary disease, u nspecified CHRONIC OBSTRUCTIVE PULMONARY DISEASE, UNSPECIFIED Diagnosis 07/01/2020 01:11:00 PM [facility] K21.9 Gastro-esophageal reflux disease without esophagitis GASTRO-ESOPHAGEAL REFLUX DISEASE WITHOUT ESOPHAGITIS Diagnosis 07/01/2020 01:11:00 PM [facility] F10.282 Alcohol dependence with alcohol-induced sleep disorder ALCOHOL DEPENDENCE WITH ALCOHOL-INDUCED SLEEP DISORDER Diagnosis 020 01:11:00 PM [facility] F10.230 Alcohol dependence with withdrawal, unco mplicated ALCOHOL DEPENDENCE WITH WITHDRAWAL, UNCOMPLICATED Diagnosis 07/01/2020 01:11:00 PM [facility] Y90.7 Blood alcohol level of 200-239 mg/100 ml BLOOD ALCOHOL LEVEL OF 200-239 MG/100 ML Diagnosis 07/01/2020 01:11:00 PM [facility] F17.210 Nicotine dependence, cigarettes, uncompl icated NICOTINE DEPENDENCE, CIGARETTES, UNCOMPLICATED Diagnosis 07/01/2020 01:11:00 PM [facility] Y90.4 Blood alcohol level of 80-99 mg/100 ml B LOOD ALCOHOL LEVEL OF 80-99 MG/100 ML Diagnosis 03/01/2020 02:18:00 PM EDT [facility] M19.142 Post-traumatic osteoarthritis, left hand POST-TRAUMATIC OSTEOARTHRITIS, LEFT HAND Diagnosis 03/01/2020 02:18:00 PM EDT [facility] M19.141 Post-traumatic osteoarthritis, right dia d POST-TRAUMATIC OSTEOARTHRITIS, RIGHT HAND Diagnosis 03/01/2020 02:18:00 PM EDT [facility] R07.9 Chest pain, unspecified CHEST PAIN, UNSPECIFIED Diagno sis 03/01/2020 02:18:00 PM [facility] M54.2 Cervicalgia CERVICALGIA Diagnosis 03/01/2020 02:18:00 PM [facility] M19.041 Primary osteoarthritis, right hand PRIMARY OSTEO ARTHRITIS, RIGHT HAND Diagnosis 03/01/2020 02:18:00 PM [facility] Y90.6 Blood alcohol level of 120-199 mg/100 ml BLOOD ALCOHOL LEVEL OF 120-199 MG/100 ML Diagnosis 10/28/2019 03:11:00 PM [facility] M19.042 Primary osteoarthritis, left hand PRIMARY OSTEOA RTHRITIS, LEFT HAND Diagnosis 10/28/2019 03:11:00 PM [facility] F12.10 Cannabis abuse, uncomplicated CANNABIS ABUSE, UNCOMPLI CATED Diagnosis 10/28/2019 03:11:00 PM [facility] G47.00 Insomnia, unspecified INSOMNIA, UNSPECIFIED Diagnosis 10/28/2019 03:11:00 PM [facility] E83.42 Hypomagnesemia HYPOMAGNESEMIA Diagnosis 10/28/2019 03:11: 00 PM [facility] F10.239 Alcohol dependence with withdrawal, unsp ecified ALCOHOL DEPENDENCE WITH WITHDRAWAL, UNSPECIFIED Diagnosis 10/28/2019 03:11:00 PM [facility] F10.229 Alcohol dependence with intoxication, un specified ALCOHOL DEPENDENCE WITH INTOXICATION, UNSPECIFIED Diagnosis 10/28/2019 03:11:00 PM [facility] Surgeries/Procedures Procedure Description Date Indications Data Source(s) [facility] TECHNICIAN FOR SUBSTANCE ABUSE TREATMENT, CONTINUING CARE 07/02/2020 12:00:00 AM [facility] Individual Counseling for Substance Abuse Treatment, C ognitive-Behavioral INDIV VIDEO GAME TECHNICIAN FOR SUBSTANCE ABUSE, COGNITIVE BEHAVIORAL 07/01/2020 12:00:00 AM [facility] Detoxification Services for Substance Abuse Treatment DETOXIFICATION SERVICES FOR SUBSTANCE ABUSE TREATMENT 07/01/2020 12:00:00 AM [facility] ESTABILISHED PATIENT [facility] FACILITY CHARGE 020 12:00:00 AM EST eCW1 ([facility]) Group Counseling for Substance Abuse Treatment, Cognit ulysses-Behavioral GROUP VIDEO GAME TECHNICIAN FOR SUBSTANCE ABUSE, COGNITIVE BEHAVIORAL 10/28/2019 12:00:00 AM [facility] Results ID Date Data Source [id number] 07/06/2020 07:35:00 AM [facility] Name Value Range Interpretation Code Description Data Ana rce(s) Supporting Document(s) Sodium 138 mmol/L 136-145 Normal (applies to non-numeric resul ts) [facility] Potassium 3.5-5.1 Normal (applies to non-numeric resul ts) [facility] Chloride 103 mmol/L 98-107 Normal (applies to non-numeric resul ts) [facility] Carbon Dioxide CO2 21-32 Normal (applies to non-numer ic results) [facility] Anion Gap 5.0-16.0 Normal (applies to non-numeric resul ts) [facility] BUN 14 mg/dL 7-18 Normal (applies to non-numeric results) [facility] Creatinine,Serum 0.8-1.5 Below low normal [facility] GFR >60 Normal (applies to non-numeric results) [facility] Glucose Level 98 mg/dL 60-99 Normal (applies to non-numeric re sults) [facility] Reference range is only applicable when patient is fasting Note the following drug interference: Sulfasalazine Sulfapyridine Can see falsely depressed Can see falsely elevated result with up to 17% results with up to 11% decrease in measurement increase in measurement Recommend patients be collected for this test prior to administration of either drug. Calcium 8.5-10.1 Normal (applies to non-numeric resul ts) [facility] ID Date Data Source [id number] 07/06/2020 07:36:00 AM EDT [facility] Name Value Range Interpretation Code Description Data Ana rce(s) Supporting Document(s) Magnesium 1.8-2.4 Normal (applies to non-numeric resul ts) [facility] ID Date Data Source [id number] 07/02/2020 08:43:00 AM EDT [facility] Name Value Range Interpretation Code Description Data Ana rce(s) Supporting Document(s) Sodium 135 mmol/L 136-145 Below low normal [facility] Potassium 3.5-5.1 Normal (applies to non-numeric resul ts) [facility] Chloride 100 mmol/L 98-107 Normal (applies to non-numeric resul ts) [facility] Carbon Dioxide CO2 21-32 Normal (applies to non-numer ic results) [facility] Anion Gap 5.0-16.0 Normal (applies to non-numeric resul ts) [facility] BUN 6 mg/dL 7-18 Below low normal [facility] Creatinine,Serum 0.8-1.5 Below low normal [facility] GFR >60 Normal (applies to non-numeric results) [facility] Glucose Level 101 mg/dL 60-99 Above high normal [facility] Reference range is only applicable when patient is fasting Note the following drug interference: Sulfasalazine Sulfapyridine Can see falsely depressed Can see falsely elevated result with up to 17% results with up to 11% decrease in measurement increase in measurement Recommend patients be collected for this test prior to administration of either drug. Calcium 8.5-10.1 Normal (applies to non-numeric resul ts) [facility] ID Date Data Source [id number] 07/04/2020 02:42:00 PM EDT [facility] Name Value Range Interpretation Code Description Data Ana rce(s) Supporting Document(s) Chlamydia,Urine Negative Normal (applies to non-numeric results) [facility] Test Performed By: [facility] [address] [place] [address] Director: Ana María Smith MD . GC Urine Negative Normal (applies to non-numeric resul ts) [facility] Test Performed By: [facility] [address] [place] [address] Director: Ana María Smith MD . Methodology: Second generation nucleic acid amplification. ID Date Data Source [id number] 07/04/2020 11:40:00 AM EDT [facility] Name Value Range Interpretation Code Description Data Ana rce(s) Supporting Document(s) Hepatitis A Ab,IgG result Normal (applies to no n-numeric results) [facility] Result indicates no past exposure or imm unity to hepatitis A infection. REFERENCE VALUE Unvaccinated: Negative Vaccinated: Positive Test Performed by: [place] [address] Calender Let Off Operator: Luis Alfredo Beck M.D. Ph.D.; CLIA# [id number] ID Date Data Source [id number] 07/04/2020 10:11:00 AM EDT [facility] Value Range Interpretation Code Description Data Ana e(s) Supporting Document(s) Hepatitis A Ab,IgG result Normal (applies to no n-numeric results) [facility] Result indicates no past exposure or imm unity to hepatitis A infection. REFERENCE VALUE Unvaccinated: Negative Vaccinated: Positive Test Performed by: [place] [address] Calender Let Off Operator: Luis Alfredo Beck M.D. Ph.D.; CLIA# [id number] ID Date Data Source [id number] 07/01/2020 01:58:00 PM EDT [facility] Name Value Range Interpretation Code Description Data Ana rce(s) Supporting Document(s) Sodium 130 mmol/L 136-145 Below low normal [facility] Potassium 3.5-5.1 Below low normal [facility] sp[facility] Chloride 95 mmol/L 98-107 Below low normal [facility] sp[facility] Carbon Dioxide CO2 21-32 Normal (applies to non-numer ic results) [facility] Anion Gap 5.0-16.0 Normal (applies to non-numeric resul ts) [facility] BUN 3 mg/dL 7-18 Below low normal [facility] spital Creatinine,Serum 0.8-1.5 Below low normal [facility] GFR >60 Normal (applies to non-numeric results) [facility] Glucose Level 119 mg/dL 60-99 Above high normal [facility] Reference range is only applicable when patient is fasting Note the following drug interference: Sulfasalazine Sulfapyridine Can see falsely depressed Can see falsely elevated result with up to 17% results with up to 11% decrease in measurement increase in measurement Recommend patients be collected for this test prior to administration of either drug. Calcium 8.5-10.1 Normal (applies to non-numeric resul ts) [facility] Bilirubin,Total 0.1-1.9 Normal (applies to non-numeric results) [facility] SGOT(AST) 63 U/L 15-37 Above high normal [facility] Note the following drug interference: Sulfasalazine Sulfapyridine Can see falsely depressed Can see falsely elevated result with up to 10% results with up to 10% decrease in measurement increase in measurement Recommend patients be collected for this test prior to administration of either drug. SGPT(ALT) 51 U/L 12-78 Normal (applies to non-numeric resul ts) [facility] Note the following drug interference: Sulfasalazine Sulfapyridine Can see falsely depressed Can see falsely elevated result with up to 29% results with up to 10% decrease in measurement increase in measurement Recommend patients be collected for this test prior to administration of either drug. Alkaline Phosphatase 70 U/L 38-126 Normal (applies to non-num young results) [facility] can increase Alkaline Phosp le vels up to 2 times the normal adult value. Normal values for children and adolescents are 2 to 3 times the normal adult value. Total Protein 6.0-8.2 Normal (applies to non-numeric re sults) [facility] Albumin Level 3.4-5.0 Normal (applies to non-numeric re sults) [facility] ID Date Data Source [id number] 07/01/2020 01:58:00 PM EDT [facility] Name Value Range Interpretation Code Description Data Ana rce(s) Supporting Document(s) Magnesium 1.8-2.4 Below low normal [facility] spital ID Date Data Source [id number] 07/01/2020 01:58:00 PM EDT [facility] Value Range Interpretation Code Description Data Ana rce(s) Supporting Document(s) Phosphorus 2.5-4.9 Normal (applies to non-numeric resul ts) [facility] ID Date Data Source [id number] 07/01/2020 01:58:00 PM [facility] Name Value Range Interpretation Code Description Data Ana rce(s) Supporting Document(s) Thyroid Stimulate Hormone TSH 0.358-3.74 No rmal (applies to non-numeric results) [facility] ID Date Data Source [id number] 07/01/2020 01:58:00 PM [facility] Value Range Interpretation Code Description Data Ana rce(s) Supporting Document(s) Bilirubin,Direct 0.05-0.20 Normal (applies to non-numeric results) [facility] ID Date Data Source [id number] 07/01/2020 06:13:00 PM EDT [facility] Value Range Interpretation Code Description Data Ana rce(s) Supporting Document(s) CPK result 116 U/L 39-308 Normal (applies to non-numeric resul ts) [facility] Test [facility]formed By: [facility] [address] [place] [address] Director: Ana María Smith MD ID Date Data Source [id number] 07/01/2020 05:10:00 PM EDT [facility] Name Value Range Interpretation Code Description Data Ana rce(s) Supporting Document(s) CPK 116 U/L 39-308 Normal (applies to non-numeric resul ts) [facility] Test Performed By: [facility] [address] [place] [address] Director: Ana María Smith MD ID Date Data Source [id number] 07/01/2020 01:52:00 PM EDT [facility] Name Value Range Interpretation Code Description Data Ana rce(s) Supporting Document(s) Ethanol Less than 10.0 Above high normal [facility] ID Date Data Source [id number] 07/01/2020 01:51:00 PM EDT [facility] Name Value Range Interpretation Code Description Data Ana rce(s) Supporting Document(s) White Blood Count 3.5-10.5 Normal (applies to non-numeri c results) [facility] Red Blood Count 4.30-5.70 Normal (applies to non-numeric results) [facility] Hemoglobin 13.5-17.5 Normal (applies to non-numeric resul ts) [facility] Hematocrit 38.8-50.0 Normal (applies to non-numeric resul ts) [facility] Mean Corpuscular Volume 81.2-95.1 Normal (applies to non- numeric results) [facility] Mean Corpuscular Hgb 25.6-32.2 Above high normal [facility] Mean Corpuscular Hgb Conc 32.0-36.0 Normal (applies to no n-numeric results) [facility] Red Cell Distribution Width 11.8-15.6 Normal (appli es to non-numeric results) [facility] Platelet Count 198 x10 3/uL 150-450 Normal (applies to non-numeric results) [facility] Mean Platelet Volume 9.4-12.4 Below low normal [facility] Neutrophils% (Auto) 31.0-71.0 Normal (applies to non-nume ava results) [facility] Lymphocytes% (Auto) 20.0-55.0 Normal (applies to non-nume ava results) [facility] Monocytes% (Auto) 4.0-12.0 Normal (applies to non-numeri c results) [facility] Eosinophils% (Auto) 1.0-8.0 Normal (applies to non-nume ava results) [facility] Basophils% (Auto) 0.0-2.0 Normal (applies to non-numeri c results) [facility] Immature Granulocytes% (Auto) 0.0-2.0 Normal (tong lies to non-numeric results) [facility] Neutrophils# (Auto) 1.50-6.20 Normal (applies to non-nume ava results) [facility] Lymphocytes# (Auto) 1.20-4.00 Normal (applies to non-nume ava results) [facility] Monocytes# (Auto) 0.00-0.90 Normal (applies to non-numeri c results) [facility] Eosinophils# (Auto) 0.00-0.50 Normal (applies to non-nume ava results) [facility] Basophils# (Auto) 0.00-0.20 Normal (applies to non-numeri c results) [facility] Immature Granulocytes# (Auto) 0.00-7.00 No rmal (applies to non-numeric results) [facility] ID Date Data Source [id number] 07/04/2020 03:30:[address] [facility] Name Value Range Interpretation Code Description Data Ana rce(s) Supporting Document(s) Chlamydia,Urine result Negative Normal (applies to non-n umeric results) [facility] Test Performed By: [facility] an[facility] Laboratory [address] [place] [address] Director: Ana María Smith MD . GC Urine result Negative Normal (applies to non-numeric results) [facility] Test Performed By: [facility] [address] [place] [address] Director: Ana María Smith MD . Methodology: Second generation nucleic acid amplification. ID Date Data Source [id number] 07/01/2020 01:53:00 PM EDT [facility] Name Value Range Interpretation Code Description Data Ana rce(s) Supporting Document(s) UDS Phencyclidine Screen Negative Normal (applies to non -numeric results) [facility] UDS Benzodiazepines Screen Negative Normal (applies to n on-numeric results) [facility] UDS Cocaine Screen Negative Normal (applies to non-numer ic results) [facility] UDS Ampetamine Screen Negative Normal (applies to non-nu meric results) [facility] UDS Cannabinoids Screen Negative [facility] UDS Opiates Screen Negative Normal (applies to non-numer ic results) [facility] UDS Barbiturates Screen Negative Normal (applies to non- numeric results) [facility] UDS Tricyclic Screen Negative Normal (applies to non-num young results) [facility] Therapeutic Drug Ranges for Emergency Threshold Levels [...] treatment purposes only. ID Date Data Source [id number] 07/01/2020 01:35:00 PM [facility] Collected By: Field Reporter Name Value Range Interpretation Code Description Data Ana rce(s) Supporting Document(s) Color,Urine Colorl-Dk Y Normal (applies to non-numeric res ults) [facility] Clarity,Urine Clear Normal (applies to non-numeric re sults) [facility] Specific [place],Urine 1.005-1.030 Normal (applies to non- numeric results) [facility] pH,Urine 5.0-8.0 Normal (applies to non-numeric resul ts) [facility] Protein,Urine Negative Normal (applies to non-numeric re sults) [facility] Glucose,Urine Negative Normal (applies to non-numeric re sults) [facility] Ketones,Urine Negative Normal (applies to non-numeric re sults) [facility] Blood,Urine Negative Normal (applies to non-numeric resu lts) [facility] Bilirubin,Urine Negative Normal (applies to non-numeric results) [facility] Urobilinogen,Urine 0.2-1.0 Normal (applies to non-numer ic results) [facility] Leukocyte Esterase,Urine Negative Normal (applies to non -numeric results) [facility] Nitrite,Urine Negative Normal (applies to non-numeric re sults) [facility] ID Date Data Source [id number] 03/05/2020 11:23:00 AM EDT [facility] Imaging Services Department Imaging Report [address] [place], [place] [address] %(RAD)RES..mtdd.print.filter("line") Name: SIVA BENJAMIN : 1955 Age/Sex: 64M Ordering Provider: Ja Givens MD Med Rec #: [id number] Reg Status: DIS IN Room #: 125-1 Date of Service: 03/04/20 Report Number: [id number] cc:Ja Givens MD; PCP None Send Report To: [id number] XRP/XR C Spine w Flex and Ext [...] Date/Time: 03/04/20 1112 Transcribed Date/Time: 03/05/20 1123 Butadiene Converter Helper: LARRYJAY JAY Name Value Range Interpretation Code Description Data Ana rce(s) Supporting Document(s) ID Date Data Source [id number] 03/05/2020 11:26:00 AM EDT [facility] Imaging Services Department Imaging Report [address] [place], [place] [address] %(RAD)RES..mtdd.print.filter("line") Name: SIVA BENJAMIN : 1955 Age/Sex: 64M Ordering Provider: Ja Givens MD Med Rec #: [id number] Reg Status: DIS IN Room #: 125-1 Date of Service: 03/04/20 Report Number: [id number] cc:Ja Givens MD; PCP None Send Report To: [id number] XRP/XR T Spine 3 View Reason for [...] Date/Time: 03/04/20 1116 Transcribed Date/Time: 03/05/20 1126 Butadiene Converter Helper: HIEN Name Value Range Interpretation Code Description Data Ana rce(s) Supporting Document(s) ID Date Data Source [id number] 03/04/2020 02:28:00 PM EDT [facility] Imaging Services Department Imaging Report [address] [place], [place] [address] %(RAD)RES..mtdd.print.filter("line") Name: SIVA BENJAMIN : 1955 Age/Sex: 64M Ordering Provider: Ja Givens MD Med Rec #: [id number] Reg Status: DIS IN Room #: 125-1 Date of Service: 03/03/20 Report Number: [id number] cc:Ja Givens MD; PCP None Send Report To: [id number] XRP/XR Chest 2 View [Pa & Lat] [...] Date/Time: 03/03/20 1537 Transcribed Date/Time: 03/04/20 1428 Butadiene Converter Helper: HIEN Name Value Range Interpretation Code Description Data Ana rce(s) Supporting Document(s) ID Date Data Source [id number] 03/02/2020 08:09:00 AM EDT [facility] Name Value Range Interpretation Code Description Data Ana rce(s) Supporting Document(s) Bilirubin,Total 0.1-1.9 Normal (applies to non-numeric results) [facility] Bilirubin,Direct 0.05-0.20 Normal (applies to non-numeric results) [facility] SGOT(AST) 63 U/L 15-37 Above high normal [facility] ospital Note the following drug interference: Sulfasalazine Sulfapyridine Can see falsely depressed Can see falsely elevated result with up to 10% results with up to 10% decrease in measurement increase in measurement Recommend patients be collected for this test prior to administration of either drug. SGPT(ALT) 91 U/L 12-78 Above high normal [facility] ospital Note the following drug interference: Sulfasalazine Sulfapyridine Can see falsely depressed Can see falsely elevated result with up to 29% results with up to 10% decrease in measurement increase in measurement Recommend patients be collected for this test prior to administration of either drug. Alkaline Phosphatase 80 U/L 38-126 Normal (applies to non-num young results) [facility] can increase Alkaline Phosp le vels up to 2 times the normal adult value. Normal values for children and adolescents are 2 to 3 times the normal adult value. Total Protein 6.0-8.2 Normal (applies to non-numeric re sults) [facility] Albumin Level 3.4-5.0 Normal (applies to non-numeric re sults) [facility] ID Date Data Source [id number] 03/02/2020 08:09:00 AM EDT [facility] Name Value Range Interpretation Code Description Data Ana rce(s) Supporting Document(s) Magnesium 1.8-2.4 Normal (applies to non-numeric resul ts) [facility] ID Date Data Source [id number] 03/02/2020 08:09:00 AM [facility] Name Value Range Interpretation Code Description Data Ana rce(s) Supporting Document(s) Sodium 136 mmol/L 136-145 Normal (applies to non-numeric resul ts) [facility] Potassium 3.5-5.1 Normal (applies to non-numeric resul ts) [facility] Chloride 99 mmol/L 98-107 Normal (applies to non-numeric resul ts) [facility] Carbon Dioxide CO2 21-32 Normal (applies to non-numer ic results) [facility] Anion Gap 5.0-16.0 Normal (applies to non-numeric resul ts) [facility] BUN 8 mg/dL 7-18 Normal (applies to non-numeric results) [facility] Creatinine,Serum 0.8-1.5 Below low normal [facility] GFR >60 Normal (applies to non-numeric results) [facility] Glucose Level 102 mg/dL 60-99 Above high normal [facility] Reference range is only applicable when patient is fasting Note the following drug interference: Sulfasalazine Sulfapyridine Can see falsely depressed Can see falsely elevated result with up to 17% results with up to 11% decrease in measurement increase in measurement Recommend patients be collected for this test prior to administration of either drug. Calcium 8.5-10.1 Normal (applies to non-numeric resul ts) [facility] ID Date Data Source [id number] 03/02/2020 08:08:00 AM [facility] Name Value Range Interpretation Code Description Data Ana rce(s) Supporting Document(s) Ammonia 18 umol/L 11-32 Normal (applies to non-numeric resul ts) [facility] Note the following drug interference: Sulfasalazine Sulfapyridine Can see falsely elevated Can see falsely depressed result with up to 10% results with up to 19% increase in measurement decrease in measurement Recommend patients be collected for this test prior to administration of either drug. ID Date Data Source [id number] 03/02/2020 07:49:00 AM EDT [facility] Name Value Range Interpretation Code Description Data Ana rce(s) Supporting Document(s) White Blood Count 3.5-10.5 Normal (applies to non-numeri c results) [facility] Red Blood Count 4.30-5.70 Normal (applies to non-numeric results) [facility] Hemoglobin 13.5-17.5 Normal (applies to non-numeric resul ts) [facility] Hematocrit 38.8-50.0 Normal (applies to non-numeric resul ts) [facility] Mean Corpuscular Volume 81.2-95.1 Normal (applies to non- numeric results) [facility] Mean Corpuscular Hgb 25.6-32.2 Normal (applies to non-num young results) [facility] Mean Corpuscular Hgb Conc 32.0-36.0 Normal (applies to no n-numeric results) [facility] Red Cell Distribution Width 11.8-15.6 Normal (appli es to non-numeric results) [facility] Platelet Count 146 x10 3/uL 150-450 Below low normal [facility] Mean Platelet Volume 9.4-12.4 Normal (applies to non-num young results) [facility] Neutrophils% (Auto) 31.0-71.0 Normal (applies to non-nume ava results) [facility] Lymphocytes% (Auto) 20.0-55.0 Normal (applies to non-nume ava results) [facility] Monocytes% (Auto) 4.0-12.0 Above high normal [facility] Eosinophils% (Auto) 1.0-8.0 Normal (applies to non-nume ava results) [facility] Basophils% (Auto) 0.0-2.0 Normal (applies to non-numeri c results) [facility] Immature Granulocytes% (Auto) 0.0-2.0 Normal (tong lies to non-numeric results) [facility] Neutrophils# (Auto) 1.50-6.20 Normal (applies to non-nume ava results) [facility] Lymphocytes# (Auto) 1.20-4.00 Below low normal [facility] Monocytes# (Auto) 0.00-0.90 Normal (applies to non-numeri c results) [facility] Eosinophils# (Auto) 0.00-0.50 Normal (applies to non-nume ava results) [facility] Basophils# (Auto) 0.00-0.20 Normal (applies to non-numeri c results) [facility] Immature Granulocytes# (Auto) 0.00-7.00 No rmal (applies to non-numeric results) [facility] ID Date Data Source [id number] 03/03/2020 07:02:00 PM EDT [facility] Name Value Range Interpretation Code Description Data [facility] rce(s) Supporting Document(s) Hepatitis A Ab,IgG result Normal (applies to no n-numeric results) [facility] Result indicates no past exposure or imm unity to hepatitis A infection. REFERENCE VALUE Unvaccinated: Negative Vaccinated: Positive Test Performed by: [place] [address] Calender Let Off Operator: Luis Alfredo Beck M.D. Ph.D.; CLIA# [id number] ID Date Data Source [id number] 03/03/2020 06:31:00 PM EDT [facility] Name Value Range Interpretation Code Description Data [facility] rce(s) Supporting Document(s) Hepatitis A Ab,IgG result Normal (applies to no n-numeric results) [facility] Result indicates no past exposure or imm unity to hepatitis A infection. REFERENCE VALUE Unvaccinated: Negative Vaccinated: Positive Test Performed by: [place] [address] [employer] Let Off Operator: Luis Alfredo Beck M.D. Ph.D.; CLIA# [id number] ID Date Data Source [id number] 03/01/2020 10:47:00 PM EDT [facility] Value Range Interpretation Code Description Data Ana rce(s) Supporting Document(s) CPK result 321 U/L 39-308 [facility] Test Performed By: [facility] [address] [place] [address] Director: Ana María Smith MD ID Date Data Source [id number] 03/01/2020 10:47:00 PM EDT [facility] Value Range Interpretation Code Description Data Ana rce(s) Supporting Document(s) Hepatitis C Virus Ab result Nonreactive Very abnormal (applies to non-numeric units [facility] Test Performed By: [place] [address] Director: Ana María Smith MD Results called 03/01/202240, WOO [place] read back information to Sherry Khan THIS IS A STATE REPORTABLE COMMUNICABLE DISEASE. MAYO read back critical information 03/01/202246 ASYA Note: This patient's sample tests reactive with a high Index >/= 11.00. Samples with high indexes have been shown to repeat positive using a different methodology 95% of the time or greater but <5 of every 100 samples might be false positives. Additional testing for verification of the result can be requested by the physician if necessary. ([facility] MMWR No RR-3. 2003). ID Date Data Source [id number] 03/01/2020 10:47:00 PM EDT [facility] Value Range Interpretation Code Description Data Ana rce(s) Supporting Document(s) Hep Bs Ag result T-Test Nonreactive Normal (applies to non -numeric results) [facility] Test Performed By: [facility] [address] [place] [address] Director: Ana María Smith MD ID Date Data Source [id number] 03/01/2020 10:47:00 PM EDT [facility] Value Range Interpretation Code Description Data Ana rce(s) Supporting Document(s) Syphilis Serology result Nonreactive Normal (applies to non-numeric results) [facility] Test Performed By: [facility] [address] [place] [address] Director: Ana María Smith MD ID Date Data Source [id number] 03/01/2020 10:44:00 PM EDT [facility] Test Performed By: [facility] [address] [place] [address] Director: Ana María Smith MD Test Performed By: [facility] [address] [place] [address] Director: Ana María Smith MD Name Value Range Interpretation Code Description Data Ana rce(s) Supporting Document(s) Hep C Ab-T Test Nonreactive [facility] Test Performed By: [place] [address] Director: Ana María Smith MD Results called 03/01/20 2241, WOO [place]O read back information to Sherry Khan THIS [...] be requested by the physician if necessary. ([facility] MMWR No RR-3. 2003). ID Date Data Source [id number] 03/01/2020 10:44:00 PM EDT [facility] Test Performed By: [facility] [address] [place] [address] Director: Ana María Simth MD Test Performed By: [place] [address] Director: Ana María Smith MD Name Value Range Interpretation Code Description Data Ana rce(s) Supporting Document(s) ID Date Data Source [id number] 03/01/2020 10:44:00 PM EDT [facility] Test Performed By: [facility] [address] [place] [address] Director: Ana María Smith MD Test [facility]: [facility] [address] [place] [address] Director: Ana María Smith MD Name Value Range Interpretation Code Description Data Ana rce(s) Supporting Document(s) ID Date Data Source [id number] 03/01/2020 09:59:00 PM EDT [facility] Name Value Range Interpretation Code Description Data Ana rce(s) Supporting Document(s) CPK 321 U/L 39-308 Above high normal [facility] Test Performed By: [facility] [address] [place] [address] Director: Ana María Smith MD ID Date Data Source [id number] 03/01/2020 04:30:00 PM EDT [facility] Name Value Range Interpretation Code Description Data Ana rce(s) Supporting Document(s) Sodium 129 mmol/L 136-145 Below low normal [facility]spital Potassium 3.5-5.1 Below low normal [facility] spital Chloride 93 mmol/L 98-107 Below low normal [facility] spital Carbon Dioxide CO2 21-32 Normal (applies to non-numer ic results) [facility] Anion Gap 5.0-16.0 Normal (applies to non-numeric resul ts) [facility] BUN 6 mg/dL 7-18 Below low normal [facility] spital Creatinine,Serum 0.8-1.5 Below low normal [facility] GFR >60 Normal (applies to non-numeric results) [facility] Glucose Level 108 mg/dL 60-99 Above high normal [facility] Reference range is only applicable when patient is fasting Note the following drug interference: Sulfasalazine Sulfapyridine Can see falsely depressed Can see falsely elevated result with up to 17% results with up to 11% decrease in measurement increase in measurement Recommend patients be collected for this test prior to administration of either drug. Calcium 8.5-10.1 Normal (applies to non-numeric resul ts) [facility] Bilirubin,Total 0.1-1.9 Normal (applies to non-numeric results) [facility] SGOT(AST) 88 U/L 15-37 Above high normal [facility] ospital Note the following drug interference: Sulfasalazine Sulfapyridine Can see falsely depressed Can see falsely elevated result with up to 10% results with up to 10% decrease in measurement increase in measurement Recommend patients be collected for this test prior to administration of either drug. SGPT(ALT) 115 U/L 12-78 Above high normal [facility] o[facility]ital Note the following drug interference: Sulfasalazine Sulfapyridine Can see falsely depressed Can see falsely elevated result with up to 29% results with up to 10% decrease in measurement increase in measurement Recommend patients be collected for this test prior to administration of either drug. Alkaline Phosphatase 72 U/L 38-126 Normal (applies to non-num young results) [facility] can increase Alkaline Phosp le vels up to 2 times the normal adult value. Normal values for children and adolescents are 2 to 3 times the normal adult value. Total Protein 6.0-8.2 Normal (applies to non-numeric re sults) [facility] Albumin Level 3.4-5.0 Normal (applies to non-numeric re sults) [facility] ID Date Data Source [id number] 03/01/2020 04:30:00 PM [facility] Value Range Interpretation Code Description Data Ana rce(s) Supporting Document(s) Bilirubin,Direct 0.05-0.20 Normal (applies to non-numeric results) [facility] ID Date Data Source [id number] 03/01/2020 04:30:00 PM [facility] Value Range Interpretation Code Description Data Ana rce(s) Supporting Document(s) Phosphorus 2.5-4.9 Normal (applies to non-numeric resul ts) [facility] ID Date Data Source [id number] 03/01/2020 04:30:00 PM [facility] Value Range Interpretation Code Description Data Ana rce(s) Supporting Document(s) Magnesium 1.8-2.4 Below low normal [facility] ID Date Data Source [id number] 03/01/2020 04:30:00 PM EDT [facility] Name Value Range Interpretation Code Description Data Ana rce(s) Supporting Document(s) Thyroid Stimulate Hormone TSH 0.358-3.74 No rmal (applies to non-numeric results) [facility] ID Date Data Source [id number] 03/01/2020 04:11:00 PM EDT [facility] Name Value Range Interpretation Code Description Data Ana rce(s) Supporting Document(s) Ethanol Less than 10.0 Above high normal [facility] ID Date Data Source [id number] 03/01/2020 03:56:00 PM EDT [facility] Name Value Range Interpretation Code Description Data Ana rce(s) Supporting Document(s) White Blood Count 3.5-10.5 Normal (applies to non-numeri c results) [facility] Red Blood Count 4.30-5.70 Normal (applies to non-numeric results) [facility] Hemoglobin 13.5-17.5 Normal (applies to non-numeric resul ts) [facility] Hematocrit 38.8-50.0 Normal (applies to non-numeric resul ts) [facility] Mean Corpuscular Volume 81.2-95.1 Normal (applies to non- numeric results) [facility] Mean Corpuscular Hgb 25.6-32.2 Above high normal [facility] Mean Corpuscular Hgb Conc 32.0-36.0 Normal (applies to no n-numeric results) [facility] Red Cell Distribution Width 11.8-15.6 Normal (appli es to non-numeric results) [facility] Platelet Count 151 x10 3/uL 150-450 Normal (applies to non-numeric results) [facility] Mean Platelet Volume 9.4-12.4 Normal (applies to non-num young results) [facility] Neutrophils% (Auto) 31.0-71.0 Normal (applies to non-nume ava results) [facility] Lymphocytes% (Auto) 20.0-55.0 Normal (applies to non-nume ava results) [facility] Monocytes% (Auto) 4.0-12.0 Normal (applies to non-numeri c results) [facility] Eosinophils% (Auto) 1.0-8.0 Normal (applies to non-nume ava results) [facility] Basophils% (Auto) 0.0-2.0 Normal (applies to non-numeri c results) [facility] Immature Granulocytes% (Auto) 0.0-2.0 Normal (tong lies to non-numeric results) [facility] Neutrophils# (Auto) 1.50-6.20 Normal (applies to non-nume ava results) [facility] Lymphocytes# (Auto) 1.20-4.00 Normal (applies to non-nume ava results) [facility] Monocytes# (Auto) 0.00-0.90 Normal (applies to non-numeri c results) [facility] Eosinophils# (Auto) 0.00-0.50 Normal (applies to non-nume ava results) [facility] Basophils# (Auto) 0.00-0.20 Normal (applies to non-numeri c results) [facility] Immature Granulocytes# (Auto) 0.00-7.00 No rmal (applies to non-numeric results) [facility] ID Date Data Source [id number] 03/03/2020 04:17:00 PM EDT [facility] Name Value Range Interpretation Code Description Data Ana e(s) Supporting Document(s) Chlamydia,Urine result Negative Normal (applies to non-n umeric results) [facility] Test Performed By: [facility] Laboratory [address] [place] [address] Director: Ana María Smith MD . GC Urine result Negative Normal (applies to non-numeric results) [facility] Test Performed By: [facility] [address] [place] [address] Director: Ana María Smith MD . Methodology: Second generation nucleic acid amplification. ID Date Data Source [id number] 03/03/2020 03:52:00 PM EDT [facility] Name Value Range Interpretation Code Description Data Ana rce(s) Supporting Document(s) Chlamydia,Urine Negative Normal (applies to non-numeric results) [facility] Test Performed By: [facility] [address] [place] [address] Director: Ana María Smith MD . GC Urine Negative Normal (applies to non-numeric resul ts) [facility] Test Performed By: [facility] [address] [place] [address] Director: Ana María Smith MD . Methodology: Second generation nucleic acid amplification. ID Date Data Source [id number] 03/01/2020 03:45:00 PM EDT [facility] Name Value Range Interpretation Code Description Data [facility] rce(s) Supporting Document(s) UDS Phencyclidine Screen Negative Normal (applies to non -numeric results) [facility] UDS Benzodiazepines Screen Negative Normal (applies to n on-numeric results) [facility] UDS Cocaine Screen Negative Normal (applies to non-numer ic results) [facility] UDS Ampetamine Screen Negative Normal (applies to non-nu meric results) [facility] UDS Cannabinoids Screen Negative [facility] UDS Opiates Screen Negative Normal (applies to non-numer ic results) [facility] UDS Barbiturates Screen Negative Normal (applies to non- numeric results) [facility] UDS Tricyclic Screen Negative Normal (applies to non-num young results) [facility] Therapeutic Drug Ranges for Emergency Threshold Levels [...] treatment purposes only. ID Date Data Source [id number] 03/01/2020 03:32:00 PM EDT [facility] Collected By: Nurse Name Value Range Interpretation Code Description Data Ana rce(s) Supporting Document(s) Color,Urine Colorl-Dk Y Normal (applies to non-numeric res ults) [facility] Clarity,Urine Clear Normal (applies to non-numeric re sults) [facility] Specific [place],Urine 1.005-1.030 Normal (applies to non- numeric results) [facility] pH,Urine 5.0-8.0 Normal (applies to non-numeric resul ts) [facility] Protein,Urine Negative Normal (applies to non-numeric re sults) [facility] Glucose,Urine Negative Normal (applies to non-numeric re sults) [facility] Ketones,Urine Negative Normal (applies to non-numeric re sults) [facility] Blood,Urine Negative Normal (applies to non-numeric resu lts) [facility] Bilirubin,Urine Negative Normal (applies to non-numeric results) [facility] Urobilinogen,Urine 0.2-1.0 Normal (applies to non-numer ic results) [facility] Leukocyte Esterase,Urine Negative Normal (applies to non -numeric results) [facility] Nitrite,Urine Negative Normal (applies to non-numeric re sults) [facility] ID Date Data Source [id number] 11/02/2019 07:18:00 AM EST [facility] Name Value Range Interpretation Code Description Data Ana rce(s) Supporting Document(s) Sodium 140 mmol/L 136-145 Normal (applies to non-numeric resul ts) [facility] Potassium 3.5-5.1 Normal (applies to non-numeric resul ts) [facility] Chloride 103 mmol/L 98-107 Normal (applies to non-numeric resul ts) [facility] Carbon Dioxide CO2 21-32 Normal (applies to non-numer ic results) [facility] Anion Gap 5.0-16.0 Normal (applies to non-numeric resul ts) [facility] BUN 7 mg/dL 7-18 Normal (applies to non-numeric results) [facility] Creatinine,Serum 0.8-1.5 Below low normal [facility] GFR >60 Normal (applies to non-numeric results) [facility] Glucose Level 96 mg/dL 60-99 Normal (applies to non-numeric re sults) [facility] Reference range is only applicable when patient is fasting Note the following drug interference: Sulfasalazine Sulfapyridine Can see falsely depressed Can see falsely elevated result with up to 17% results with up to 11% decrease in measurement increase in measurement Recommend patients be collected for this test prior to administration of either drug. Calcium 8.5-10.1 Normal (applies to non-numeric resul ts) [facility] ID Date Data Source [id number] 10/31/2019 07:41:00 AM EST [facility] Name Value Range Interpretation Code Description Data Ana rce(s) Supporting Document(s) Sodium 142 mmol/L 136-145 Normal (applies to non-numeric resul ts) [facility] Potassium 3.5-5.1 Normal (applies to non-numeric resul ts) [facility] Chloride 105 mmol/L 98-107 Normal (applies to non-numeric resul ts) [facility] Carbon Dioxide CO2 21-32 Normal (applies to non-numer ic results) [facility] Anion Gap 5.0-16.0 Normal (applies to non-numeric resul ts) [facility] BUN 6 mg/dL 7-18 Below low normal [facility] Creatinine,Serum 0.8-1.5 Below low normal [facility] GFR >60 Normal (applies to non-numeric results) [facility] Glucose Level 96 mg/dL 60-99 Normal (applies to non-numeric re sults) [facility] Reference range is only applicable when patient is fasting Note the following drug interference: Sulfasalazine Sulfapyridine Can see falsely depressed Can see falsely elevated result with up to 17% results with up to 11% decrease in measurement increase in measurement Recommend patients be collected for this test prior to administration of either drug. Calcium 8.5-10.1 Normal (applies to non-numeric resul ts) [facility] ID Date Data Source [id number] 10/31/2019 07:41:00 AM EST [facility] Name Value Range Interpretation Code Description Data Ana rce(s) Supporting Document(s) Magnesium 1.8-2.4 Below low normal [facility] spital ID Date Data Source [id number] 10/29/2019 03:17:00 PM EST [facility] Imaging Services Department Imaging Report [address] [place], [place] [address] %(RAD)[email or web address]..[email or web address]("line") Name: SIVA BENJAMIN : 1955 Age/Sex: 64M Ordering Provider: Amaya Bernabe MD Med Rec #: [id number] Reg Status: DIS IN Room #: 123-1 Date of Service: 10/29/19 Report Number: [id number] cc:Amaya Bernabe MD; PCP None Send Report To: [id number] XRP/XR Hand Lt Min 3 Views Reason [...] <Electronically signed by Win Valles MD> 11/02/19 165 Dictation Date/Time: 10/29/19 1403 Transcribed Date/Time: 10/29/19 1517 Butadiene Converter Helper: KAIDEN Name Value Range Interpretation Code Description [facility] Supporting Document(s) ID Date Data Source [id number] 10/28/2019 04:44:00 PM [facility] Collected By: Nurse's Aide Name Value Range Interpretation Code Description Data [facility] rce(s) Supporting Document(s) Color,Urine Colorl-Dk Y Normal (applies to non-numeric res ults) [facility] Clarity,Urine Clear Normal (applies to non-numeric re sults) [facility] Specific [place],Urine 1.005-1.030 Normal (applies to non- numeric results) [facility] pH,Urine 5.0-8.0 Normal (applies to non-numeric resul ts) [facility] Protein,Urine Negative Normal (applies to non-numeric re sults) [facility] Glucose,Urine Negative Normal (applies to non-numeric re sults) [facility] Ketones,Urine Negative Normal (applies to non-numeric re sults) [facility] Blood,Urine Negative Normal (applies to non-numeric resu lts) [facility] Bilirubin,Urine Negative Normal (applies to non-numeric results) [facility] Urobilinogen,Urine 0.2-1.0 Normal (applies to non-numer ic results) [facility] Leukocyte Esterase,Urine Negative Normal (applies to non -numeric results) [facility] Nitrite,Urine Negative Normal (applies to non-numeric re sults) [facility] ID Date Data Source [id number] 11/01/2019 12:56:00 PM [facility] Name Value Range Interpretation Code Description Data [facility] Supporting Document(s) Hepatitis A Ab,IgG result Normal (applies to no n-numeric results) [facility] Result indicates no past exposure or imm unity to hepatitis A infection. REFERENCE VALUE Unvaccinated: Negative Vaccinated: Positive Test Performed by: [facility] [place] [address] Calender Let Off Operator: Luis Alfredo Beck M.D. Ph.D.; CLIA# [id number] ID Date Data Source [id number] 11/01/2019 12:31:00 PM EST [facility] Name Value Range Interpretation Code Description Data Ana rce(s) Supporting Document(s) Hepatitis A Ab,IgG result Normal (applies to no n-numeric results) [facility] Result indicates no past exposure or imm unity to hepatitis A infection. REFERENCE VALUE Unvaccinated: Negative Vaccinated: Positive Test Performed by: [place] [address] Calender Let Off Operator: Luis Alfredo Beck M.D. Ph.D.; CLIA# [id number] ID Date Data Source [id number] 10/29/2019 03:18:00 PM [facility] Value Range Interpretation Code Description Data Ana rce(s) Supporting Document(s) Hepatitis C Virus Ab result Nonreactive Very abnormal (applies to non-numeric units [facility] Results called 10/28/19 225GIACOMO Mohr read back information to [facility] THIS IS A STATE REPORTABLE COMMUNICABLE [...] MMWR No RR-3. 2003). Test Performed By: [facility] [address] [place] [address] Director: Ana María Smith MD called to [email or web address] Jose ID Date Data Source [id number] 10/29/2019 03:18:00 PM [facility] Name Value Range Interpretation Code Description Data Ana rce(s) Supporting Document(s) Syphilis Serology result Nonreactive Normal (applies to non-numeric results) [facility] Test Performed By: [place] [address] Director: Ana María Smith MD ID Date Data Source [id number] 10/29/2019 03:18:00 PM [facility] Value Range Interpretation Code Description Data Ana rce(s) Supporting Document(s) CPK result 144 U/L 39-308 Normal (applies to non-numeric resul ts) [facility] Test Performed By: [place] [address] Director: Ana María Smtih MD ID Date Data Source [id number] 10/29/2019 03:18:00 PM [facility] Value Range Interpretation Code Description Data Ana rce(s) Supporting Document(s) Chlamydia,Urine result Negative Normal (applies to non-n umeric results) [facility] Test Performed By: [place] [address] Director: Ana María Smith MD . GC Urine result Negative Normal (applies to non-numeric results) [facility] Test Performed By: [place] [address] Director: Ana María Smith MD . Methodology: Second generation nucleic acid amplification. ID Date Data Source [id number] 10/29/2019 03:18:00 PM [facility] Value Range Interpretation Code Description Data Ana rce(s) Supporting Document(s) Hep Bs Ag result T-Test Nonreactive Normal (applies to non -numeric results) [facility] Test Performed By: [place] [address] Director: Ana María Smith MD ID Date Data Source [id number] 10/29/2019 02:54:00 PM EST [facility] Value Range Interpretation Code Description Data Ana rce(s) Supporting Document(s) Chlamydia,Urine Negative Normal (applies to non-numeric results) [facility] Test Performed By: [facility] [address] [place] [address] Director: Ana María Smith MD . GC Urine Negative Normal (applies to non-numeric resul ts) [facility] Test Performed By: [place] [address] Director: Ana María Smith MD . Methodology: Second generation nucleic acid amplification. ID Date Data Source [id number] 10/28/2019 11:25:00 PM EST [facility] Test Performed By: [place] [address] Director: Ana María Smith MD Test Performed By: [place] [address] Director: Ana María Smith MD Name Value Range Interpretation Code Description Data Ana rce(s) Supporting Document(s) Hep C Ab-T Test Nonreactive [facility] Results called 10/28/19 GIACOMO Leroy read back information to [facility] THIS IS A STATE REPORTABLE COMMUNICABLE DISEASE. [...] MMWR No RR-3. 2003). Test Performed By: [facility] [address] [place] [address] Director: Ana María Smith MD ID Date Data Source [id number] 10/28/2019 11:25:00 PM EST [facility] Test Performed By: [place] [address] Director: Ana María Smith MD Test Performed By: [place] [address] Director: Ana María Smith MD Name Value Range Interpretation Code Description Data Ana rce(s) Supporting Document(s) ID Date Data Source [id number] 10/28/2019 11:25:00 PM [facility] [address] [place] [address] Director: Ana María Smith MD Test Performed By: [facility] [address] [place] [address] Director: Ana María Smith MD Name Value Range Interpretation Code Description Data Ana rce(s) Supporting Document(s) ID Date Data Source [id number] 10/28/2019 10:15:00 PM [facility] Name Value Range Interpretation Code Description Data Ana rce(s) Supporting Document(s) CPK 144 U/L 39-308 Normal (applies to non-numeric resul ts) [facility] Test Performed By: [facility] Laboratory [address] [place] [address] Director: Ana María Smith MD ID Date Data Source [id number] 10/28/2019 04:48:00 PM [facility] Name Value Range Interpretation Code Description Data Ana rce(s) Supporting Document(s) Ethanol Less than 10.0 Above high normal [facility] ID Date Data Source [id number] 10/28/2019 04:48:00 PM [facility] Name Value Range Interpretation Code Description Data Ana rce(s) Supporting Document(s) Sodium 135 mmol/L 136-145 Below low normal [facility]ital Potassium 3.5-5.1 Normal (applies to non-numeric resul ts) [facility] Chloride 99 mmol/L 98-107 Normal (applies to non-numeric resul ts) [facility] Carbon Dioxide CO2 21-32 Normal (applies to non-numer ic results) [facility] Anion Gap 5.0-16.0 Normal (applies to non-numeric resul ts) [facility] BUN 5 mg/dL 7-18 Below low normal [facility] spital Creatinine,Serum 0.8-1.5 Below low normal [facility] GFR >60 Normal (applies to non-numeric results) [facility] Glucose Level 117 mg/dL 60-99 Above high normal [facility] Reference range is only applicable when patient is fasting Note the following drug interference: Sulfasalazine Sulfapyridine Can see falsely depressed Can see falsely elevated result with up to 17% results with up to 11% decrease in measurement increase in measurement Recommend patients be collected for this test prior to administration of either drug. Calcium 8.5-10.1 Below low normal [facility] spital Bilirubin,Total 0.1-1.9 Normal (applies to non-numeric results) [facility] SGOT(AST) 32 U/L 15-37 Normal (applies to non-numeric resul ts) [facility] Note the following drug interference: Sulfasalazine Sulfapyridine Can see falsely depressed Can see falsely elevated result with up to 10% results with up to 10% decrease in measurement increase in measurement Recommend patients be collected for this test prior to administration of either drug. SGPT(ALT) 23 U/L 12-78 Normal (applies to non-numeric resul ts) [facility] Note the following drug interference: Sulfasalazine Sulfapyridine Can see falsely depressed Can see falsely elevated result with up to 29% results with up to 10% decrease in measurement increase in measurement Recommend patients be collected for this test prior to administration of either drug. Alkaline Phosphatase 72 U/L 38-126 Normal (applies to non-num young results) [facility] can increase Alkaline Phosp le vels up to 2 times the normal adult value. Normal values for children and adolescents are 2 to 3 times the normal adult value. Total Protein 6.0-8.2 Normal (applies to non-numeric re sults) [facility] Albumin Level 3.4-5.0 Normal (applies to non-numeric re sults) [facility] ID Date Data Source [id number] 10/28/2019 04:48:00 PM EST [facility] Name Value Range Interpretation Code Description Data Ana rce(s) Supporting Document(s) Bilirubin,Direct 0.05-0.20 Normal (applies to non-numeric results) [facility] ID Date Data Source [id number] 10/28/2019 04:48:00 PM EST [facility] Name Value Range Interpretation Code Description Data Ana rce(s) Supporting Document(s) Phosphorus 2.5-4.9 Normal (applies to non-numeric resul ts) [facility] ID Date Data Source [id number] 10/28/2019 04:48:00 PM EST [facility] Name Value Range Interpretation Code Description Data Ana rce(s) Supporting Document(s) Magnesium 1.8-2.4 Normal (applies to non-numeric resul ts) [facility] ID Date Data Source [id number] 10/28/2019 04:48:00 PM EST [facility] Name Value Range Interpretation Code Description Data Ana rce(s) Supporting Document(s) Thyroid Stimulate Hormone TSH 0.358-3.74 No rmal (applies to non-numeric results) [facility] ID Date Data Source [id number] 10/28/2019 04:38:00 PM [facility] Name Value Range Interpretation Code Description Data Ana rce(s) Supporting Document(s) White Blood Count 3.5-10.5 Normal (applies to non-numeri c results) [facility] Red Blood Count 4.30-5.70 Normal (applies to non-numeric results) [facility] Hemoglobin 13.5-17.5 Normal (applies to non-numeric resul ts) [facility] Hematocrit 38.8-50.0 Normal (applies to non-numeric resul ts) [facility] Mean Corpuscular Volume 81.2-95.1 Normal (applies to non- numeric results) [facility] Mean Corpuscular Hgb 25.6-32.2 Normal (applies to non-num young results) [facility] Mean Corpuscular Hgb Conc 32.0-36.0 Normal (applies to no n-numeric results) [facility] Red Cell Distribution Width 11.8-15.6 Normal (appli es to non-numeric results) [facility] Platelet Count 208 x10 3/uL 150-450 Normal (applies to non-numeric results) [facility] Mean Platelet Volume 9.4-12.4 Below low normal [facility] Neutrophils% (Auto) 31.0-71.0 Normal (applies to non-nume ava results) [facility] Lymphocytes% (Auto) 20.0-55.0 Normal (applies to non-nume ava results) [facility] Monocytes% (Auto) 4.0-12.0 Normal (applies to non-numeri c results) [facility] Eosinophils% (Auto) 1.0-8.0 Below low normal [facility] Basophils% (Auto) 0.0-2.0 Normal (applies to non-numeri c results) [facility] Immature Granulocytes% (Auto) 0.0-2.0 Normal (tong lies to non-numeric results) [facility] Neutrophils# (Auto) 1.50-6.20 Normal (applies to non-nume ava results) [facility] Lymphocytes# (Auto) 1.20-4.00 Normal (applies to non-nume ava results) [facility] Monocytes# (Auto) 0.00-0.90 Normal (applies to non-numeri c results) [facility] Eosinophils# (Auto) 0.00-0.50 Normal (applies to non-nume ava results) [facility] Basophils# (Auto) 0.00-0.20 Normal (applies to non-numeri c results) [facility] Immature Granulocytes# (Auto) 0.00-7.00 No rmal (applies to non-numeric results) [facility] ID Date Data Source [id number] 10/28/2019 04:25:00 PM EST [facility] Name Value Range Interpretation Code Description Data Ana rce(s) Supporting Document(s) UDS Phencyclidine Screen Negative Normal (applies to non -numeric results) [facility] UDS Benzodiazepines Screen Negative Normal (applies to n on-numeric results) [facility] UDS Cocaine Screen Negative Normal (applies to non-numer ic results) [facility] UDS Ampetamine Screen Negative Normal (applies to non-nu meric results) [facility] UDS Cannabinoids Screen Negative [facility] UDS Opiates Screen Negative Normal (applies to non-numer ic results) [facility] UDS Barbiturates Screen Negative Normal (applies to non- numeric results) [facility] UDS Tricyclic Screen Negative Normal (applies to non-num young results) [facility] Therapeutic Drug Ranges for Emergency Threshold Levels [...] Current Smoker completed Curre nt Smoker eCW1 ([facility]) Smoking 01/20/2020 12:00:00 AM EDT Current Smoker completed Curre nt Smoker eCW1 ([facility]) Smoking 01/20/2020 12:00:00 AM EDT Current Smoker completed Curre nt Smoker eCW1 ([facility]) Vital Signs ID Date Data Source UNK Name Value Range Interpretation Code Description Data Source(s) Body weight 165.00 [lb_av] 165.00 [lb_av] MEDEN T ([facility]) Body temperature 98.0 [degF] 98.0 [degF] [facility] Respiratory rate 18 /min 18 /min [facility] ( [facility]) Heart rate 105 /min 105 /min [facility] ([facility]) Diastolic blood pressure 79 mm[Hg] 79 mm[Hg] MEDENT ([facility]) Systolic blood pressure 126 mm[Hg] 126 mm[Hg] M EDENT ([facility]) Diastolic blood pressure 80 mm[Hg] 80 mm[Hg] eCW1 ([facility]) Systolic blood pressure 140 mm[Hg] 140 mm[Hg] e CW1 ([facility]) Body temperature 97.8 [degF] 97.8 [degF] eCW1 ( [facility]) Respiratory rate 20 /min 20 /min eCW1 ([facility]) Heart rate 131 /min 131 /min eCW1 ([facility]) Body mass index (BMI) [Ratio] 26.25 kg/m2 26.25 kg/m2 W1 ([facility]) Body height 70 [in_us] 70 [in_us] eCW1 ([facility]) Body weight Measured 183 [lb_av] 183 [lb_av] eC W1 ([facility]) Diastolic blood pressure 78 mm[Hg] 78 mm[Hg] eCW1 ([facility]) Systolic blood pressure 156 mm[Hg] 156 mm[Hg] e CW1 ([facility]) Body temperature 96.3 [degF] 96.3 [degF] eCW1 ( [facility]) Respiratory rate 20 /min 20 /min eCW1 ([facility]) Heart rate 127 /min 127 /min eCW1 ([facility]) Body mass index (BMI) [Ratio] 25.95 kg/m2 25.95 kg/m2 eCW1 ([facility]) Body height 70 [in_us] 70 [in_us] eCW1 ([facility]) Body weight Measured 180.9 [lb_av] 180.9 [lb_av ] eCW1 ([facility]) ID Date Data Source [id number] 07/04/2020 02:42:[address] [facility] Name Value Range Interpretation Code Description Data Source(s) Weight (Calculated Kilograms) 76.20 76.20 [facility] Height (Calculated Centimeters) 177.8 177. 8 [facility] Body Mass Index (BMI) 24.0 24.0 [facility] ID Date Data Source [id number] 07/25/2020 07:57:00 AM EST Marcelina lenz Name Value Range Interpretation Code Description Data Source(s) Weight (Calculated Kilograms) 77.47 77.47 [facility] Weight 2732.8 2732.8 [facility] pital Temperature Source 7 7 [facility] 97.4 97.4 [facility] Res[facility] Eff[facility] 1 1 [facility] Respiratory Rate 18 18 [facility] Pulse Assessment Method 4 4 [facility] Pulse Rate 102 102 [facility] pital Height (Calculated Centimeters) 177.8 177. 8 [facility] Height 70 70 [facility] pital Blood Pressure 139/77 139/77 [facility] Body Mass Index (BMI) 24.5 24.5 [facility] Weight (Calculated Kilograms) 77.47 77.47 [facility] Weight 2732.8 2732.8 [facility] pital Temperature Source 7 7 [facility] Temperature 97.4 97.4 [facility] Res[facility] Effort 1 1 [facility] Respiratory Rate 18 18 [facility] Pulse Assessment Method 4 4 [facility] Pulse Rate 102 102 [facility] pital Height (Calculated Centimeters) 177.8 177. 8 [facility] 70 [facility] 139/77 139/77 [facility] Body Mass Index (BMI) 24.5 24.5 [facility] Weight (Calculated Kilograms) 77.47 77.47 [facility] Weight 2732.8 2732.8 [facility] pital Temperature Source 7 7 [facility] Temperature 97.4 97.4 [facility] Respiratory Effort 1 1 [facility] Respiratory Rate 18 18 [facility] Pulse Assessment Method 4 4 [facility] Pulse Rate 102 102 [facility] pital Height (Calculated Centimeters) 177.8 177. 8 [facility] Height 70 70 [facility] pital Blood Pressure 139/77 139/77 [facility] Body Mass Index (BMI) 24.5 24.5 [facility] Weight (Calculated Kilograms) 77.47 77.47 [facility] Weight 2732.8 2732.8 [facility] pital Temperature Source 7 7 [facility] Temperature 97.4 97.4 [facility] Respiratory Effort 1 1 [facility] Respiratory Rate 18 18 [facility] Pulse Assessment Method 4 4 [facility] Pulse Rate 102 102 [facility] pital Height (Calculated Centimeters) 177.8 177. 8 [facility] Height 70 70 [facility] pital Blood Pressure 139/77 139/77 [facility] Body Mass Index (BMI) 24.5 24.5 [facility] Weight (Calculated Kilograms) 77.47 77.47 [facility] Weight 2732.8 2732.8 [facility] pital Temperature Source 7 7 [facility] Temperature 97.7 97.7 [facility] spital Respiratory Effort 1 1 [facility] Respiratory Rate 18 18 [facility] Pulse Assessment Method 4 4 [facility] Pulse Rate 89 89 [facility] pital Height (Calculated Centimeters) 177.8 177. 8 [facility] Height 70 70 [facility] pital Blood Pressure 159/87 159/87 [facility] Body Mass Index (BMI) 24.5 24.5 [facility] Weight (Calculated Kilograms) 77.47 77.47 [facility] Weight 2732.8 2732.8 [facility] pital Temperature Source 7 7 [facility] Temperature 97 97 [facility] spital Respiratory Effort 1 1 [facility] Respiratory Rate 18 18 [facility] Pulse Assessment Method 4 4 [facility] Pulse Rate 78 78 [facility] pital Height (Calculated Centimeters) 177.8 177. 8 [facility] Height 70 70 [facility] Blood Pressure 161/81 161/81 [facility] Body Mass Index (BMI) 24.5 24.5 [facility] Weight (Calculated Kilograms) 79.02 79.02 [facility] Height (Calculated Centimeters) 177.8 177. 8 [facility] Body Mass Index (BMI) 25.0 25.0 [facility] ID Date Data Source [id number] 03/03/2020 06:31:00 PM EDT [facility] Name Value Range Interpretation Code Description Data Source(s) Weight (Calculated Kilograms) 76.20 76.20 [facility] Height (Calculated Centimeters) 177.8 177. 8 [facility] Body Mass Index (BMI) 24.0 24.0 [facility] ID Date Data Source [id number] 03/07/2020 12:02:00 AM EDT [facility] spital Name Value Range Interpretation Code Description Data Source(s) Weight Measurement Method 1 1 [facility] Weight (Calculated Kilograms) 79.02 79.02 [facility] Weight 2787.2 2787.2 [facility] pital Temperature Source 7 7 [facility] Temperature 98 98 [facility] spital Respiratory Effort 1 1 [facility] Respiratory Rate 18 18 [facility] Pulse Assessment Method 4 4 [facility] Pulse Rate 97 97 [facility] pital Height (Calculated Centimeters) 177.8 177. 8 [facility] Height 70 70 [facility] Blood Pressure 138/75 138/75 [facility] Body Mass Index (BMI) 25.0 25.0 [facility] Weight Measurement Method 1 1 [facility] Weight (Calculated Kilograms) 79.02 79.02 [facility] Weight 2787.2 2787.2 [facility] pital Temperature Source 7 7 [facility] Temperature 98 98 [facility] spital Respiratory Effort 1 1 [facility] Respiratory Rate 18 18 [facility] Pulse Assessment Method 4 4 [facility] Pulse Rate 97 97 [facility] pital Height (Calculated Centimeters) 177.8 177. 8 [facility] Height 70 70 [facility] Blood Pressure 138/75 138/75 [facility] Body Mass Index (BMI) 25.0 25.0 [facility] Weight Measurement Method 1 1 [facility] Weight (Calculated Kilograms) 79.02 79.02 [facility] Weight 2787.2 2787.2 [facility] pital Temperature Source 7 7 [facility] Temperature 98 98 [place] [facility] Respiratory Effort 1 1 [facility] Respiratory Rate 18 18 [facility] Pulse Assessment Method 4 4 [facility] Pulse Rate 97 97 [facility] pital Height (Calculated Centimeters) 177.8 177. 8 [facility] Height 70 70 [facility] pital Blood Pressure 138/75 138/75 [facility] Body Mass Index (BMI) 25.0 25.0 [facility] Weight Measurement Method 1 1 [facility] Weight (Calculated Kilograms) 79.02 79.02 [facility] Weight 2787.2 2787.2 [facility] pital Temperature Source 7 7 [facility] Temperature 98.1 98.1 [facility] spital Respiratory Effort 1 1 [facility] Respiratory Rate 18 18 [facility] Pulse Assessment Method 4 4 [facility] Pulse Rate 85 85 [facility] pital Height (Calculated Centimeters) 177.8 177. 8 [facility] Height 70 70 [facility] pital Blood Pressure 131/84 131/84 [facility] Body Mass Index (BMI) 25.0 25.0 [facility] Weight Measurement Method 1 1 [facility] Weight (Calculated Kilograms) 79.02 79.02 [facility] Weight 2787.2 2787.2 [facility] pital Temperature Source 1 1 [facility] Temperature 99.0 99.0 [facility] Respiratory Effort 1 1 [facility] Respiratory Rate 20 20 [facility] Pulse Assessment Method 4 4 [facility] Pulse Rate 86 86 [facility] pital Height (Calculated Centimeters) 177.8 177. 8 [facility] Height 70 70 [facility] pital Blood Pressure 124/77 124/77 [facility] Body Mass Index (BMI) 25.0 25.0 [facility] Weight (Calculated Kilograms) 79.10 79.10 [facility] Height (Calculated Centimeters) 177.8 177. 8 [facility] Body Mass Index (BMI) 25.0 25.0 [facility] ID Date Data Source [id number] 11/01/2019 12:31:00 PM EST [facility] Name Value Range Interpretation Code Description Data Source(s) Weight (Calculated Kilograms) 76.20 76.20 [facility] Height (Calculated Centimeters) 177.8 177. 8 [facility] Body Mass Index (BMI) 24.0 24.0 [facility] Hospital ID Date Data Source [id number] 11/03/2019 03:30:00 AM EST [facility] spital Name Value Range Interpretation Code Description Data Source(s) Weight Measurement Method 1 1 [facility] Weight (Calculated Kilograms) 79.10 79.10 [facility] Weight 2790 2790 [facility] pital Temperature Source 7 7 [facility] Temperature 97.8 97.8 [facility] spital Respiratory Effort 1 1 [facility] Respiratory Rate 20 20 [facility] Pulse Assessment Method 1 1 [facility] Pulse Rate 74 74 [facility] pital Height (Calculated Centimeters) 177.8 177. 8 [facility] Height 70 70 [facility] Blood Pressure 139/80 139/80 [facility] Body Mass Index (BMI) 25.0 25.0 [facility] Weight Measurement Method 1 1 [facility] Weight (Calculated Kilograms) 79.10 79.10 [facility] Weight 2790 2790 [facility] pital Temperature Source 7 7 [facility] Temperature 97.8 97.8 [facility] spital Respiratory Effort 1 1 [facility] Respiratory Rate 20 20 [facility] Pulse Assessment Method 1 1 [facility] Pulse Rate 74 74 [facility] pital Height (Calculated Centimeters) 177.8 177. 8 [facility] Height 70 70 [facility] Blood Pressure 139/80 139/80 [facility] Body Mass Index (BMI) 25.0 25.0 [facility] Weight Measurement Method 1 1 [facility] Weight (Calculated Kilograms) 79.10 79.10 [facility] Weight 2790 2790 [facility] pital Temperature Source 7 7 [facility] Temperature 97.8 97.8 [place] [facility] Respiratory Effort 1 1 [facility] Respiratory Rate 20 20 [facility] Pulse Assessment Method 1 1 [facility] Pulse Rate 74 74 [facility] pital Height (Calculated Centimeters) 177.8 177. 8 [facility] Height 70 70 [facility] pital Blood Pressure 139/80 139/80 [facility] Body Mass Index (BMI) 25.0 25.0 [facility] Weight Measurement Method 1 1 [facility] Weight (Calculated Kilograms) 79.10 79.10 [facility] Weight 2790 2790 [facility] pital Temperature Source 1 1 [facility] 98.3 98.3 [facility] Respiratory Effort 1 1 [facility] Respiratory Rate 18 18 [facility] Pulse Assessment Method 4 4 [facility] Pulse Rate 83 83 [facility] pital Height (Calculated Centimeters) 177.8 177. 8 [facility] Height 70 70 [facility] pital Blood Pressure 147/83 147/83 [facility] Body Mass Index (BMI) 25.0 25.0 [facility] Weight Measurement Method 1 1 [facility] Weight (Calculated Kilograms) 79.10 79.10 [facility] Weight 2790 2790 [facility] pital Temperature Source 1 1 [facility] Temperature 98.3 98.3 [facility] Respiratory Effort 1 1 [facility] Respiratory Rate 18 18 [facility] Pulse Assessment Method 4 4 [facility] Pulse Rate 83 83 [facility] pital Height (Calculated Centimeters) 177.8 177. 8 [facility] Height 70 70 [facility] pital Blood Pressure 147/83 147/83 [facility] Body Mass Index (BMI) 25.0 25.0 [facility] Weight Measurement Method 1 1 [facility] Weight (Calculated Kilograms) 79.10 79.10 [facility] Weight 2790 2790 [facility] Temperature Source 7 7 [facility] Temperature 98.3 98.3 [facility] spital Respiratory Effort 1 1 [facility] Respiratory Rate 18 18 [facility] Pulse Assessment Method 4 4 [facility] Pulse Rate 87 87 [facility] Height (Calculated Centimeters) 177.8 177. 8 [facility] Height 70 70 [facility] Blood Pressure 154/84 154/84 [facility] Body Mass Index (BMI) 25.0 25.0 [facility]
--- NOTE | 2020-10-05 12:02 | REP ---
INDICATION: left rib pain after fall. COMPARISON: Chest 06/11/2017. TECHNIQUE: Four views left ribs with frontal view of chest. FINDINGS: There are fractures of the posterolateral left 6th, 7th and 8th ribs, with minimal displacement at the 6th and 7th rib fractures. There is no evidence of pneumothorax, pleural effusion or infiltrate. Heart mediastinum are unremarkable. There is calcification of the thoracic aorta. A plate and screws are seen in the lower cervical spine. IMPRESSION: Slightly displaced fractures of posterolateral left 6th and 7th ribs with nondisplaced fracture left 8th rib. <Electronically signed by Henrique Lamb > 10/05/20 1972
[2020-10-05] MEDS ORDERED: ACET1TAB16 PO (12:56)
[2020-10-05] MEDS ORDERED: LIDO5DIS41 TD (12:56)
[2020-10-05] MEDS ORDERED: ACETAMINOPH W/CODEINE #3 TAB UD PO ONE (13:00)
[2020-10-05] MEDS ORDERED: LIDOCAINE 5% (LIDODERM) PATCH TD ONE (13:00)
[2020-10-05 13:05] VITALS: BP 169/94
[2020-10-05] MEDS ORDERED: **NOTE PATIENT COMMENT** MISC XX SCH (21:00)
== END 2020-10-05 13:06 | disposition home or self-care (01) ==
LOC: M ED 10:37
DX: S22.42XA Multiple fractures of ribs, left side, initial encounter for closed fracture (principal); W10.8XXA Fall (on) (from) other stairs and steps, initial encounter; Y92.019 Unspecified place in single-family (private) house as the place of occurrence of the external cause; Y93.9 Activity, unspecified; Y99.9 Unspecified external cause status; I10 Essential (primary) hypertension; J44.9 Chronic obstructive pulmonary disease, unspecified; K21.9 Gastro-esophageal reflux disease without esophagitis; Z79.899 Other long term (current) drug therapy

== ENCOUNTER → 2020-12-06 | Outpatient (REF) | payer SELFPAY ==
[~2020-12-06] MED LIST changes: +ACET1TAB16 PO; +AMLO1TAB25; +ANOR1AER; +FLUTISP; +LIDO5DIS41 TD; +TRAZ-189
[2020-12-06 16:37] LABS: HEMATOCRIT 49.9 % (42.0-52.0); HEMOGLOBIN 17.2 g/dl (13.5-17.5); MEAN CORPUSCULAR HEMOGLOBIN 32.3 pg (27.0-33.0); MEAN CORPUSCULAR HGB CONC 34.5 g/dl (32.0-36.5); MEAN CORPUSCULAR VOLUME 93.8 fl (80.0-96.0); PLATELET COUNT, AUTOMATED 237 10^3/uL (150-450); RED BLOOD COUNT 5.32 10^6/uL (4.30-6.10); WHITE BLOOD COUNT 6.6 10^3/uL (4.0-10.0)
[2020-12-06 17:03] LABS: ALBUMIN 4.2 GM/DL (3.2-5.2); ALT/SGPT 52 U/L (12-78); BILIRUBIN,TOTAL 0.4 MG/DL (0.2-1.0); BLOOD UREA NITROGEN 4 MG/DL (7-18); CALCIUM LEVEL 9.3 MG/DL (8.8-10.2); CARBON DIOXIDE LEVEL 27 MEQ/L (21-32); CHLORIDE LEVEL 98 MEQ/L (98-107); CREATININE FOR GFR 0.64 MG/DL (0.70-1.30); FREE T4 0.98 NG/DL (0.76-1.46); GLOMERULAR FILTRATION RATE > 60.0 (>49); GLUCOSE, FASTING 94 MG/DL (70-100); LIPASE 167 U/L (73-393); POTASSIUM SERUM 4.6 MEQ/L (3.5-5.1); SODIUM LEVEL 132 MEQ/L (136-145); TOTAL PROTEIN 8.2 GM/DL (6.4-8.2)
[2020-12-06 17:06] LABS: FOLATE > 24.0 NG/ML (>5.4); VITAMIN B12 LEVEL 468 PG/ML (247-911)
== END ==
LOC: M SFHCADAM 15:03
PROVIDERS: ATTEND Family Medicine
DX: R19.7 Diarrhea, unspecified (principal); R63.4 Abnormal weight loss; Z12.5 Encounter for screening for malignant neoplasm of prostate; F10.10 Alcohol abuse, uncomplicated; R10.13 Epigastric pain; B19.20 Unspecified viral hepatitis C without hepatic coma

== ENCOUNTER → 2021-01-16 | Outpatient (CLI) | payer OTHER ==
--- NOTE | 2021-01-16 10:10 | REP ---
INDICATION: CIRRHOSIS OF LIVER, LEFT SIDED ABD PAIN. COMPARISON: None. TECHNIQUE: Right upper quadrant sonography. FINDINGS: Scanning through the right upper quadrant of the abdomen demonstrates a normal sized, thin-walled gallbladder without evidence of stone or polyp. Common bile duct is normal measuring 0.65 cm in greatest diameter. No focal liver lesion is seen. Liver size is normal. No pancreatic abnormality is observed. No right renal abnormality is seen. There is no evidence of ascites. The right kidney measures 12.9 x 6.3 x 4.5 cm. IMPRESSION: CBD near the upper range of normal. Otherwise negative right upper quadrant sonography.. <Electronically signed by Jose Hitchcock > 01/16/21 [id number]
== END ==
LOC: M RAD 07:03
PROVIDERS: ATTEND Family Medicine
DX: K74.60 Unspecified cirrhosis of liver (principal); R10.9 Unspecified abdominal pain

== ENCOUNTER → 2021-02-01 | Outpatient (REF) | payer OTHER | LOC: M SFHCADAM 15:37 | PROVIDERS: ATTEND Family Medicine | DX: R19.7 Diarrhea, unspecified (principal) ==

== ENCOUNTER → 2021-02-01 | Outpatient (CLI) | payer OTHER ==
[~2021-02-01] MED LIST changes: +GASTROGRAFIN SOLUTION 30ML (Q9963) As Ordered ONE; +ISOVUE-370 76% 100ML VIAL As Ordered ONE
--- NOTE | 2021-02-02 02:28 | REP ---
INDICATION: ABN WEIGHT LOSS , ABD PAIN. COMPARISON: 11/18/2018 TECHNIQUE: Axial contrast-enhanced images from the lung bases to the pubic symphysis using oral and 100 cc Isovue 370 intravenous contrast material. . This CT examination was performed using the following dose reduction techniques: Automated exposure control, adjustment of mA and/or kv according to the patient's size, and the use of iterative reconstruction technique. FINDINGS: Liver demonstrates mild fatty infiltration without focal hepatic lesion. The spleen, pancreas, gallbladder, bilateral adrenal glands and kidneys are normal. Evaluation of the enteric system is limited by incomplete intraluminal contrast opacification. However no obvious acute inflammatory process or obstruction is appreciated. No free air to suggest perforation. Pelvis demonstrates normal bladder and age-appropriate prostate/seminal vesicles. Surgical clips are identified within the mid pelvis and right hemipelvis likely related to prior appendectomy. No ascites. No free air. No intraperitoneal or retroperitoneal adenopathy. Atherosclerotic changes to the aorta and vasculature without aneurysm or dissection. Musculoskeletal structures are intact and without acute osseous abnormality. IMPRESSION: No acute abdominopelvic pathology appreciated. <Electronically signed by Odilon Perez > 02/02/21 [id number]
== END ==
LOC: M RAD 15:48
PROVIDERS: ATTEND Family Medicine
DX: R13.10 Dysphagia, unspecified (principal); R63.4 Abnormal weight loss; R10.9 Unspecified abdominal pain
CPT/HCPCS: 74177; Q9963; Q9967

== ENCOUNTER 2021-06-10 16:19 | Emergency (ER) | payer OTHER ==
[~2021-06-10] VITALS: Ht 177.8 cm; Wt 77.0 kg
[~2021-06-10 16:19] MED LIST changes: -GASTROGRAFIN SOLUTION 30ML (Q9963) As Ordered ONE; -ISOVUE-370 76% 100ML VIAL As Ordered ONE
[2021-06-10 17:47] LABS: BASO # 0.1 10^3/uL (0.0-0.2); BASO % 0.8 % (0.0-1.0); EOS % 0.4 % (0.0-3.0); HEMATOCRIT 48.7 % (42.0-52.0); HEMOGLOBIN 17.3 g/dl (13.5-17.5); LYMPH # 1.3 10^3/uL (1.5-5.0); LYMPH % 12.2 % (24.0-44.0); MEAN CORPUSCULAR HGB CONC 35.5 g/dl (32.0-36.5); MEAN CORPUSCULAR VOLUME 92.9 fl (80.0-96.0); MONO # 0.7 10^3/uL (0.0-0.8); MONO % 6.3 % (2.0-8.0); NEUTROPHILS # 8.2 10^3/uL (1.5-8.5); NEUTROPHILS % 79.4 % (36.0-66.0); PLATELET COUNT, AUTOMATED 198 10^3/uL (150-450); RED BLOOD COUNT 5.24 10^6/uL (4.30-6.10); WHITE BLOOD COUNT 10.3 10^3/uL (4.0-10.0)
--- NOTE | 2021-06-10 17:56 | REP ---
INDICATION: Drug Overdose. COMPARISON: 10/05/2020 TECHNIQUE: Portable FINDINGS: The technique utilized in obtaining the radiograph has magnified the cardiac silhouette and accentuated the interstitial markings. The cardiomediastinal silhouette is within normal limits and essentially unchanged from the prior exam. The lung collins are clear and stable. No acute patchy parenchymal opacities or pleural effusions have developed. The pleural angles are again seen to be sharp. Previously described left rib fractures are seen with callus formation in a limited fashion. IMPRESSION: There is no acute cardiopulmonary disease. <Electronically signed by Willis Romero > 06/10/21 [id number]
--- NOTE | 2021-06-10 17:56 | REPVR ---
PROCEDURE INFORMATION: Exam: CT Head Without Contrast Exam date and time: 06/10/2021 5:08 PM Age: 65 years old Clinical indication: Altered mental status/memory loss; Additional info: Drug overdose TECHNIQUE: Imaging protocol: Computed tomography of the head without contrast. Radiation optimization: All CT scans at this facility use at least one of these dose optimization techniques: automated exposure control; mA and/or kV adjustment per patient size (includes targeted exams where dose is matched to clinical indication); or iterative reconstruction. COMPARISON: CT Head without contrast 05/14/2019 5:15 PM FINDINGS: Brain: The brain demonstrates mild generalized volume loss. Hypodensity in the deep white matter most likely represents chronic small vessel ischemic change. 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 Cerebral ventricles: The ventricles are stable, mildly enlarged in keeping with volume loss. Paranasal sinuses: Visualized sinuses are unremarkable. No fluid levels. Mastoid air cells: Visualized mastoid air cells are well aerated. Orbital cavity: Punctate calcification at the left optic nerve head consistent with drusen. Vasculature: The intracranial arterial and venous vasculature appears somewhat diffusely dense probably reflecting hemoconcentration/dehydration. Bones/joints: Unremarkable. No acute fracture. Soft tissues: Unremarkable. IMPRESSION: 1. No acute intracranial abnormality seen. 2. No evolving transcortical infarct or intracranial hemorrhage seen. 3. Increased density of the vasculature probably reflecting hemoconcentration/dehydration. Electronically signed by: Uma Bustillo On 06/10/2021 17:55:51 PM
[2021-06-10 18:18] LABS: CK-MB VALUE MASS 2.2 NG/ML (<3.6); MB/CK RELATIVE INDEX 1.42 (< OR =4); TROPONIN I 0.11 NG/ML (< 0.10)
[2021-06-10 18:30] LABS: ACETAMINOPHEN LEVEL < 2.0 UG/ML (10.0-30.0); ALBUMIN 3.9 GM/DL (3.2-5.2); ALT/SGPT 43 U/L (12-78); BILIRUBIN,DIRECT 0.2 MG/DL (0.0-0.2); BILIRUBIN,TOTAL 0.5 MG/DL (0.2-1.0); BLOOD UREA NITROGEN 3 MG/DL (7-18); CALCIUM LEVEL 8.3 MG/DL (8.8-10.2); CARBON DIOXIDE LEVEL 26 MEQ/L (21-32); CHLORIDE LEVEL 95 MEQ/L (98-107); CPK CREATINE PHOSPHOKINASE 159 U/L (39-308); CREATININE FOR GFR 0.85 MG/DL (0.70-1.30); ETHYL ALCOHOL (ETHANOL) 0.189 % (0.000-0.010); GLOMERULAR FILTRATION RATE > 60.0 (>49); GLUCOSE, FASTING 146 MG/DL (70-100); POTASSIUM SERUM 4.1 MEQ/L (3.5-5.1); SALICYLATE LEVEL 5.9 MG/DL (5.0-30.0); SODIUM LEVEL 130 MEQ/L (136-145); TOTAL PROTEIN 8.1 GM/DL (6.4-8.2)
[2021-06-10 21:00] LABS: AMPHETAMINES LEVEL URINE NEGATIVE (NEGATIVE); BARBITURATES URINE NEGATIVE (NEGATIVE); BENZODIAZEPINES URINE NEGATIVE (NEGATIVE); CANNABINOIDS URINE POSITIVE (NEGATIVE); COCAINE METABOLITE URINE NEGATIVE (NEGATIVE); METHADONE URINE NEGATIVE (NEGATIVE); OPIATES URINE POSITIVE (NEGATIVE); PHENCYCLIDINE URINE NEGATIVE (NEGATIVE)
[2021-06-10 21:20] LABS: CK-MB VALUE MASS 3.9 NG/ML (<3.6); MB/CK RELATIVE INDEX 1.48 (< OR =4); TROPONIN I 0.36 NG/ML (< 0.10)
[2021-06-10 22:03] VITALS: BP 146/82
--- NOTE | 2021-06-11 05:58 | ECGEPIP ---
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
--- NOTE | 2021-06-11 06:01 | ECGEPIP ---
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
== END 2021-06-10 22:23 | disposition left against medical advice (07) ==
LOC: M ED 16:19
DX: T40.1X1A Poisoning by heroin, accidental (unintentional), initial encounter (principal); F11.20 Opioid dependence, uncomplicated; F10.20 Alcohol dependence, uncomplicated; I45.10 Unspecified right bundle-branch block; J44.9 Chronic obstructive pulmonary disease, unspecified; B18.2 Chronic viral hepatitis C; K74.60 Unspecified cirrhosis of liver; R74.8 Abnormal levels of other serum enzymes; Z53.20 Procedure and treatment not carried out because of patient's decision for unspecified reasons

== ENCOUNTER 2021-06-23 07:38 | Emergency (ER) | payer OTHER ==
[~2021-06-23] VITALS: Ht 177.8 cm; Wt 72.7 kg
[2021-06-23 07:41] VITALS: BP 99/66
[2021-06-23] MEDS ORDERED: AMOX500C PO (07:59)
== END 2021-06-23 08:20 | disposition home or self-care (01) ==
LOC: M ED 07:38
DX: K08.89 Other specified disorders of teeth and supporting structures (principal); J44.9 Chronic obstructive pulmonary disease, unspecified; I10 Essential (primary) hypertension; F17.200 Nicotine dependence, unspecified, uncomplicated; F10.10 Alcohol abuse, uncomplicated

== ENCOUNTER → 2021-07-13 | Outpatient (REF) | payer OTHER ==
[~2021-07-13] MED LIST changes: +AMOX500C PO
[2021-07-13 15:33] LABS: CLOSTRIDIUM DIFFICILE PCR NEGATIVE (NEGATIVE)
== END ==
LOC: M LAB REF 13:08
PROVIDERS: ATTEND Internal Medicine Gastroenterology
DX: R19.7 Diarrhea, unspecified (principal)

== ENCOUNTER → 2021-08-24 | Outpatient (CLI) | payer OTHER ==
--- NOTE | 2021-08-26 18:41 | REP ---
INDICATION: SMOKER COMPARISON: 01/14/2019 TECHNIQUE: Axial noncontrast images from the thoracic inlet to the upper abdomen using low-dose lung screening technique (LDCT). FINDINGS: Moderate emphysematous changes with minimal scattered scarring and mild bronchiectasis noted. Few calcified nodules are again identified. No acute consolidation, suspicious nodule or mass. No effusion. No pneumothorax. IMPRESSION: Lung-RADS category 2. Evidence for prior granulomatous disease again noted. Management recommendations include annual low-dose CT surveillance. <Electronically signed by Odilon Perez > 08/26/21 [id number]
== END ==
LOC: M RAD 12:54
PROVIDERS: ATTEND Family Medicine
DX: Z12.2 Encounter for screening for malignant neoplasm of respiratory organs (principal); J43.9 Emphysema, unspecified; R91.8 Other nonspecific abnormal finding of lung field; Z72.0 Tobacco use

== ENCOUNTER → 2021-11-21 | Outpatient (REF) | payer OTHER ==
[2021-11-21 13:20] LABS: HEMATOCRIT 46.4 % (42.0-52.0); MEAN CORPUSCULAR HEMOGLOBIN 32.3 pg (27.0-33.0); MEAN CORPUSCULAR HGB CONC 34.5 g/dl (32.0-36.5); MEAN CORPUSCULAR VOLUME 93.7 fl (80.0-96.0); PLATELET COUNT, AUTOMATED 237 10^3/uL (150-450); RED BLOOD COUNT 4.95 10^6/uL (4.30-6.10); WHITE BLOOD COUNT 5.8 10^3/uL (4.0-10.0)
[2021-11-21 13:29] LABS: INR 0.96; PROTHROMBIN TIME 13.2 SECONDS (12.7-14.5)
[2021-11-21 14:05] LABS: ALBUMIN 4.1 GM/DL (3.2-5.2); ALT/SGPT 28 U/L (12-78); BILIRUBIN,TOTAL 0.3 MG/DL (0.2-1.0); BLOOD UREA NITROGEN 4 MG/DL (7-18); CALCIUM LEVEL 9.2 MG/DL (8.8-10.2); CARBON DIOXIDE LEVEL 26 MEQ/L (21-32); CHLORIDE LEVEL 99 MEQ/L (98-107); CHOLESTEROL LEVEL 149 MG/DL (<200); CHOLESTEROL RISK RATIO 4.138 (<5); CREATININE FOR GFR 0.78 MG/DL (0.70-1.30); GLOMERULAR FILTRATION RATE > 60.0 (>49); GLUCOSE, FASTING 95 MG/DL (70-100); HDL CHOLESTEROL 36 MG/DL (>40); LDL CHOLESTEROL 81 MG/DL (<100); NON-HDL-C 113 MG/DL; POTASSIUM SERUM 4.9 MEQ/L (3.5-5.1); SODIUM LEVEL 131 MEQ/L (136-145); TOTAL PROTEIN 8.1 GM/DL (6.4-8.2); TRIGLYCERIDES LEVEL 159 MG/DL (<150)
== END ==
LOC: M SFHCADAM 09:19
PROVIDERS: ATTEND Family Medicine
DX: J44.9 Chronic obstructive pulmonary disease, unspecified (principal); K74.60 Unspecified cirrhosis of liver; Z12.5 Encounter for screening for malignant neoplasm of prostate

== ENCOUNTER → 2021-11-21 | Outpatient (CLI) | payer OTHER | LOC: M ADAMS 09:25 | PROVIDERS: ATTEND Family Medicine | DX: M47.812 Spondylosis without myelopathy or radiculopathy, cervical region (principal); M48.04 Spinal stenosis, thoracic region; M48.02 Spinal stenosis, cervical region; Z98.1 Arthrodesis status; M25.78 Osteophyte, vertebrae ==

== ENCOUNTER → 2022-01-16 | Outpatient (CLI) | payer OTHER ==
[~2022-01-16] MED LIST changes: -ACET1TAB16 PO; +ACET300T48 PO
== END ==
LOC: M PLAIMG 08:51
PROVIDERS: ATTEND Family Medicine
DX: M48.04 Spinal stenosis, thoracic region (principal)

== ENCOUNTER → 2022-02-27 | Outpatient (CLI) | payer OTHER ==
[2022-02-27 11:33] LABS: BASO # 0.1 10^3/uL (0.0-0.2); EOS # 0.1 10^3/uL (0.0-0.5); HEMATOCRIT 44.4 % (42.0-52.0); HEMOGLOBIN 15.6 g/dl (13.5-17.5); LYMPH # 1.7 10^3/uL (1.5-5.0); LYMPH % 28.3 % (24.0-44.0); MEAN CORPUSCULAR HEMOGLOBIN 32.7 pg (27.0-33.0); MEAN CORPUSCULAR HGB CONC 35.1 g/dl (32.0-36.5); MEAN CORPUSCULAR VOLUME 93.1 fl (80.0-96.0); MONO # 0.6 10^3/uL (0.0-0.8); MONO % 9.8 % (2.0-8.0); NEUTROPHILS # 3.5 10^3/uL (1.5-8.5); NEUTROPHILS % 59.4 % (36.0-66.0); PLATELET COUNT, AUTOMATED 188 10^3/uL (150-450); RED BLOOD COUNT 4.77 10^6/uL (4.30-6.10); WHITE BLOOD COUNT 5.8 10^3/uL (4.0-10.0)
[2022-02-27 12:03] LABS: BLOOD UREA NITROGEN 4 MG/DL (7-18); CALCIUM LEVEL 9.8 MG/DL (8.8-10.2); CARBON DIOXIDE LEVEL 23 MEQ/L (21-32); CHLORIDE LEVEL 99 MEQ/L (98-107); GLOMERULAR FILTRATION RATE > 60.0 (>49); GLUCOSE, FASTING 98 MG/DL (70-100); POTASSIUM SERUM 4.3 MEQ/L (3.5-5.1); SODIUM LEVEL 131 MEQ/L (136-145); TOTAL PROTEIN 7.8 GM/DL (6.4-8.2)
[2022-02-28 12:18] LABS: ALBUMIN 4.36 GM/DL (3.29-5.55); ALBUMIN % 55.9 % (55.8-66.1); ALPHA-1-GLOBULIN % 4.3 % (2.9-4.9); ALPHA-1-GLOBULINS 0.34 GM/DL (0.17-0.41); ALPHA-2-GLOBULINS 0.94 GM/DL (0.42-0.99); ALPHA-2-GLOBULINS % 12.1 % (7.1-11.8); BETA-1-GLOBULINS 0.43 GM/DL (0.28-0.60); BETA-1-GLOBULINS % 5.5 % (4.7-7.2); BETA-2-GLOBULINS 0.33 GM/DL (0.19-0.55); BETA-2-GLOBULINS % 4.2 % (3.2-6.5)
== END ==
LOC: M RAD 09:31
PROVIDERS: ATTEND Orthopaedic Surgery
DX: R93.7 Abnormal findings on diagnostic imaging of other parts of musculoskeletal system (principal); R07.89 Other chest pain; S22.000A Wedge compression fracture of unspecified thoracic vertebra, initial encounter for closed fracture; M94.0 Chondrocostal junction syndrome [Tietze]
CPT/HCPCS: 36415; 78315; 80048; 82652; 84165; 85025; A9503

== ENCOUNTER → 2022-06-05 | Outpatient (CLI) | payer OTHER ==
[~2022-06-05] MED LIST changes: +ANOR1AER IN; +FLON1SPR; +OMEP40CA4 PO
== END ==
LOC: M LABSMTC 09:43
PROVIDERS: ATTEND Anesthesiology
DX: Z01.812 Encounter for preprocedural laboratory examination (principal); Z20.822 Contact with and (suspected) exposure to COVID-19

== ENCOUNTER 2022-06-10 12:43 | Day surgery (SDC) | payer OTHER ==
[~2022-06-10] VITALS: Ht 177.8 cm; Wt 77.1 kg
[~2022-06-10 12:43] MED LIST changes: +LIDOCAINE 2% 100MG/5ML SDV (FOR ANES.) As Ordered ONE; +MIDAZOLAM INJ 2MG/2ML VIAL (J2250 PER 1MG) As Ordered ONE; +fentaNYL 100 MCG/2 ML INJECTION As Ordered ONE; +propofoL 200 MG/20 ML VIAL As Ordered ONE
[2022-06-10] MEDS ORDERED: LR 1,000 ML IV SCH (13:00)
[2022-06-10] MEDS ORDERED: LIDOCAINE W/EPINEPHRINE 1% 20ML VIAL As Ordered ONE (13:53)
[2022-06-10] MEDS ORDERED: ceFAZolin 1GM VIAL (J0690 PER 500MG) As Ordered ONE (14:06)
[2022-06-10] MEDS ORDERED: ONDANSETRON 4MG 2ML VIAL As Ordered ONE (14:32)
[2022-06-10] MEDS ORDERED: KETOROLAC 60MG 2ML VIAL As Ordered ONE (14:32)
[2022-06-10] MEDS ORDERED: propofoL 200 MG/20 ML VIAL As Ordered ONE (14:37)
[2022-06-10 15:40] VITALS: BP 135/82
== END 2022-06-10 15:50 | disposition home or self-care (01) ==
LOC: M SDC 12:43
PROVIDERS: ATTEND Surgery
DX: D17.1 Benign lipomatous neoplasm of skin and subcutaneous tissue of trunk (principal); I10 Essential (primary) hypertension; K21.9 Gastro-esophageal reflux disease without esophagitis; F17.210 Nicotine dependence, cigarettes, uncomplicated; J44.9 Chronic obstructive pulmonary disease, unspecified; Z79.899 Other long term (current) drug therapy
CPT/HCPCS: 11406; 88304; 93005; J1885; J2250; J2405; J3010

== ENCOUNTER → 2022-10-30 | Outpatient (REF) | payer MEDICARE ==
[~2022-10-30] MED LIST changes: -LIDOCAINE 2% 100MG/5ML SDV (FOR ANES.) As Ordered ONE; -MIDAZOLAM INJ 2MG/2ML VIAL (J2250 PER 1MG) As Ordered ONE; -fentaNYL 100 MCG/2 ML INJECTION As Ordered ONE; -propofoL 200 MG/20 ML VIAL As Ordered ONE
[2022-10-30 14:57] LABS: BASO # 0.1 10^3/uL (0.0-0.2); BASO % 1.2 % (0.0-1.0); EOS # 0.1 10^3/uL (0.0-0.5); EOS % 1.3 % (0.0-3.0); HEMATOCRIT 42.7 % (42.0-52.0); HEMOGLOBIN 14.5 g/dl (13.5-17.5); LYMPH # 1.8 10^3/uL (1.5-5.0); LYMPH % 23.9 % (24.0-44.0); MONO # 0.9 10^3/uL (0.0-0.8); MONO % 11.8 % (2.0-8.0); NEUTROPHILS # 4.6 10^3/uL (1.5-8.5); NEUTROPHILS % 61.3 % (36.0-66.0); PLATELET COUNT, AUTOMATED 232 10^3/uL (150-450); WHITE BLOOD COUNT 7.5 10^3/uL (4.0-10.0)
[2022-10-30 15:08] LABS: INR 0.92; PROTHROMBIN TIME 12.6 SECONDS (12.5-14.5)
[2022-10-30 16:01] LABS: ALBUMIN 3.8 G/DL (3.2-5.2); ALKALINE PHOSPHATASE 65 U/L (46-116); ALT/SGPT 22 U/L (7.0-40); AST/SGOT 35 U/L (<34); BILIRUBIN,TOTAL 0.4 MG/DL (0.3-1.2); BLOOD UREA NITROGEN 12 MG/DL (9-23); CALCIUM LEVEL 9.4 MG/DL (8.3-10.6); CARBON DIOXIDE LEVEL 25 MMOL/L (20-31); CHLORIDE LEVEL 98 MMOL/L (98-107); CREATININE FOR GFR 0.91 MG/DL (0.70-1.30); FREE T4 1.28 NG/DL (0.89-1.76); GLOMERULAR FILTRATION RATE > 60.0 (>49); GLUCOSE, FASTING 109 MG/DL (74-106); POTASSIUM SERUM 5.2 MMOL/L (3.5-5.1); SODIUM LEVEL 130 MMOL/L (136-145); THYROID STIMULATING HORMONE 2.427 uIU/ML (0.55-4.78)
[2022-10-30 21:33] LABS: TOTAL PROTEIN 7.3 G/DL (5.7-8.2)
== END ==
LOC: M SFHCADAM 10:40
PROVIDERS: ATTEND Family Medicine
DX: M16.0 Bilateral primary osteoarthritis of hip (principal); F32.9 Major depressive disorder, single episode, unspecified; K74.60 Unspecified cirrhosis of liver; F10.10 Alcohol abuse, uncomplicated; B18.2 Chronic viral hepatitis C

== ENCOUNTER → 2022-10-30 | Outpatient (CLI) | payer MEDICARE | LOC: M ADAMS 11:21 | PROVIDERS: ATTEND Family Medicine | DX: M16.0 Bilateral primary osteoarthritis of hip (principal); M25.551 Pain in right hip; M25.552 Pain in left hip; Z53.9 Procedure and treatment not carried out, unspecified reason ==

== ENCOUNTER → 2022-11-13 | Outpatient (CLI) | payer MEDICARE | LOC: M SOG 07:58 | PROVIDERS: ATTEND Orthopaedic Surgery | DX: M16.0 Bilateral primary osteoarthritis of hip (principal); M25.551 Pain in right hip; M25.552 Pain in left hip ==

== ENCOUNTER → 2022-12-05 | Outpatient (CLI) | payer MEDICARE | LOC: M RAD 16:57 | PROVIDERS: ATTEND Family Medicine | DX: Z12.2 Encounter for screening for malignant neoplasm of respiratory organs (principal); F17.210 Nicotine dependence, cigarettes, uncomplicated ==

== ENCOUNTER → 2023-02-04 | Outpatient (CLI) | payer MEDICARE ==
[~2023-02-04] MED LIST changes: +BUPIVACAINE HCL 0.5% 30ML VIAL As Ordered ONE; +FLUT50SP17; -FLUTISP; +ISOVUE-300 61% 100ML VIAL As Ordered ONE; +LIDOCAINE 1% MDV 20ML VIAL As Ordered ONE; +methylPREDNISolone 80MG/ML SUSP 1ML VIAL As Ordered ONE
== END ==
LOC: M RAD 11:00
PROVIDERS: ATTEND Orthopaedic Surgery
DX: M16.0 Bilateral primary osteoarthritis of hip (principal)
CPT/HCPCS: 20610; 77002; J1040; Q9967

== ENCOUNTER 2023-02-06 10:03 | Outpatient (RCR) | payer MEDICARE ==
[~2023-02-06 10:03] MED LIST changes: -BUPIVACAINE HCL 0.5% 30ML VIAL As Ordered ONE; -ISOVUE-300 61% 100ML VIAL As Ordered ONE; -LIDOCAINE 1% MDV 20ML VIAL As Ordered ONE; -methylPREDNISolone 80MG/ML SUSP 1ML VIAL As Ordered ONE
== END 2023-02-12 ==
LOC: M PT 10:03
PROVIDERS: ATTEND Orthopaedic Surgery
DX: M16.0 Bilateral primary osteoarthritis of hip (principal)

== ENCOUNTER → 2023-02-26 | Outpatient (CLI) | payer MEDICARE ==
[~2023-02-26] MED LIST changes: +ISOVUE-300 61% 100ML VIAL As Ordered ONE; +LIDOCAINE 1% MDV 20ML VIAL As Ordered ONE; +methylPREDNISolone SUSP 40MG/ML 1ML VIAL (DEPO MEDROL) As Ordered ONE
== END ==
LOC: M RAD 14:07
PROVIDERS: ATTEND Orthopaedic Surgery
DX: M16.0 Bilateral primary osteoarthritis of hip (principal); M25.552 Pain in left hip
CPT/HCPCS: 20610; 77002; J1030; Q9967

== ENCOUNTER → 2023-10-20 | Outpatient (CLI) | payer MEDICARE ==
[~2023-10-20] MED LIST changes: -FLUT50SP17; +FLUTISP; -ISOVUE-300 61% 100ML VIAL As Ordered ONE; -LIDOCAINE 1% MDV 20ML VIAL As Ordered ONE; -methylPREDNISolone SUSP 40MG/ML 1ML VIAL (DEPO MEDROL) As Ordered ONE
== END ==
LOC: M SOG 11:07
PROVIDERS: ATTEND Physician Assistant
DX: M25.551 Pain in right hip (principal); M25.552 Pain in left hip

== ENCOUNTER → 2023-11-03 | Outpatient (CLI) | payer MEDICARE ==
[~2023-11-03] MED LIST changes: +ISOVUE-300 61% 100ML VIAL As Ordered ONE; +LIDOCAINE 1% MDV 20ML VIAL As Ordered ONE; +methylPREDNISolone SUSP 40MG/ML 1ML VIAL (DEPO MEDROL) As Ordered ONE
== END ==
LOC: M RAD 13:33
PROVIDERS: ATTEND Physician Assistant
DX: M25.552 Pain in left hip (principal); M25.551 Pain in right hip
CPT/HCPCS: 20610; 77002; J0665; J1030; Q9967

== ENCOUNTER 2024-01-18 08:53 | Emergency (ER) | payer MEDICARE ==
[~2024-01-18] VITALS: Ht 177.8 cm; Wt 81.6 kg
[2024-01-18 08:53] VITALS: TEMP 98.2
[~2024-01-18 08:53] MED LIST changes: -ISOVUE-300 61% 100ML VIAL As Ordered ONE; -LIDOCAINE 1% MDV 20ML VIAL As Ordered ONE; -methylPREDNISolone SUSP 40MG/ML 1ML VIAL (DEPO MEDROL) As Ordered ONE
[2024-01-18 08:56] VITALS: BP 170/92
[2024-01-18] MEDS ORDERED: TRAZ-257 (09:02)
[2024-01-18] MEDS ORDERED: CELE0.09 (09:02)
[2024-01-18] MEDS ORDERED: ACET-683 (09:02)
[2024-01-18] MEDS: BOOSTRIX VACCINE (TETANUS/DIPHTH/ACEL. PERTUSSIS) 0.5ML SYR IM.IMMUN ONE (09:50)
[2024-01-18] MEDS ORDERED: ISOVUE-370 76% 100ML VIAL As Ordered ONE (10:08)
[2024-01-18] MEDS: KETOROLAC 30 MG/ML 1ML VIAL IV ONE (10:38)
[2024-01-18] MEDS ORDERED: PERC5TAB12 PO (13:03)
[2024-01-18 13:05] VITALS: O2SAT 96
[2024-01-18] MEDS: PERCOCET 5MG/325MG TAB PO ONE (13:05)
== END 2024-01-18 13:47 | disposition home or self-care (01) ==
LOC: M ED 08:53
DX: S22.42XA Multiple fractures of ribs, left side, initial encounter for closed fracture (principal); S32.020A Wedge compression fracture of second lumbar vertebra, initial encounter for closed fracture; V18.2XXA Unspecified pedal cyclist injured in noncollision transport accident in nontraffic accident, initial encounter; M51.36 Other intervertebral disc degeneration, lumbar region; M51.26 Other intervertebral disc displacement, lumbar region; B19.20 Unspecified viral hepatitis C without hepatic coma; F17.200 Nicotine dependence, unspecified, uncomplicated; F12.10 Cannabis abuse, uncomplicated; F10.10 Alcohol abuse, uncomplicated; Y92.410 Unspecified street and highway as the place of occurrence of the external cause; Y93.55 Activity, bike riding; Y99.9 Unspecified external cause status; Z79.1 Long term (current) use of non-steroidal anti-inflammatories (NSAID); Z79.899 Other long term (current) drug therapy
CPT/HCPCS: 71101; 71260; 72131; 74177; 80047; 96374; 99284; J1885; Q9967

== ENCOUNTER → 2024-08-05 | Outpatient (REF) | payer MEDICARE ==
[~2024-08-05] MED LIST changes: +ACET-683; +CELE0.09; +PERC5TAB12 PO; +TRAZ-257
[2024-08-05 14:57] LABS: HEMATOCRIT 43.8 % (42.0-52.0); HEMOGLOBIN 15.2 g/dl (13.5-17.5); MEAN CORPUSCULAR HEMOGLOBIN 33.3 pg (27.0-33.0); MEAN CORPUSCULAR HGB CONC 34.7 g/dl (32.0-36.5); MEAN CORPUSCULAR VOLUME 96.1 fl (80.0-96.0); PLATELET COUNT, AUTOMATED 232 10^3/uL (150-450); RED BLOOD COUNT 4.56 10^6/uL (4.30-6.10)
[2024-08-05 15:01] LABS: ALBUMIN 3.8 G/DL (3.2-5.2); ALKALINE PHOSPHATASE 85 U/L (40-129); ALT/SGPT 24 U/L (7.0-40); AST/SGOT 30 U/L (<34); BILIRUBIN,TOTAL 0.3 MG/DL (0.3-1.2); BLOOD UREA NITROGEN 5 MG/DL (9-23); CALCIUM LEVEL 9.5 MG/DL (8.3-10.6); CARBON DIOXIDE LEVEL 26 MMOL/L (20-31); CHLORIDE LEVEL 94 MMOL/L (98-107); CHOLESTEROL LEVEL 161 MG/DL (<200); CREATININE FOR GFR 0.71 MG/DL (0.70-1.30); GLOMERULAR FILTRATION RATE > 60.0 (>49); GLUCOSE, FASTING 122 MG/DL (74-106); HDL CHOLESTEROL 44.6 MG/DL (>40); LDL CHOLESTEROL 82.8 MG/DL (<100); NON-HDL-C 116.4 MG/DL; POTASSIUM SERUM 4.6 MMOL/L (3.5-5.1); SODIUM LEVEL 127 MMOL/L (136-145); TOTAL PROTEIN 7.7 G/DL (5.7-8.2); TRIGLYCERIDES LEVEL 168 MG/DL (<150)
[2024-08-05 15:03] LABS: THYROID STIMULATING HORMONE 1.558 uIU/ML (0.55-4.78)
== END ==
LOC: M LAB REF 13:13
PROVIDERS: ATTEND Student in an Organized Health Care Education/Training Program
DX: I10 Essential (primary) hypertension (principal); N40.1 Benign prostatic hyperplasia with lower urinary tract symptoms

== ENCOUNTER → 2024-12-14 | Outpatient (REF) | payer OTHER, MEDICAID ==
[2024-12-14 15:12] LABS: HEMATOCRIT 47.7 % (42.0-52.0); HEMOGLOBIN 16.4 g/dl (13.5-17.5); MEAN CORPUSCULAR HEMOGLOBIN 33.2 pg (27.0-33.0); MEAN CORPUSCULAR HGB CONC 34.4 g/dl (32.0-36.5); MEAN CORPUSCULAR VOLUME 96.6 fl (80.0-96.0); PLATELET COUNT, AUTOMATED 255 10^3/uL (150-450); RED BLOOD COUNT 4.94 10^6/uL (4.30-6.10); WHITE BLOOD COUNT 8.8 10^3/uL (4.0-10.0)
[2024-12-14 15:15] LABS: PROSTATIC SPECIFIC AG MONITOR 1.02 NG/ML (< 4.00)
[2024-12-14 15:18] LABS: THYROID STIMULATING HORMONE 2.081 uIU/ML (0.55-4.78)
[2024-12-14 15:19] LABS: ALBUMIN 3.9 G/DL (3.2-5.2); ALKALINE PHOSPHATASE 73 U/L (40-129); ALT/SGPT 25 U/L (7.0-40); AST/SGOT 29 U/L (<34); BILIRUBIN,TOTAL 0.4 MG/DL (0.3-1.2); BLOOD UREA NITROGEN < 5 MG/DL (9-23); CARBON DIOXIDE LEVEL 25 MMOL/L (20-31); CHLORIDE LEVEL 100 MMOL/L (98-107); CHOLESTEROL LEVEL 152 MG/DL (<200); CHOLESTEROL RISK RATIO 3.39 (<5); CREATININE FOR GFR 0.65 MG/DL (0.70-1.30); GLOMERULAR FILTRATION RATE > 60.0 (>49); GLUCOSE, FASTING 117 MG/DL (74-106); HDL CHOLESTEROL 44.8 MG/DL (>40); LDL CHOLESTEROL 78.2 MG/DL (<100); NON-HDL-C 107.2 MG/DL; POTASSIUM SERUM 4.7 MMOL/L (3.5-5.1); SODIUM LEVEL 132 MMOL/L (136-145); TOTAL PROTEIN 7.5 G/DL (5.7-8.2); TRIGLYCERIDES LEVEL 145 MG/DL (<150)
== END ==
LOC: M LAB REF 12:38
PROVIDERS: ATTEND Student in an Organized Health Care Education/Training Program
DX: I10 Essential (primary) hypertension (principal); N40.1 Benign prostatic hyperplasia with lower urinary tract symptoms